=== PATIENT | female | born 1970 | race Caucasian/White ===

== ENCOUNTER → 2018-01-08 08:40 | Outpatient (CLI) | payer OTHER, SELFPAY ==
[2018-01-08 12:34] LABS: Absolute Neutrophil Count 5.3 X10^3/uL (2.0-7.7); Basophil# 0.04 X10^3/uL; Basophil% 0.5 % (0-1); Eosinophil# 0.32 X10^3/uL; Eosinophils% 4.1 % (0-5); Hematocrit 39.4 % (37-47); Hemoglobin 12.6 g/dl (12.0-15.0); Lymphocyte % 19.3 % (19-41); Mean Corpuscular Hgb 26.9 pg (27.0-32.0); Mean Platelet Vol. 10.2 fl (6.2-12.0); Monocyte# 0.58 X10^3/uL; Monocyte% 7.5 % (0-10); Neutrophil # 5.33 X10^3/uL (2.7-7.7); Neutrophil % 68.5 % (47-70); Platelet Count 333 K/mm3 (150-450); RBC Distribution Width CV 14.2 % (11.6-14.6); RBC Distribution Width SD 42.8 fl (35.1-43.9); Red Blood Count 4.69 M/mm3 (4.2-5.4); White Blood Count 7.8 K/mm3 (4.4-11.0)
[2018-01-08 12:49] LABS: POSITIVE COUNT NO; POSITIVE DIFFERENTIAL NO; POSITIVE MORPHOLOGY NO
[2018-01-08 12:57] LABS: T3 Total - Triiodothyronine 0.92 ng/mL (0.6-1.81); Vitamin B12 1122 pg/mL (211-911); Vitamin D,25 Hydroxy 28.5 ng/mL (29.95-100.01)
[2018-01-08 13:03] LABS: ALB/GLOB Ratio 1.1 RATIO (0.9-2.4); AST(SGOT) 20 U/L (15-37); Alanine Aminotransfer ALT/SGPT 31 U/L (13-56); Alkaline Phosphatase 75 U/L (45-117); Anion Gap 8 (5-15); BUN 24 mg/dL (7-18); Calcium,Total 8.8 mg/dL (8.5-10.1); Chloride 106 mmol/L (98-107); Cholesterol 160 mg/dL (200); Creatinine, Serum 0.83 mg/dL (0.55-1.02); EST Glomerular Filtration Rate 79 mL/min (>60); Est Glom Filt Rate - Afr Amer 96 mL/min (>60); Globulin 3.8 g/dL (2.2-4.2); Glucose 92 mg/dL (74-106); High Density Lipoprotein 34 mg/dL; Iron 42 ug/dL (50-170); Potassium 4.3 mmol/L (3.5-5.1); Protein, Total 7.8 g/dL (6.4-8.2); Sodium Level 139 mmol/L (136-145); T4 Free Direct 1.02 ng/dL (0.76-1.46); Thyroid Stim Hormone (TSH) 1.48 uIU/mL (0.358-3.74); Triglycerides 100 mg/dL; Very Low Density Lipoprotein 20 mg/dL (5-40)
== END ==
PROVIDERS: Family Provider Family Medicine; PCP Family Medicine; Visit Provider Family Medicine
DX: Z00.01 Encounter for general adult medical examination with abnormal findings (principal); E03.9 Hypothyroidism, unspecified; D64.9 Anemia, unspecified; R73.01 Impaired fasting glucose
CPT/HCPCS: 36415; 80053; 80061; 82306; 82607; 83540; 84439; 84443; 84480; 85025

== ENCOUNTER 2018-01-29 08:00 | Outpatient (RCR) | payer OTHER, SELFPAY | END 2018-01-29 23:59 | LOC: NS 08:00 | PROVIDERS: Family Provider Family Medicine; PCP Family Medicine; Referring Provider Family Medicine; Visit Provider Family Medicine | DX: E66.9 Obesity, unspecified (principal); Z68.35 Body mass index [BMI] 35.0-35.9, adult; E03.9 Hypothyroidism, unspecified; E28.2 Polycystic ovarian syndrome; R73.01 Impaired fasting glucose; Z71.3 Dietary counseling and surveillance | CPT/HCPCS: 97802; 97803 ==

== ENCOUNTER 2018-02-26 09:00 | Outpatient (RCR) | payer OTHER, SELFPAY | END 2018-02-28 23:59 | LOC: NS 09:00 | PROVIDERS: Family Provider Family Medicine; PCP Family Medicine; Referring Provider Family Medicine; Visit Provider Family Medicine | DX: E66.9 Obesity, unspecified (principal); Z68.35 Body mass index [BMI] 35.0-35.9, adult; E03.9 Hypothyroidism, unspecified; E28.2 Polycystic ovarian syndrome; R73.01 Impaired fasting glucose; Z71.3 Dietary counseling and surveillance | CPT/HCPCS: 97803 ==

== ENCOUNTER → 2018-03-05 10:20 | Outpatient (CLI) | payer OTHER, SELFPAY ==
--- NOTE | 2018-03-05 10:21 | BI_ITS ---
MAMMOGRAPHY - BILATERAL SCREENING REASON FOR EXAM: Female, 47 years old. Routine annual screening examination. PERTINENT HISTORY: Grandmother with breast cancer. TECHNIQUE: Digital bilateral breast shorty (3D mammographic acquisition) in the CC and MLO projections. 2-D mediolateral oblique (MLO) and craniocaudad (CC) views of both breasts were obtained. CAD: Full Field Digital Mammography with Computer Added Detection was performed. COMPARISON: Comparison is made with prior study dated February 02, 2017 and September 07, 2015. FINDINGS: Breast Composition: There are scattered areas of fibroglandular density. There are no dominant masses or suspicious calcifications. No other significant abnormalities are identified. There has been no significant change since the prior study. BI/SCREENING MAMM (CAD), BILAT IMPRESSION: Stable bilateral screening mammogram. Yearly follow-up mammogram recommended. (A) ASSESSMENT CATEGORY: BIRADS Category 1: Negative. A letter regarding these results will be sent to the patient by the facility within 30 days. Approximately 10% of breast cancers are not detected by mammography. A normal mammogram should not delay biopsy of a clinically suspicious abnormality. [id number] Electronically Signed: Kings Bassett MD at 14:29 EST Tel [phone], Service support ,
== END ==
PROVIDERS: Family Provider Family Medicine; PCP Family Medicine; Visit Provider Family Medicine
DX: Z12.31 Encounter for screening mammogram for malignant neoplasm of breast (principal)
CPT/HCPCS: 77063; 77067

== ENCOUNTER 2018-03-12 08:44 | Outpatient (RCR) | payer OTHER, SELFPAY ==
--- OUTSIDE RECORDS SUMMARY | 2018-04-28 04:29 | XMS RPT_ITS ---
:1970 Author Organization [facility] Care Team Providers Name Role Phone Malys, Sonal Attending Unavailable Malys, Sonal Referring Unavailable Malys, Sonal Primary Care Unavailable Malys, Sonal Attending Unavailable Malys, Sonal Primary Care Unavailable Malys, Sonal Attending Unavailable Malys, Sonal Referring Unavailable Malys, Sonal Primary Care Unavailable Malys, Sonal Attending Unavailable Malys, Sonal Referring Unavailable Malys, Sonal Primary Care Unavailable Malys, Sonal Attending Unavailable Sonal Botello Referring Unavailable Malys, Sonal Primary Care Unavailable Malys, Sonal Attending Unavailable Rosmery, Sonal Primary Care Unavailable PROBLEMS PROBLEMS DATE TYPE CONDITION / CODE ATTENDING STATUS SOURCE 04/16/2018 Unknown E66.9 - Obesity, Sonal Botello Active [place] unspecified / Community E66.9(ICD-10) Hospital Repository PROCEDURES PROCEDURES No Procedure Records FoundRESULTS RESULTS SCREENING MAMM (CAD), Observed: 03/05/2018 Status: F Source: [place]IL[place] 10:21 AM [facility] REPOSITORY [facility] Imaging Services [address] [place] [address] SCREENING MAMM (CAD), BILAT MR#: [id number] Acct: [id number] Name: NICKIE PEREA Rep #: [id number] : 1970 F 47 From: Kings Bassett MD PCP: Sonal Botello DO Status: REG CLI Study: SCREENING MAMM (CAD), BILAT Date of Exam: 03/05/18 Exam# [id number] Ordering Dr: Sonal Botello DO MAMMOGRAPHY - BILATERAL SCREENING REASON FOR EXAM: Female, 47 years old. Routine annual screening examination. PERTINENT HISTORY: Grandmother with breast cancer. TECHNIQUE: Digital bilateral breast shorty (3D mammographic acquisition) in the CC and MLO projections. 2-D mediolateral oblique (MLO) and craniocaudad (CC) views of both breasts were obtained. CAD: Full Field Digital Mammography with Computer Added Detection was performed. COMPARISON: Comparison is made with prior study dated February 02, 2017 and September 07, 2015. FINDINGS: Breast Composition: There are scattered areas of fibroglandular density. There are no dominant masses or suspicious calcifications. No other significant abnormalities are identified. There has been no significant change since the prior study. BI/SCREENING MAMM (CAD), BILAT IMPRESSION: Stable bilateral screening mammogram. Yearly follow-up mammogram recommended. (A) ASSESSMENT CATEGORY: BIRADS Category 1: Negative. A letter regarding these results will be sent to the patient by the facility within 30 days. Approximately 10% of breast cancers are not detected by mammography. A normal mammogram should not delay biopsy of a clinically suspicious abnormality. 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 CBC W/DIFF, AUTOMATED Collected: 01/08/2018 Status: F Source: [place] 8:43 AM [facility] REPOSITORY TYPE CODE TESTS RESULT OUT OF RANGE REFERENCE UNITS LAB L100.1000 4.4-11.0 K/mm3 Normal WBC 7.8 LAB L100.1200 4.2-5.4 M/mm3 Normal RBC 4.69 LAB L100.1300 12.0-15.0 g/dl Normal HGB 12.6 LAB L100.1400 37-47 % Normal HCT 39.4 LAB L100.1500 81-99 fL Normal MCV 84.0 LAB L100.1600 27.0-32.0 pg Low MCH 26.9 LAB L100.1700 32-36 g/gl Normal MCHC 32.0 LAB L100.1810 11.6-14.6 % Normal RDW CV 14.2 LAB L100.1820 35.1-43.9 fl Normal RDW SD 42.8 LAB L100.1900 150-450 K/mm3 Normal PLT 333 LAB L100.2000 6.2-12.0 fl Normal MPV 10.2 LAB L100.2100 47-70 % Normal NEUT% 68.5 LAB L100.2200 19-41 % Normal LY% 19.3 LAB L100.2300 0-10 % Normal MONO% 7.5 LAB L100.2400 0-5 % Normal EO% 4.1 LAB L100.2500 0-1 % Normal BASO% 0.5 LAB L100.2550 0.0-0.9 % Normal IM GRAN % 0.100 Result Comment: IG% - Immature Granulocytes (promyelocytes, myelocytes and metamyelocytes) > 1% indicates that a LEFT SHIFT is Present. LAB L100.2620 2.0-7.7 X10 3/uL Normal Absolute Neut 5.3 LAB L100.2720 0.83-4.51 X10 3/ul Normal Absolute Lymph 1.50 Performed By: #### L100.0100 #### [facility] [address] [place], [address] T3 TOTAL - TRIIODOTHYRONINE Collected: 01/08/2018 Status: F Source: [place] 8:43 AM [facility] REPOSITORY TYPE CODE TESTS RESULT OUT OF RANGE REFERENCE UNITS LAB L501.9186 0.6-1.81 ng/mL Normal T3 Total 0.92 Performed By: #### L501.9186, L503.0105, L506.1000 #### [facility] [address] [place], [address] VITAMIN B12 Collected: 01/08/2018 Status: F Source: [place] 8:43 AM [facility] REPOSITORY TYPE CODE TESTS RESULT OUT OF REFERENCE UNITS RANGE LAB L503.0105 211-911 pg/mL High Vitamin B12 1122 Performed By: #### L501.9186, L503.0105, L506.1000 #### [facility] [address] [place], [address] VITAMIN D,25 HYDROXY Collected: 01/08/2018 Status: F Source: [place] 8:43 AM [facility] REPOSITORY TYPE CODE TESTS RESULT OUT OF REFERENCE UNITS RANGE LAB L506.1000 29.95-100.01 ng/mL Low Vitamin D 28.5 25-OH Result Comment: Vitamin D 25(OH) Status Range Deficiency <20 ng/mL (50nmol/L) Insuffciency 20 - 30 ng/mL (50 - 75 nmol/L) Sufficiency 30 - 100 ng/mL (75 - 250 nmol/L) Toxicity >100 ng/mL (>250 nmol/L) Performed By: #### L501.9186, L503.0105, L506.1000 #### [facility] [address] [place], [address] COMPREHENSIVE METABOLIC Collected: 01/08/2018 Status: F Source: [place] VALENTINE 8:43 AM [facility] REPOSITORY TYPE CODE TESTS RESULT OUT OF RANGE REFERENCE UNITS LAB L501.0100 74-106 mg/dL Normal GLU 92 Result Comment: Please note revised GLUCOSE reference range effective 2017. LAB L501.1000 7-18 mg/dL High BUN 24 LAB L501.1100 0.55-1.02 mg/dL Normal CREAT,SERUM 0.83 Result Comment: The validity of the calculated GFR AND GFRAA in patients over 70 years has not been determined. Clinical correlation is essential. LAB L501.1110 >60 mL/min Normal EST GFR 79 Result Comment: Non- GFR Calc LAB L501.1115 >60 mL/min Normal EST GFR - AA 96 Result Comment: GFR Calc LAB L501.1300 10-20 RATIO High BUN/CRE 29.0 LAB L501.1500 6.4-8.2 g/dL T Normal PROT 7.8 LAB L501.1800 3.2-5.0 g/dL Normal ALB 4.0 LAB L501.1950 2.2-4.2 g/dL Normal GLOB 3.8 LAB L501.2000 0.9-2.4 RATIO Normal A/G 1.1 LAB L501.2200 8.5-10.1 mg/dL CA Normal 8.8 LAB L501.4100 15-37 U/L Normal AST 20 LAB L501.4305 45-117 U/L Normal ALK P 75 LAB L501.4405 13-56 U/L Normal ALT 31 LAB L501.4600 0.20-1.00 mg/dL T Normal BILI 0.40 LAB L501.5300 136-145 mmol/L NA Normal 139 LAB L501.5600 3.5-5.1 mmol/L K Normal 4.3 LAB L501.5900 98-107 mmol/L CL Normal 106 LAB L501.6100 21.0-32.0 mmol/L Normal CO2 25.0 LAB L501.6200 5-15 Normal GAP 8 Performed By: #### L500.4050, L500.4100, L501.9520, L503.6150, L506.0400 #### [facility] [address] [place], [place], [id number] LIPID PROFILE Collected: 01/08/2018 Status: F Source: [place] 8:43 AM [facility] REPOSITORY TYPE CODE TESTS RESULT OUT OF RANGE REFERENCE UNITS LAB L501.4900 200 mg/dL Normal CHOL 160 Result Comment: <200 mg/dL Desirable 200-240 mg/dL Borderline >240 mg/dL High Risk LAB L501.5000 mg/dL Normal TRIG 100 Result Comment: The drugs N-Acetylcysteine and Metamizole may falsely depress this assay. Serum Triglycerides Reference Interval Normal <150 mg/dL Borderline high 150 - 199 mg/dL High 200 - 499 mg/dL Very High > or = 500 mg/dL LAB L501.6400 mg/dL Low HDL 34 Result Comment: The drugs N-Acetylcysteine and Metamizole may falsely depress this assay. Reference Range HDL <40 mg/dL Low HDL Cholesterol HDL >or= 60 mg/dL High HDL Cholesterol LAB L501.6500 0-130 mg/dL Normal LDL 106 LAB L501.6600 5-40 mg/dL Normal VLDL 20 Performed By: #### L500.4050, L500.4100, L501.9520, L503.6150, L506.0400 #### [facility] [address] [place], [place], [id number] THYROID STIM HORMONE Collected: 01/08/2018 Status: F Source: [place] (TSH) 8:43 AM [facility] REPOSITORY TYPE CODE TESTS RESULT OUT OF RANGE REFERENCE UNITS LAB L501.9520 0.358-3.74 uIU/mL Normal TSH 1.48 Performed By: #### L500.4050, L500.4100, L501.9520, L503.6150, L506.0400 #### [facility] [address] [place], [address] IRON Collected: 01/08/2018 Status: F Source: [place] 8:43 AM [facility] REPOSITORY TYPE CODE TESTS RESULT OUT OF RANGE REFERENCE UNITS LAB L503.6150 50-170 ug/dL Low IRON 42 Performed By: #### L500.4050, L500.4100, L501.9520, L503.6150, L506.0400 #### [facility] [address] [place], [address] T4 FREE DIRECT Collected: 01/08/2018 Status: F Source: [place] 8:43 AM [facility] REPOSITORY TYPE CODE TESTS RESULT OUT OF RANGE REFERENCE UNITS LAB L506.0400 0.76-1.46 ng/dL Normal T4 FREE 1.02 DIRECT Performed By: #### L500.4050, L500.4100, L501.9520, L503.6150, L506.0400 #### [facility] [address] [place], [address] ALLERGIES ALLERGIES No Allergies Records FoundENCOUNTERS ENCOUNTERS ADMIT/DISCHARGE ACCOUNT ADMITTING ENCOUNTER LOCATION SOURCE NUMBER CLASS 04/16/2018 [id number] Ambulatory [place] 2 [facility] ing:NS Repository 03/12/2018/ [id number] Ambulatory [place] 8 4 [facility] ing:NS Repository 03/05/2018 [id number] Ambulatory [place] 5 [facility] ing:OPBI Repository 02/26/2018/ [id number] Ambulatory [place] 8 0 [facility] ing:NS Repository 01/29/2018/ [id number] Ambulatory [place] 8 8 [facility] ing:NS Repository 01/08/2018 [id number] Ambulatory [place] 3 [facility] ing:BFHLAB Repository PAYERS PAYERS ENCOUNTER GUARANTOR PAYER SUBSCRIBER SOURCE 04/16/2018 NICKIE [id number] Primary NICKIE JONES: [place] Insurance[id number] [address]Adp: [id number] Repository Date:4751-18-82TT [address] [place] [address]DX: 04/16/2018 Secondary NOT GIVENUNK [place] Insurance:SELF PAY [facility] Number: Effective Repository Date:2018-04-01 03/12/2018 NICKIE [id number] Primary Insurance:[facility] AMAURY HERBERTB: [place] [employer] [id number] [place] [address]Uti: Number: Repository [id number] (HP) Date:7047-29-[address] [address], [place] [address]PB: CHECK WEBSITE 03/12/2018 Secondary NOT GIVENUNK [place] Insurance:SELF PAY [facility] Number: Effective Repository Date:2018-03-01 03/05/2018 NICKIE [id number] Primary Insurance:[facility] AMAURY HERBERTB: [place] [employer] [id number] Hospital [place] [address]Lom: Number: Repository [id number] () Date:7835-11-91[address] [address], [place] [address]VH: CHECK WEBSITE 03/05/2018 Secondary NOT GIVENUNK [place] Insurance:SELF PAY [facility] Number: Effective Repository Date:2018-01-21 02/26/2018 NICKIE [id number] Primary Insurance:[facility] AMAURY HERBERTB: [place] SPRZOILA [employer] [id number] Hospital [place] [address]Slo: Number: Repository [id number] () Date:6188-22-45LC [address] [address]VFFNFMT, [place] [address]OF: CHECK WEBSITE 02/26/2018 Secondary NOT GIVENUNK [place] Insurance:SELF PAY [facility] Number: Effective Repository Date:2018-01-30 01/29/2018 NICKIE [id number] Primary Insurance:[facility] AMAURY HERBERTB: [place] [employer] [id number] Hospital [place] [address]Llq: Number: Repository [id number] (HP) Date:1213-29-42X[address] [address], [place] [address]SE: CHECK WEBSITE 01/29/2018 Secondary NOT GIVENUNK [place] Insurance:SELF PAY [facility] Number: Effective Repository Date:2018-01-14 01/08/2018 NICKIEMERCEDES [id number] Primary Insurance:[facility] Amaury HerbertB: [place] SPRU[place] [facility] [id number], [place] [address]Kpc: Number: Repository [id number] (HP) Date:8035-52-51HA [address] [address]ZKEPD, [place] [address]NZ: CHECK WEBSITE 01/08/2018 Secondary NOT GIVENUNK [place] Insurance:SELF PAY [facility] Number: Effective Repository Date:2018-01-08
== END 2018-03-31 23:59 ==
LOC: NS 08:44
PROVIDERS: Family Provider Family Medicine; PCP Family Medicine; Referring Provider Family Medicine; Visit Provider Family Medicine
DX: E66.9 Obesity, unspecified (principal); Z68.35 Body mass index [BMI] 35.0-35.9, adult; E03.9 Hypothyroidism, unspecified; E28.2 Polycystic ovarian syndrome; R73.01 Impaired fasting glucose; Z71.3 Dietary counseling and surveillance
CPT/HCPCS: 97803

== ENCOUNTER 2018-04-16 11:00 | Outpatient (RCR) | payer OTHER, SELFPAY | END 2018-05-01 23:59 | LOC: NS 11:00 | PROVIDERS: Family Provider Family Medicine; PCP Family Medicine; Referring Provider Family Medicine; Visit Provider Family Medicine | DX: E66.9 Obesity, unspecified (principal); Z68.35 Body mass index [BMI] 35.0-35.9, adult; E03.9 Hypothyroidism, unspecified; E28.2 Polycystic ovarian syndrome; R73.01 Impaired fasting glucose; Z71.3 Dietary counseling and surveillance | CPT/HCPCS: 97803 ==

== ENCOUNTER 2018-05-07 09:48 | Outpatient (RCR) | payer OTHER, SELFPAY | END 2018-05-07 23:59 | disposition home or self-care (01) | LOC: NS 09:48 | PROVIDERS: Family Provider Family Medicine; PCP Family Medicine; Referring Provider Family Medicine; Visit Provider Family Medicine | DX: E66.9 Obesity, unspecified (principal); Z68.35 Body mass index [BMI] 35.0-35.9, adult; E03.9 Hypothyroidism, unspecified; E28.2 Polycystic ovarian syndrome; R73.01 Impaired fasting glucose; Z71.3 Dietary counseling and surveillance | CPT/HCPCS: 97803 ==

== ENCOUNTER → 2018-11-26 | Outpatient (CLI) | payer OTHER, SELFPAY ==
[2018-11-26 15:48] LABS: Absolute Lymphocyte Count 1.96 X10^3/uL (0.83-4.51); Absolute Neutrophil Count 5.7 X10^3/uL (2.0-7.7); Basophil# 0.08 X10^3/uL; Basophil% 0.9 % (0-1); Eosinophil# 0.68 X10^3/uL; Eosinophils% 7.4 % (0-5); Hematocrit 41.2 % (37-47); Hemoglobin 13.3 g/dL (12.0-15.0); Lymphocyte # 1.96 X10^3/ul (4.0); Lymphocyte % 21.4 % (19-41); Mean Corp Hgb Conc 32.3 g/dL (32-36); Mean Corpuscular Hgb 28.1 pg (27.0-32.0); Mean Corpuscular Volume 86.9 fL (81-99); Monocyte# 0.69 X10^3/uL; Monocyte% 7.5 % (0-10); NRBC Flagged by Analyzer 0 % (0-5); Neutrophil # 5.72 X10^3/uL (2.7-7.7); Neutrophil % 62.6 % (47-70); Platelet Count 335 K/mm3 (150-450); RBC Distribution Width CV 13.2 % (11.6-14.6); RBC Distribution Width SD 41.8 fl (35.1-43.9); Red Blood Count 4.74 M/mm3 (4.2-5.4); White Blood Count 9.2 K/mm3 (4.4-11.0)
[2018-11-26 16:08] LABS: Progesterone Level 10.52 ng/mL (See Comment); Vitamin D,25 Hydroxy 39.3 ng/mL (29.95-100.01)
[2018-11-26 17:30] LABS: AST(SGOT) 16 U/L (15-37); Alanine Aminotransfer ALT/SGPT 31 U/L (13-56); Albumin, Serum 4.1 g/dL (3.2-5.0); Alkaline Phosphatase 75 U/L (45-117); Anion Gap 6 (5-15); BUN 31 mg/dL (7-18); BUN/Creat Ratio 36.9 RATIO (10-20); Calcium,Total 9.2 mg/dL (8.5-10.1); Chloride 108 mmol/L (98-107); Creatinine, Serum 0.84 mg/dL (0.55-1.02); EST Glomerular Filtration Rate 78 mL/min (>60); Est Glom Filt Rate - Afr Amer 94 mL/min (>60); Estradiol 75.4 pg/mL; Ferritin 31 ng/mL (8-252); Follicle Stimulating Hormone 3.7 mIU/mL; Free T3 2.2 pg/mL (2.18-3.98); Glucose 84 mg/dL (74-106); Iron 53 ug/dL (50-170); Potassium 4.2 mmol/L (3.5-5.1); Protein, Total 8.1 g/dL (6.4-8.2); Sodium Level 138 mmol/L (136-145); T4 Free Direct 0.86 ng/dL (0.76-1.46); Thyroid Stim Hormone (TSH) 2.38 uIU/mL (0.358-3.74)
== END | disposition home or self-care (01) ==
LOC: BFHLAB 11:57
PROVIDERS: Family Provider Family Medicine; PCP Family Medicine; Visit Provider Family Medicine
DX: E03.9 Hypothyroidism, unspecified (principal); E28.2 Polycystic ovarian syndrome; D64.9 Anemia, unspecified; N92.0 Excessive and frequent menstruation with regular cycle; R73.01 Impaired fasting glucose; E55.9 Vitamin D deficiency, unspecified
CPT/HCPCS: 36415; 80053; 82306; 82670; 82728; 83001; 83002; 83540; 84144; 84439; 84443; 84481; 85025

== ENCOUNTER → 2018-12-24 13:34 | Outpatient (CLI) | payer OTHER, SELFPAY | PROVIDERS: Family Provider Family Medicine; PCP Family Medicine; Referring Provider Family Medicine; Visit Provider Family Medicine | DX: G47.30 Sleep apnea, unspecified (principal); G47.10 Hypersomnia, unspecified | CPT/HCPCS: 95806 ==

== ENCOUNTER 2019-01-14 10:00 | Outpatient (RCR) | payer OTHER, SELFPAY | END 2019-01-29 23:59 | LOC: NS 10:00 | PROVIDERS: Family Provider Family Medicine; PCP Family Medicine; Visit Provider Family Medicine | DX: Z71.3 Dietary counseling and surveillance (principal); E66.9 Obesity, unspecified | CPT/HCPCS: 97802; 97803 ==

== ENCOUNTER 2019-02-11 09:18 | Outpatient (RCR) | payer OTHER, SELFPAY | END 2019-02-28 23:59 | LOC: NS 09:18 | PROVIDERS: Family Provider Family Medicine; PCP Family Medicine; Visit Provider Family Medicine | DX: Z71.3 Dietary counseling and surveillance (principal); E66.9 Obesity, unspecified | CPT/HCPCS: 97803 ==

== ENCOUNTER → 2019-02-24 10:33 | Outpatient (CLI) | payer OTHER, SELFPAY | PROVIDERS: Family Provider Family Medicine; PCP Family Medicine; Referring Provider Family Medicine; Visit Provider Family Medicine | DX: G47.33 Obstructive sleep apnea (adult) (pediatric) (principal) ==

== ENCOUNTER → 2019-02-24 12:15 | Outpatient (CLI) | payer OTHER, SELFPAY ==
[2019-02-24 08:13] VITALS: BMI 33.9
[2019-03-02 21:06] LABS: HPV APTIMA, High Risk Negative (Negative)
== END ==
PROVIDERS: Family Provider Family Medicine; PCP Family Medicine; Referring Provider Nurse Practitioner Women's Health; Visit Provider Nurse Practitioner Women's Health
DX: Z12.4 Encounter for screening for malignant neoplasm of cervix (principal)
CPT/HCPCS: 87624; 88175; G0145

== ENCOUNTER → 2019-03-11 12:50 | Outpatient (CLI) | payer OTHER, SELFPAY ==
[2019-02-24 08:13] VITALS: BMI 33.9
--- NOTE | 2019-03-11 13:09 | US_ITS ---
STUDY: ULTRASOUND OF THE FEMALE PELVIS - COMPLETE REASON FOR EXAM: Female, 48 years old. Menorrhagia TECHNIQUE: Transabdominal and Transvaginal TECHNICAL QUALITY: Adequate. COMPARISON: 05/03/2014 FINDINGS: The uterus is anteverted and is in a midline position. The uterus measures 10.3 x 6.1 x 5.3 cm. Normal uterine cervix. The endometrium measures 11 mm in thickness, and is hyperechoic. There is no demonstrated endometrial mass. There are 2 fibroids noted in the uterus, measuring 2.5 x 2.0 cm and 2.4 x 2.3 cm. The right ovary is visualized. The right ovary measures 3.6 x 2.8 x 2.7 cm. There are physiologic follicles noted in the right ovary. There is no visualized right adnexal mass or complex lesion. There is normal arterial and normal venous vascularity. The left ovary is visualized. The left ovary measures 3.3 x 3.2 x 1.8 cm. There is no left ovarian cyst or ovarian mass. There is no visualized left adnexal mass or complex lesion. There is normal arterial and normal venous vascularity. There is a small amount of pelvic free fluid. US/Pelvic (Non ) IMPRESSION: Fibroid uterus. Thickened endometrium which is likely due to cyclic change. Normal bilateral ovaries with normal Doppler flow. Small amount pelvic free fluid. Electronically Signed: Vidal Jose, at 20:32 EST Tel , Service support ,
--- NOTE | 2019-03-11 13:09 | US_ITS ---
STUDY: ULTRASOUND OF THE FEMALE PELVIS - COMPLETE REASON FOR EXAM: Female, 48 years old. Menorrhagia TECHNIQUE: Transabdominal and Transvaginal TECHNICAL QUALITY: Adequate. COMPARISON: 05/03/2014 FINDINGS: The uterus is anteverted and is in a midline position. The uterus measures 10.3 x 6.1 x 5.3 cm. Normal uterine cervix. The endometrium measures 11 mm in thickness, and is hyperechoic. There is no demonstrated endometrial mass. There are 2 fibroids noted in the uterus, measuring 2.5 x 2.0 cm and 2.4 x 2.3 cm. The right ovary is visualized. The right ovary measures 3.6 x 2.8 x 2.7 cm. There are physiologic follicles noted in the right ovary. There is no visualized right adnexal mass or complex lesion. There is normal arterial and normal venous vascularity. The left ovary is visualized. The left ovary measures 3.3 x 3.2 x 1.8 cm. There is no left ovarian cyst or ovarian mass. There is no visualized left adnexal mass or complex lesion. There is normal arterial and normal venous vascularity. There is a small amount of pelvic free fluid. US/Transvaginal Non- IMPRESSION: Fibroid uterus. Thickened endometrium which is likely due to cyclic change. Normal bilateral ovaries with normal Doppler flow. Small amount pelvic free fluid. Electronically Signed: Vidal Jose, at 20:32 EST Tel , Service support ,
--- NOTE | 2019-03-11 13:10 | BI_ITS ---
MAMMOGRAPHY - BILATERAL SCREENING REASON FOR EXAM: Female, 48 years old. Routine annual screening examination. PERTINENT HISTORY: Grandmother with breast cancer. TECHNIQUE: Digital bilateral breast matias (3D mammographic acquisition) in the CC and MLO projections. 2-D mediolateral oblique (MLO) and craniocaudad (CC) views of both breasts were obtained. CAD: Full Field Digital Mammography with Computer Added Detection was performed. COMPARISON: Comparison is made with prior examination dated March 05, 2018 and February 02, 2017. FINDINGS: Breast Composition: There are scattered areas of fibroglandular density. There are no dominant masses or suspicious calcifications. No other significant abnormalities are identified. There has been no significant change since the prior study. BI/SCREEN MAMM (CAD) W/MATIAS BILAT IMPRESSION: Stable bilateral screening mammogram. Yearly follow-up mammogram recommended. (A) ASSESSMENT CATEGORY: BIRADS Category 1: Negative. A letter regarding these results will be sent to the patient by the facility within 30 days. Approximately 10% of breast cancers are not detected by mammography. A normal mammogram should not delay biopsy of a clinically suspicious abnormality. [id number] Electronically Signed: Kings Bassett, at 14:56 EST , Service support ,
[2019-03-11 14:00] LABS: T4 Free Direct 0.88 ng/dL (0.76-1.46); Thyroid Stim Hormone (TSH) 0.58 uIU/mL (0.358-3.74)
== END ==
PROVIDERS: Family Provider Family Medicine; PCP Family Medicine; Referring Provider Family Medicine; Visit Provider Family Medicine
DX: Z12.31 Encounter for screening mammogram for malignant neoplasm of breast (principal); E03.9 Hypothyroidism, unspecified; N92.0 Excessive and frequent menstruation with regular cycle; N85.2 Hypertrophy of uterus; Z86.018 Personal history of other benign neoplasm
CPT/HCPCS: 36415; 76830; 76856; 77063; 77067; 84439; 84443; 84481; 93976

== ENCOUNTER → 2019-04-14 17:18 | Outpatient (CLI) | payer OTHER, SELFPAY ==
--- NOTE | 2019-04-14 | EMB_PTH ---
PATIENT: NICKIE PEREA LOC: [facility] U#:[id number] AGE/SX: 54/F ROOM: RE04/14/[address]: Dr. Toña Thakkar MD : 1970 BED: DIS: SPEC #: [id number] RECD: 04/14/19 16:32 STATUS: NAOMIE KORY #: [id number] PATRICIA: 04/14/19 00:[address]: Toña Thakkar DEPT: SURGICAL PATHOLOGY RECD BY: Yehuda Trammell ENTERED: 04/15/19 08:36 SP TYPE: ENDOM BX/C ML DR: Dr. Sonal Botello DO Tissues: Endometrium, NOS Procedures: Surgery Specimen Level IV HEADER OPERATION: Endometrial biopsy PRE-OP DIAGNOSIS: Uterine fibroid TISSUE SUBMITTED: Endometrial biopsy MICROSCOPIC DIAGNOSIS Endometrial biopsy: Secretory endometrium. SJ:irvin 04/16/19 MICROSCOPIC DESCRIPTION Slides are reviewed. GROSS DESCRIPTION Received is one container labeled with the patient's name and not further designated. The specimen consists of multiple irregular fragments of ellsworth-pink soft tissue that in aggregate measure 2.3 x 1.5 x 0.1 cm. The specimen is totally submitted in one cassette. / SJ:irvin 04/15/19 TC:4 CPT: 22695
[2019-04-14 12:00] VITALS: BMI 33.9
== END ==
PROVIDERS: Family Provider Family Medicine; PCP Family Medicine; Referring Provider Obstetrics & Gynecology; Visit Provider Obstetrics & Gynecology
DX: D25.9 Leiomyoma of uterus, unspecified (principal)
CPT/HCPCS: 88305

== ENCOUNTER 2019-04-22 09:00 | Outpatient (RCR) | payer OTHER, SELFPAY ==
[2019-02-24 08:13] VITALS: BMI 33.9
== END 2019-04-22 23:59 | disposition home or self-care (01) ==
LOC: NS 09:00
PROVIDERS: Family Provider Family Medicine; PCP Family Medicine; Visit Provider Family Medicine
DX: Z71.3 Dietary counseling and surveillance (principal); E66.9 Obesity, unspecified
CPT/HCPCS: 97803

== ENCOUNTER → 2019-06-10 12:32 | Outpatient (CLI) | payer OTHER, SELFPAY ==
[2019-04-14 12:00] VITALS: BMI 33.9
[2019-06-10 13:55] LABS: Free T3 3.1 pg/mL (2.18-3.98); T4 Free Direct 0.68 ng/dL (0.76-1.46); Thyroid Stim Hormone (TSH) 0.24 uIU/mL (0.358-3.74)
== END ==
PROVIDERS: PCP Family Medicine; Referring Provider Family Medicine; Visit Provider Family Medicine
DX: E03.9 Hypothyroidism, unspecified (principal)
CPT/HCPCS: 36415; 84439; 84443; 84481

== ENCOUNTER → 2019-09-08 09:31 | Outpatient (CLI) | payer OTHER, SELFPAY ==
[2019-04-14 12:00] VITALS: BMI 33.9
[2019-09-08 11:13] LABS: T4 Free Direct 0.78 ng/dL (0.76-1.46); Thyroid Stim Hormone (TSH) 0.86 uIU/mL (0.358-3.74)
== END ==
PROVIDERS: PCP Family Medicine; Referring Provider Family Medicine; Visit Provider Family Medicine
DX: E03.9 Hypothyroidism, unspecified (principal)
CPT/HCPCS: 36415; 84439; 84443

== ENCOUNTER → 2020-01-08 08:15 | Outpatient (CLI) | payer OTHER, SELFPAY ==
[2019-04-14 12:00] VITALS: BMI 33.9
[2020-01-08 09:41] LABS: Free T3 3.3 pg/mL (2.18-3.98); T4 Free Direct 0.72 ng/dL (0.76-1.46); Thyroid Stim Hormone (TSH) 1.86 uIU/mL (0.358-3.74)
== END ==
PROVIDERS: PCP Family Medicine; Referring Provider Family Medicine; Visit Provider Family Medicine
DX: E03.9 Hypothyroidism, unspecified (principal)
CPT/HCPCS: 36415; 84439; 84443; 84481

== ENCOUNTER → 2020-03-15 08:40 | Outpatient (CLI) | payer OTHER, SELFPAY ==
[2019-04-14 12:00] VITALS: BMI 33.9
[2020-03-15 09:39] LABS: Free T3 2.4 pg/mL (2.18-3.98); T4 Free Direct 0.74 ng/dL (0.76-1.46); Thyroid Stim Hormone (TSH) 1.81 uIU/mL (0.358-3.74)
== END ==
PROVIDERS: PCP Family Medicine; Referring Provider Family Medicine; Visit Provider Family Medicine
DX: E03.9 Hypothyroidism, unspecified (principal)
CPT/HCPCS: 36415; 84439; 84443; 84481

== ENCOUNTER 2020-03-15 08:50 | Outpatient (RCR) | payer OTHER, SELFPAY ==
[2019-04-14 12:00] VITALS: BMI 33.9
== END 2020-03-31 23:59 ==
LOC: NS 08:50
PROVIDERS: PCP Family Medicine; Visit Provider Family Medicine
DX: Z71.3 Dietary counseling and surveillance (principal); E66.9 Obesity, unspecified
CPT/HCPCS: 97802

== ENCOUNTER → 2020-03-18 08:40 | Outpatient (CLI) | payer OTHER, SELFPAY ==
[2019-04-14 12:00] VITALS: BMI 33.9
--- NOTE | 2020-03-18 08:42 | BI_ITS ---
MAMMOGRAPHY - BILATERAL SCREENING REASON FOR EXAM: Female, 49 years old. Routine annual screening examination. PERTINENT HISTORY: Grandmother with breast cancer. TECHNIQUE: Digital bilateral breast matias (3D mammographic acquisition) in the CC and MLO projections. 2-D mediolateral oblique (MLO) and craniocaudad (CC) views of both breasts were obtained. CAD: Full Field Digital Mammography with Computer Added Detection was performed. COMPARISON: Comparison is made with prior study dated 03/11/2019 and 03/05/2018. FINDINGS: Breast Composition: There are scattered areas of fibroglandular density. There are no dominant masses or suspicious calcifications. No other significant abnormalities are identified. There has been no significant change since the prior study. BI/SCREEN MAMM (CAD) W/MATIAS BILAT IMPRESSION: Stable bilateral screening mammogram. Yearly follow-up mammogram recommended. (A) ASSESSMENT CATEGORY: BIRADS Category 1: Negative. A letter regarding these results will be sent to the patient by the facility within 30 days. Approximately 10% of breast cancers are not detected by mammography. A normal mammogram should not delay biopsy of a clinically suspicious abnormality. [id number] Electronically Signed: Kings Bassett, at 10:01 EST , Service support ,
== END ==
PROVIDERS: PCP Family Medicine; Referring Provider Family Medicine; Visit Provider Family Medicine
DX: Z12.31 Encounter for screening mammogram for malignant neoplasm of breast (principal); Z80.3 Family history of malignant neoplasm of breast
CPT/HCPCS: 77063; 77067

== ENCOUNTER 2020-04-19 09:00 | Outpatient (RCR) | payer OTHER, SELFPAY ==
[2019-04-14 12:00] VITALS: BMI 33.9
== END 2020-05-01 23:59 ==
LOC: NS 09:00
PROVIDERS: PCP Family Medicine; Visit Provider Family Medicine
DX: Z71.3 Dietary counseling and surveillance (principal); E66.9 Obesity, unspecified
CPT/HCPCS: 97803

== ENCOUNTER 2020-05-10 09:16 | Outpatient (RCR) | payer OTHER, SELFPAY ==
[2019-04-14 12:00] VITALS: BMI 33.9
== END 2020-05-29 23:59 ==
LOC: NS 09:16
PROVIDERS: PCP Family Medicine; Visit Provider Family Medicine
DX: Z71.3 Dietary counseling and surveillance (principal); E66.9 Obesity, unspecified
CPT/HCPCS: 97803

== ENCOUNTER 2020-06-21 09:30 | Outpatient (RCR) | payer OTHER, SELFPAY ==
[2019-04-14 12:00] VITALS: BMI 33.9
== END 2020-06-21 23:59 | disposition home or self-care (01) ==
LOC: NS 09:30
PROVIDERS: PCP Family Medicine; Visit Provider Family Medicine
DX: Z71.3 Dietary counseling and surveillance (principal); E66.9 Obesity, unspecified
CPT/HCPCS: 97803

== ENCOUNTER → 2020-08-08 11:11 | Outpatient (CLI) | payer OTHER, SELFPAY ==
[2019-04-14 12:00] VITALS: BMI 33.9
[2020-08-08 13:01] LABS: Absolute Lymphocyte Count 2.33 X10^3/uL (0.83-4.51); Absolute Neutrophil Count 4.7 X10^3/uL (2.0-7.7); Basophil# 0.06 X10^3/uL; Basophil% 0.8 % (0-1); Eosinophil# 0.37 X10^3/uL; Eosinophils% 4.6 % (0-5); Hematocrit 43.7 % (37-47); Hemoglobin 13.4 g/dL (12.0-15.0); Lymphocyte # 2.33 X10^3/ul (0.83-4.51); Lymphocyte % 29.3 % (19-41); Mean Corp Hgb Conc 30.7 g/dL (32-36); Mean Corpuscular Hgb 26.5 pg (27.0-32.0); Mean Corpuscular Volume 86.5 fL (81-99); Monocyte# 0.53 X10^3/uL; Monocyte% 6.7 % (0-10); NRBC Flagged by Analyzer 0 % (0-5); Neutrophil # 4.65 X10^3/uL (2.7-7.7); Neutrophil % 58.3 % (47-70); Platelet Count 387 K/mm3 (150-450); RBC Distribution Width CV 13.4 % (11.6-14.6); RBC Distribution Width SD 42.7 fl (35.1-43.9); Red Blood Count 5.05 M/mm3 (4.2-5.4)
[2020-08-08 14:32] LABS: AST(SGOT) 16 U/L (15-37); Alanine Aminotransfer ALT/SGPT 36 U/L (13-56); Albumin, Serum 4.2 g/dL (3.2-5.0); Alkaline Phosphatase 71 U/L (45-117); Anion Gap 5 (5-15); BUN 17 mg/dL (7-18); BUN/Creat Ratio 19.9 RATIO (10-20); Calcium,Total 9.4 mg/dL (8.5-10.1); Chloride 103 mmol/L (98-107); Creatinine, Serum 0.85 mg/dL (0.55-1.02); EST Glomerular Filtration Rate 76 mL/min (>60); Est Glom Filt Rate - Afr Amer 92 mL/min (>60); Estradiol 22.4 pg/mL; Free T3 2.9 pg/mL (2.18-3.98); Globulin 4.1 g/dL (2.2-4.2); Glucose 93 mg/dL (74-106); Potassium 4.4 mmol/L (3.5-5.1); Protein, Total 8.3 g/dL (6.4-8.2); Sodium Level 137 mmol/L (136-145); T4 Free Direct 0.64 ng/dL (0.76-1.46)
== END ==
PROVIDERS: PCP Family Medicine; Referring Provider Family Medicine; Visit Provider Family Medicine
DX: E03.9 Hypothyroidism, unspecified (principal); R73.01 Impaired fasting glucose; N93.8 Other specified abnormal uterine and vaginal bleeding
CPT/HCPCS: 36415; 80053; 82670; 84439; 84443; 84481; 85025

== ENCOUNTER → 2020-10-10 14:51 | Outpatient (CLI) | payer OTHER, SELFPAY ==
[2019-04-14 12:00] VITALS: BMI 33.9
[2020-10-10 17:19] LABS: Absolute Lymphocyte Count 2.34 X10^3/uL (0.83-4.51); Absolute Neutrophil Count 6.9 X10^3/uL (2.0-7.7); Basophil# 0.05 X10^3/uL; Basophil% 0.5 % (0-1); Eosinophil# 0.28 X10^3/uL; Eosinophils% 2.7 % (0-5); Hematocrit 38.9 % (37-47); Hemoglobin 12.5 g/dL (12.0-15.0); Lymphocyte # 2.34 X10^3/ul (0.83-4.51); Lymphocyte % 22.7 % (19-41); Mean Corp Hgb Conc 32.1 g/dL (32-36); Mean Corpuscular Hgb 27.6 pg (27.0-32.0); Mean Corpuscular Volume 85.9 fL (81-99); Mean Platelet Vol. 10.7 fl (6.2-12.0); Monocyte# 0.69 X10^3/uL; Monocyte% 6.7 % (0-10); NRBC Flagged by Analyzer 0 % (0-5); Neutrophil # 6.92 X10^3/uL (2.7-7.7); Neutrophil % 67.1 % (47-70); Platelet Count 318 K/mm3 (150-450); RBC Distribution Width CV 13.4 % (11.6-14.6); RBC Distribution Width SD 41.9 fl (35.1-43.9); Red Blood Count 4.53 M/mm3 (4.2-5.4); White Blood Count 10.3 K/mm3 (4.4-11.0)
[2020-10-10 18:01] LABS: ALB/GLOB Ratio 1.1 RATIO (0.9-2.4); AST(SGOT) 17 U/L (15-37); Alanine Aminotransfer ALT/SGPT 32 U/L (13-56); Albumin, Serum 3.8 g/dL (3.2-5.0); Alkaline Phosphatase 70 U/L (45-117); Anion Gap 7 (5-15); BUN 22 mg/dL (7-18); BUN/Creat Ratio 29.1 RATIO (10-20); Calcium,Total 8.3 mg/dL (8.5-10.1); Chloride 101 mmol/L (98-107); Creatinine, Serum 0.76 mg/dL (0.55-1.02); EST Glomerular Filtration Rate 87 mL/min (>60); Est Glom Filt Rate - Afr Amer 105 mL/min (>60); Free T3 2.5 pg/mL (2.18-3.98); Globulin 3.4 g/dL (2.2-4.2); Glucose 114 mg/dL (74-106); Potassium 3.6 mmol/L (3.5-5.1); Protein, Total 7.2 g/dL (6.4-8.2); Sodium Level 136 mmol/L (136-145); T4 Free Direct 0.62 ng/dL (0.76-1.46); Thyroid Stim Hormone (TSH) 2.09 uIU/mL (0.358-3.74)
== END ==
PROVIDERS: PCP Family Medicine; Referring Provider Family Medicine; Visit Provider Family Medicine
DX: E03.9 Hypothyroidism, unspecified (principal); Z51.81 Encounter for therapeutic drug level monitoring
CPT/HCPCS: 36415; 80053; 84439; 84443; 84481; 85025

== ENCOUNTER → 2020-12-15 09:46 | Outpatient (CLI) | payer OTHER, SELFPAY ==
[2019-04-14 12:00] VITALS: BMI 33.9
[2020-12-15 11:52] LABS: AST(SGOT) 17 U/L (15-37); Alanine Aminotransfer ALT/SGPT 35 U/L (13-56); Albumin, Serum 3.7 g/dL (3.2-5.0); Alkaline Phosphatase 57 U/L (45-117); Anion Gap 5 (5-15); BUN 20 mg/dL (7-18); BUN/Creat Ratio 28.6 RATIO (10-20); Calcium,Total 8.9 mg/dL (8.5-10.1); Chloride 103 mmol/L (98-107); EST Glomerular Filtration Rate 95 mL/min (>60); Est Glom Filt Rate - Afr Amer 115 mL/min (>60); Free T3 2.7 pg/mL (2.18-3.98); Globulin 3.8 g/dL (2.2-4.2); Glucose 85 mg/dL (74-106); Protein, Total 7.5 g/dL (6.4-8.2); Sodium Level 137 mmol/L (136-145); T4 Free Direct 0.62 ng/dL (0.76-1.46); Thyroid Stim Hormone (TSH) 1.86 uIU/mL (0.358-3.74)
== END ==
PROVIDERS: PCP Family Medicine; Referring Provider Family Medicine; Visit Provider Family Medicine
DX: E83.51 Hypocalcemia (principal); E03.9 Hypothyroidism, unspecified
CPT/HCPCS: 36415; 80053; 84439; 84443; 84481

== ENCOUNTER → 2021-01-26 12:10 | Outpatient (CLI) | payer OTHER, SELFPAY ==
[2021-01-26 13:04] LABS: Free T3 3.3 pg/mL (2.18-3.98); T4 Free Direct 0.72 ng/dL (0.76-1.46); Thyroid Stim Hormone (TSH) 0.57 uIU/mL (0.358-3.74)
== END ==
PROVIDERS: PCP Family Medicine; Referring Provider Family Medicine; Visit Provider Family Medicine
DX: E03.9 Hypothyroidism, unspecified (principal)
CPT/HCPCS: 36415; 84439; 84443; 84481

== ENCOUNTER → 2021-01-27 11:03 | Outpatient (CLI) | payer OTHER, SELFPAY ==
--- NOTE | 2021-01-27 11:00 | BI_ITS ---
MAMMOGRAPHY - BILATERAL SCREENING REASON FOR EXAM: Female, 50 years old. Routine annual screening examination. PERTINENT HISTORY: Grandmother with breast cancer. TECHNIQUE: Digital bilateral breast matias (3D mammographic acquisition) in the CC and MLO projections. 2-D mediolateral oblique (MLO) and craniocaudad (CC) views of both breasts were obtained. CAD: Full Field Digital Mammography with Computer Added Detection was performed. COMPARISON: Comparison is made with prior study dated 03/18/2020 and 03/11/2019. FINDINGS: Breast Composition: There are scattered areas of fibroglandular density. There are no dominant masses or suspicious calcifications. No other significant abnormalities are identified. There has been no significant change since the prior study. BI/SCRN MAMM (CAD)W/MATIAS BILAT IMPRESSION: Stable bilateral screening mammogram. Yearly follow-up mammogram recommended. (A) ASSESSMENT CATEGORY: BIRADS Category 1: Negative. A letter regarding these results will be sent to the patient by the facility within 30 days. Approximately 10% of breast cancers are not detected by mammography. A normal mammogram should not delay biopsy of a clinically suspicious abnormality. [id number] Electronically Signed: Kings Bassett MD at 12:58 EDT , Service support ,
== END ==
PROVIDERS: PCP Family Medicine; Referring Provider Nurse Practitioner Women's Health; Visit Provider Nurse Practitioner Women's Health
DX: Z12.31 Encounter for screening mammogram for malignant neoplasm of breast (principal)
CPT/HCPCS: 77063; 77067

== ENCOUNTER → 2021-01-27 | Outpatient (CLI) | payer OTHER, SELFPAY | END | disposition home or self-care (01) | LOC: LABSPEC 13:23 | PROVIDERS: PCP Family Medicine; Referring Provider Physician Assistant Surgical; Visit Provider Physician Assistant Surgical | DX: Z11.52 Encounter for screening for COVID-19 (principal) | CPT/HCPCS: 87635; U0005; U0003 ==

== ENCOUNTER 2021-03-02 07:05 | Day surgery (SDC) | payer OTHER, SELFPAY ==
[2021-03-02 07:28] VITALS: BP 125/74; PULSE 94; RESP 18; TEMP 36.8; O2SAT 100; BMI 35.0
[2021-03-02 07:33] LABS: Internal QC Validated? YES +Cl - CLEAR BKGD; Pregnancy, Urine Negative Negative
[2021-03-02] MEDS: Lactated Ringers 1,000 ML 15 ML IV (07:40)
--- NOTE | 2021-03-02 08:06 | HP.PCM_ITS ---
History and Physical Date of Admission: 03/02/21 [facility] HPI Chief Complaint: Screening colonoscopy Fatou is a very pleasant 50-year-old with past history of hypothyroidism. She arrives here for screening colonoscopy. She has not had a colonoscopy in the past. She does not have any abdominal pain. She is not having any chest pain or shortness of breath. She does not have any problems with constipation or diarrhea. She is not having any bleeding. Overall she is in fairly good health. 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 Obesity PCOS (polycystic ovarian syndrome) PCOS (polycystic ovarian syndrome) Thyroid disease Tonsillectomy planned Surgical History H/O sinus surgery Hernia History of cholecystectomy Family History Father Heart disease Grandmother Breast cancer Colon cancer Aunt Colon cancer Mother COPD (chronic obstructive pulmonary disease) Other Anxiety Cancer Depression High cholesterol Myocardial infarction Suicide Thyroid disorder Social History ( number of children: 3 current occupational status: employed current occupation: [employer] [place] [employer] Smoking Status: Never smoker alcohol intake: never substance use type: does not use what type of physical activity do you participate in: walking frequency: 3-4 times per week seatbelt use: always do you feel safe at home: Yes 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 [employer] Exam Const General: cooperative, healthy appearing, comfortable, no acute distress, well developed and not cushingoid Nutritional Appearance: well nourished Orientation: alert, awake and oriented x3 HENMT Head: normal to inspection Ears: hearing grossly normal bilaterally Nose: external nose normal Mouth: oral mucosae normal Eyes General: appearance normal, both eyes and all related structures Alignment and Position: alignment normal Periorbital: periorbital findings normal Eyelids: eyelids normal Conjunctivae: conjunctivae normal Neck Neck: normal visual inspection Neck mass: No Thyroid: thyroid normal Carotids: no bruits Lymphatic: no lymphadenopathy noted Chest Chest palpation & inspection: normal inspection of the chest Resp Auscultation: Bilateral: Clear to Auscultation Cardio Rate: regular rate Rhythm: regular rhythm Pulses: posterior tibial pulses present GI Inspection: normal to inspection Auscultation: normal bowel sounds Palpation: soft and no hepatosplenomegaly Skin General: no rashes or lesions noted Neuro General: patient alert, patient awake and patient oriented x3 Cranial Nerves: CN's II-XI intact bilaterally Cognition: normal cognition Speech: speech normal Gait: normal gait Motor: muscle tone normal throughout Extrem General: no edema Psych Appearance: grossly normal Mental Status: mental status grossly normal Mood: congruent mood Affect: normal affect Speech and Movement: speech and movement normal Attitude: cooperative Thought Process: normal Thought Content: normal Judgment: judgment good Assessment and Plan Assessment and Plan 50-year-old comes in for screening colonoscopy. She was explained alternatives, risk, benefits including outstanding bleeding, infection, sepsis, perforation, need for emergent urgent . She will have an ASA of 1.
[2021-03-02 08:40] VITALS: BP 104/64; BP 125/74; PULSE 93; RESP 16; TEMP 36.2; O2SAT 95
--- NOTE | 2021-03-02 08:40 | OP.CCLET_ITS ---
12/06/2021 Sonal Botello [address] [place] [address] Re : Colonoscopy procedure for Carolee Stubbs Dear Dr. Botello This procedure was performed on March. My impressions and recommendations are as follows: Impressions : - The entire examined colon is normal. - Mild colonic spasm consistent with irritable bowel syndrome. - No specimens collected. Recommendations : - Discharge patient to home. - Resume previous diet. - Continue present medications. - Repeat colonoscopy in 5 years for screening purposes. - Return to GI office PRN. My findings are described in the full procedure note, which is enclosed. If I can be of further assistance, please feel free to contact me at . Sincerely, Edwardo Bender, 03/02/2021 8:40:20 AM This report has been signed electronically.
--- NOTE | 2021-03-02 08:40 | OP.COLON_ITS ---
Patient Name: Carolee Stubbs Procedure Date: 03/02/2021 8:03 AM Date of : 1970 Age: 50 Procedure: Colonoscopy Indications: Screening in patient at increased risk: Family history of 1st-degree relative with colorectal cancer before age 60 years Providers: Edwardo Bender DO Medicines: See the Anesthesia note for documentation of the administered medications Patient Profile: This is a 50 year old female. Refer to note in patient chart for documentation of history and physical. Last Colonoscopy: 5 years ago. Complications: No immediate complications. Procedure: Pre-Anesthesia Assessment: - Prior to the procedure, a History and Physical was performed, and patient medications and allergies were reviewed. The patient is competent. The risks and benefits of the procedure and the sedation options and risks were discussed with the patient. All questions were answered and informed consent was obtained. Patient identification and proposed procedure were verified by the physician in the pre-procedure area. Mental Status Examination: alert and oriented. Airway Examination: normal oropharyngeal airway and neck mobility. Respiratory Examination: clear to auscultation. CV Examination: normal. Prophylactic Antibiotics: The patient does not require prophylactic antibiotics. Prior Anticoagulants: The patient has taken no previous anticoagulant or antiplatelet agents. After reviewing the risks and benefits, the patient was deemed in satisfactory condition to undergo the procedure. The anesthesia plan was to use moderate sedation / analgesia (conscious sedation). Immediately prior to administration of medications, the patient was re-assessed for adequacy to receive sedatives. The heart rate, respiratory rate, oxygen saturations, blood pressure, adequacy of pulmonary ventilation, and response to care were monitored throughout the procedure. The physical status of the patient was re-assessed after the procedure. After I obtained informed consent, the scope was passed under direct vision. Throughout the procedure, the patient's blood pressure, pulse, and oxygen saturations were monitored continuously. The Colonoscope was introduced through the anus and advanced to the cecum, identified by the appendiceal orifice, ileocecal valve and palpation. The colonoscopy was performed without difficulty. The patient tolerated the procedure well. The quality of the bowel preparation was good. Moderate Sedation: Moderate (conscious) sedation was administered by the endoscopy nurse and supervised by the endoscopist. The following parameters were monitored: oxygen saturation, heart rate, blood pressure, and response to care. Total physician intraservice time was 15 minutes. Scope In: 8:16:55 AM Scope Withdrawal Time 0 hours 11 minutes 26 seconds Scope Out: 8:34:12 AM Total Procedure Duration Time 0 hours 17 minutes 17 seconds Findings: The perianal and digital rectal examinations were normal. The colon (entire examined portion) appeared normal. No additional abnormalities were found on retroflexion. There was mild spasm in the sigmoid colon. Impression: - The entire examined colon is normal. - Mild colonic spasm consistent with irritable bowel syndrome. - No specimens collected. Recommendation: - Discharge patient to home. - Resume previous diet. - Continue present medications. - Repeat colonoscopy in 5 years for screening purposes. - Return to GI office PRN. Procedure Code(s): --- Professional --- 92796, Colonoscopy, flexible; diagnostic, including collection of specimen(s) by brushing or washing, when performed (separate procedure) G0500, Moderate sedation services provided by the same physician or other qualified health clinical manager home care performing a gastrointestinal endoscopic service that sedation supports, requiring the presence of an independent trained observer to assist in the monitoring of the patient's level of consciousness and physiological status; initial 15 minutes of intra-service time; patient age 5 years or older (additional time may be reported with 59493, as appropriate) CPT copyright 2017 [employer]. All rights reserved. The codes documented in this report are preliminary and upon hose builder review may be revised to meet current compliance requirements. Edwardo Bender DO 03/02/2021 8:40:20 AM This report has been signed electronically. Number of Addenda: 1 Note Initiated On: 03/02/2021 8:03 AM Addendum Number: 1 Addendum Date: 12/06/2021 6:59:17 AM MAC was used instead of moderate sedation for the patient. Edwardo Bender DO 12/06/2021 6:59:22 AM This report has been signed electronically.
[2021-03-02 08:45] VITALS: BP 100/58; BP 125/74; PULSE 83; RESP 14; O2SAT 96
[2021-03-02 08:50] VITALS: BP 105/62; BP 125/74; PULSE 80; RESP 16; O2SAT 95
[2021-03-02 08:54] VITALS: BP 106/66; BP 125/74; PULSE 79; RESP 16; TEMP 36.3; O2SAT 96
[2021-03-02 09:26] VITALS: BP 125/74
== END 2021-03-02 09:35 ==
LOC: EN 07:06 → AC 07:08
PROVIDERS: Anesthesiology; PCP Family Medicine; Referring Provider Family Medicine; Visit Provider Internal Medicine Gastroenterology
PROC: 0DJD8ZZ Inspection of Lower Intestinal Tract, Via Natural or Artificial Opening Endoscopic (ICD-10-PCS; CPT 45378; principal; 2021-03-02 07:55)
DX: Z12.11 Encounter for screening for malignant neoplasm of colon (principal); E06.3 Autoimmune thyroiditis; E28.2 Polycystic ovarian syndrome; G47.30 Sleep apnea, unspecified; F32.A Depression, unspecified; F41.9 Anxiety disorder, unspecified; E66.9 Obesity, unspecified; Z68.35 Body mass index [BMI] 35.0-35.9, adult; Z79.890 Hormone replacement therapy; Z79.899 Other long term (current) drug therapy; Z80.0 Family history of malignant neoplasm of digestive organs; K21.9 Gastro-esophageal reflux disease without esophagitis
CPT/HCPCS: 45378; 81025; J7120; J2405

== ENCOUNTER 2021-04-04 12:52 | Outpatient (CLI) | payer OTHER, SELFPAY | END 2021-04-04 23:59 | disposition short-term general hospital (02) | LOC: LABSPEC 12:53 | PROVIDERS: PCP Family Medicine; Referring Provider Physician Assistant Surgical; Visit Provider Physician Assistant Surgical | DX: Z11.52 Encounter for screening for COVID-19 (principal) | CPT/HCPCS: 87635; U0003; U0005 ==

== ENCOUNTER 2021-04-14 10:39 | Outpatient (CLI) | payer SELFPAY | END 2021-04-14 23:59 | disposition short-term general hospital (02) | PROVIDERS: PCP Family Medicine; Referring Provider Physician Assistant Surgical; Visit Provider Physician Assistant Surgical | DX: Z11.52 Encounter for screening for COVID-19 (principal) | CPT/HCPCS: 87635; U0003; U0005 ==

== ENCOUNTER 2021-05-22 13:33 | Outpatient (CLI) | payer OTHER, SELFPAY ==
[2021-05-22 15:40] LABS: Internal QC Validated? YES +Cl - CLEAR BKGD; Pregnancy, Serum, hCG Quali. NEGATIVE Negative
[2021-05-22 18:13] LABS: Follicle Stimulating Hormone 22.2 mIU/mL; Free T3 2.7 pg/mL (2.18-3.98); Luteinizing Hormone 25.2 mIU/mL; Thyroid Stim Hormone (TSH) 0.32 uIU/mL (0.358-3.74)
== END 2021-05-22 23:59 | disposition home or self-care (01) ==
LOC: BIMLAB 13:34
PROVIDERS: PCP Family Medicine; Visit Provider Internal Medicine Endocrinology, Diabetes & Metabolism
DX: N91.2 Amenorrhea, unspecified (principal); E03.8 Other specified hypothyroidism; E06.3 Autoimmune thyroiditis
CPT/HCPCS: 36415; 83001; 83002; 84439; 84443; 84481; 84703

== ENCOUNTER 2021-08-24 09:54 | Outpatient (RCR) | payer OTHER, SELFPAY | END 2021-08-29 23:59 | LOC: NS 09:54 | PROVIDERS: PCP Family Medicine; Visit Provider Family Medicine | DX: E66.9 Obesity, unspecified (principal) | CPT/HCPCS: 97802 ==

== ENCOUNTER 2021-09-21 10:42 | Outpatient (RCR) | payer OTHER, SELFPAY | END 2021-09-28 23:59 | LOC: NS 10:42 | PROVIDERS: PCP Family Medicine; Visit Provider Family Medicine | DX: Z71.3 Dietary counseling and surveillance (principal); E66.9 Obesity, unspecified; Z68.34 Body mass index [BMI] 34.0-34.9, adult | CPT/HCPCS: 97803 ==

== ENCOUNTER 2021-10-05 08:49 | Outpatient (RCR) | payer OTHER, SELFPAY | END 2021-10-29 23:59 | LOC: NS 08:49 | PROVIDERS: PCP Family Medicine; Referring Provider Family Medicine; Visit Provider Family Medicine | DX: Z71.3 Dietary counseling and surveillance (principal); E66.9 Obesity, unspecified; Z68.33 Body mass index [BMI] 33.0-33.9, adult | CPT/HCPCS: 97803 ==

== ENCOUNTER → 2021-11-10 | Outpatient (CLI) | payer OTHER, SELFPAY ==
[2021-11-10 13:07] LABS: Bacteria 0 SEEN /hpf (None Seen); Mucous, Urine 0 SEEN /hpf (<or=2+); Squamous Epithelial Cells - UA 0 SEEN /hpf (5-10)
[2021-11-10 13:25] LABS: Color, Urine Straw (Yellow); Glucose, Dipstick Normal (Normal); Ketone-Dipstick Negative (Negative); Leukocyte Esterase-Dipstick 500 /ul (Negative); Nitrite-Dipstick Negative (Negative); Occult Blood-Urine 25 /ul (Negative); Protein-Dipstick Negative (Negative); Specific Gravity, Urine 1.005 (1.002-1.030); Urine Bilirubin Dipstick Negative (Negative); Urine Clarity Sl. Cloudy (Clear); Urine Urobilinogen Normal (Normal)
[2021-11-10 13:41] LABS: White Blood Cells 5-10 SEEN /hpf (0-5)
[2021-11-10 13:42] LABS: Red Blood Cells-Urine 5-10 SEEN /hpf (0-5)
== END | disposition home or self-care (01) ==
LOC: LABSPEC 12:08
PROVIDERS: PCP Family Medicine; Referring Provider Nurse Practitioner Family; Visit Provider Nurse Practitioner Family
DX: N39.0 Urinary tract infection, site not specified (principal)
CPT/HCPCS: 81001; 87086; 87088

== ENCOUNTER 2021-11-18 19:53 | Emergency (ER) | payer OTHER, SELFPAY ==
[2021-11-18 19:53] VITALS: BP 154/103; PULSE 140; RESP 19; TEMP 37.3; O2SAT 99; BMI 33.9
[2021-11-18 20:07] VITALS: BP 170/97; PULSE 121; RESP 15; TEMP 37.3; O2SAT 98
--- NOTE | 2021-11-18 20:10 | EKG12_ITS ---
Test Reason : PALPS Blood Pressure : / mmHG Vent. Rate : 127 BPM Atrial Rate : 127 BPM P-R Int : 134 ms QRS Dur : 084 ms QT Int : 296 ms P-R-T Axes : 042 055 004 degrees QTc Int : 430 ms Sinus tachycardia Abnormal ECG Confirmed by BIRDIE MONTEZ, NELY ([id number]), editor city CHRISTI GUY ([id number]) on 11/21/2021 12:46:40 PM Referred By: NELIDA Confirmed By:NELY PACKER MD
[2021-11-18 20:11] VITALS: BP 170/97; PULSE 120; RESP 19; O2SAT 97
--- NOTE | 2021-11-18 20:15 | EDS_ITS ---
HPI History of Present Illness Chief Complaint: Palpitations Informant: patient Onset/Context/Timing Onset: Today Current Severity: Mild Maximum Severity: Mild Worsened By: Nothing Relieved By: Nothing Associated Symptoms: Positive for Palpitations; Negative for Nausea, Vomiting, Diaphoresis, Dyspnea, Cough, Fever, Lightheadedness or Acid Reflux Narrative Narrative: 51-year-old female who has a history of anxiety and PCOS. Said her had symptoms tested positive for COVID she did and tested positive -5. Says she has been anxious from that and cause her palpitations. Denies any chest pain. She also has a history of thyroid disease but states that she has been taking her medications. Denies any hemoptysis. No leg pain or swelling. Denies any chest pain or shortness of breath. Prior Similar Symptoms: Yes Recent Illness/Hospitalization: No CVD Risk Factors: Negative for Hypertension or Diabetes PE Risk Factors: Negative for Recent Travel/Surgery, Recent Immobilization, Prior DVT or PE, Cancer or OCP + Smoking + >/=35 TAD Risk Factors: Negative for Marfan's Syndrome [facility] Medical History Anxiety Cholecystectomy planned CPAP (continuous positive airway pressure) dependence Depression Fibroids Gallstones Gastric reflux GERD (gastroesophageal reflux disease) Headache History of Holter monitoring Hypothyroid 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 Non-smoker Obesity PCOS (polycystic ovarian syndrome) PCOS (polycystic ovarian syndrome) Sleep apnea Thyroid disease Tonsillectomy planned Home Medications bupropion HCl 300 mg 24 hr tablet, extended release 300 mg PO QAM 02/24/19 [History Last Taken Unknown] lorazepam 1 mg tablet (Ativan) 1 mg PO DAILY PRN Anxiety 02/24/19 [History Last Taken Unknown] pantoprazole 40 mg granules delayed-release for susp in packet (Protonix) 40 mg PO QHS 02/24/19 [History Last Taken Unknown] sertraline 100 mg tablet (Zoloft) 150 mg PO DAILY 02/24/19 [History Last Taken 03/02/21 05:45] Bacillus coagulans 800 million cell tablet (Digestive Advantage Probiotics- Prebiotic) 1 cell PO DAILY 02/02/21 [History Last Taken Unknown] cholecalciferol (vitamin D3) 50 mcg (2,000 unit) capsule 50 mcg PO DAILY 02/02/21 [History Last Taken Unknown] ferrous sulfate 325 mg (65 mg iron) tablet 325 mg PO DAILY 02/02/21 [History Last Taken Unknown] levothyroxine 137 mcg tablet 137 mcg PO DAILY #90 tabs 02/02/21 [Rx Last Taken 03/02/21 05:45] liothyronine 5 mcg tablet 15 mcg PO DAILY 02/02/21 [History Last Taken Unknown] multivitamin 1 tab PO DAILY 02/27/21 [History Last Taken Unknown] semaglutide 1 mg/dose (4 mg/3 mL) subcutaneous pen injector (Ozempic) 1 mg (0.75 mL) subcut SA #3 mL 11/09/21 [Rx Last Taken Unknown] nitrofurantoin macrocrystal 100 mg capsule 100 mg PO BID 10 days #20 caps 11/10/21 [Rx Last Taken Unknown] Allergy/AdvReac Type Severity Reaction Status Date / Time No Known Allergies Allergy Verified 11/18/21 19:56 Family History Father Heart disease Grandmother Breast cancer Colon cancer Aunt Colon cancer Mother COPD (chronic obstructive pulmonary disease) Other Anxiety Cancer Depression High cholesterol Myocardial infarction Suicide Thyroid disorder Surgical History H/O sinus surgery Hernia History of cholecystectomy History of hernia surgery History of tonsillectomy Social History number of children: 3 current occupational status: employed current occupation: [employer] Smoking Status: Never smoker alcohol intake: never substance use type: does not use what type of physical activity do you participate in: walking frequency: 3-4 times per week seatbelt use: always do you feel safe at home: Yes 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 COVID symptoms with a cough. Review of Systems ROS Unobtainable: Denies due to encephalopathy Constitutional Constitutional ED: Denies chills or fever(s) Eyes Eyes: Reports none Cardiovascular Cardiovascular: Reports as per HPI, palpitations and racing heartbeat; Denies chest pain Respiratory/Chest Respiratory/Chest: Denies cough or dyspnea Gastrointestinal Gastrointestinal: Denies abdominal pain, constipation, diarrhea or melena Genitourinary Genitourinary ED: Denies dysuria or hematuria Musculoskeletal Musculoskeletal: Denies arthralgias Integumentary Denies abscess Neurologic Neurologic: Denies headache(s) Psychiatric Psychiatric: Denies anxiety Endocrine Endocrinology: Denies cold intolerance Hematologic/Lymphatic Hematologic/Lymphatic: Denies easy bleeding Allergic/Immunologic Allergic/Immunologic ED: Denies mouth swelling EXAM Physical Exam Narrative Exam Narrative: 51-year-old vital signs are stable she is tachycardic around 1 30-1 40. No distress. Anxious. Pulse ox 90% on room air no signs hypoxia. H EENT exam unremarkable. Neck nontender no lymphadenopathy. Lungs clear to auscultation. Heart tachycardic no murmur. Abdomen soft nontender. Moving all 4 extremities. Calves nontender without edema or cords. Neurologically she is awake and alert. Const Vital Signs: 11/18/21 19:53 11/18/21 20:07 11/18/21 20:11 Temperature 99.1 F Temperature Source Temporal Pulse Rate 140 H 120 H Respiratory Rate 19 H 19 H Respiratory Pattern Normal Blood Pressure 154/103 H 170/97 H Blood Pressure Mean 120 121 Pulse Ox 99 97 Oxygen Delivery Method Room Air Room Air 11/18/21 20:12 11/18/21 20:07 11/18/21 22:06 Temperature 99.1 F Temperature Source Temporal Pulse Rate 121 H 116 H Respiratory Rate 15 17 Respiratory Pattern Blood Pressure 170/97 H 159/113 H Blood Pressure Mean 121 128 Pulse Ox 98 98 Oxygen Delivery Method Room Air Room Air Room Air Positive well nourished, well developed and obese; Negative for cachectic, contractures or unkempt General Appearance ED: well developed and NAD; Negative for unkempt, cachectic, contractures or pallor Nutritional Appearance: obese; Negative for cachectic HEENT Reports moist mucous membranes normocephalic and atraumatic; Negative for trauma or tenderness Eyes PERRL and EOMs intact bilaterally General Eye ED: Negative for pale conjunctiva or scleral icterus Neck no lymphadenopathy, supple and no JVD General: Negative for tenderness Chest Wall inspection of chest normal and palpation of chest normal Chest: Negative for tenderness or other Resp normal respiratory effort and clear to auscultation bilaterally Effort and Inspection: Negative for respiratory distress Auscultation: Negative for rales, rhonchi or wheezes Cardio regular rhythm, S1 normal heart sound, S2 normal heart sound and no murmurs; Negative for regular rate Rate: tachycardic GI normal to inspection, nondistended, normoactive bowel sounds, soft to palpation, non-tender, non-distended and no masses Back/Spine no CVA tenderness and no thoracic nor lumbar tenderness General Back: Negative for CVA tenderness Cervical Spine: Negative for cervical spine tenderness Extremity normal to inspection General Extremety ED: Negative for edema or pulses abnormal General Extremity: Negative for edema or pulses abnormal Neuro oriented x3 and CN's II-XII intact bilaterally Sensorium / Orientation: awake, alert, oriented to person, oriented to place and oriented to time; Negative for confused, lethargic or stuporous Motor Exam: strength 5/5 throughout Psych mental status grossly normal Appearance: Negative for unkempt Attitude: No agitated Mood & Affect: Negative for depressed, anxious or tearful Skin no rashes or lesions noted and no wounds General Skin Exam: Negative for jaundice or pallor Rashes: No rashes noted Trauma: Negative for abrasion or laceration MDM MDM MDM Narrative Medical decision making narrative: 51-year-old with tachycardia. Exam benign. Undergo cardiac work-up with TSH because she had history of thyroid disease. Repeat exam patient is doing well. Heart rates around 106. Otherwise exam unchanged. We went over her test results. She will be discharged home. Fluids and rest. Tylenol Motrin. Return if worse. Lab Data Attestation: I reviewed the patient's lab results. Lab results narrative: CBC normal. White count 9. H&H 13 and 39. Platelets 284. Electrolytes normal gap is 7 BUN and creatinine are 20 and 0.79. Glucose 116. Troponin 4. TSH is low at 0.33 she has a history of hypothyroidism. Labs: Laboratory Results - last 24 hr 11/18/21 11/18/21 20:15 20:15 WBC 9.8 RBC 4.62 Hgb 13.3 Hct 39.8 MCV 86.1 MCH 28.8 MCHC 33.4 RDW Std Deviation 39.4 RDW Coeff of Taj 12.6 Plt Count 284 MPV 9.7 Immature Gran % (Auto) 0.300 Neut % (Auto) 79.2 H Lymph % (Auto) 12.0 L Wirt % (Auto) 6.6 Eos % (Auto) 1.3 Baso % (Auto) 0.6 Absolute Neuts (auto) 7.7 Absolute Lymphs (auto) 1.17 Nucleated RBC % 0 Sodium 138 Potassium 4.0 Chloride 106 Carbon Dioxide 25.0 Anion Gap 7 BUN 20 H Creatinine 0.79 Estim Creat Clear Calc 80.64 Est GFR (MDRD) Af Amer 100 Est GFR (MDRD) Non-Af 83 BUN/Creatinine Ratio 25.4 H Glucose 116 H Calcium 9.5 Troponin I High Sens 4 TSH 0.33 L Radiography Chest X-Ray - ED: 1 View, Read by ED Physician, Heart, Lungs, Mediastinum, Bony Structures, No Acute Disease and Chronic Changes Diagnostic Testing: Clinical Impression(s) from Imaging Studies Chest X-Ray 11/18/21 20:18 IMPRESSION: There are no acute findings. Electronically Signed: Mt Smith MD at 20:31 EDT Reading Location ID and State: [facility] / [place] , Service support , Chest x-ray, portable, single view shows no acute abnormality. Normal cardiac silhouette mediastinum. No infiltrate. Interpreted both by myself and the radiologist. Rhythm Strip Rhythm Strip: Sinus Tach Rate: 127 Ectopy: None EKG Initial EKG: Attestation: I personally reviewed and interpreted this EKG as follows: Interpretation: Sinus Rhythm and No Acute Injury Pattern Comments: Sinus tachycardia rate of 127 no acute signs of MT or ischemia. Inverted T waves in lead III. No ST elevation. Discharge Plan Triage Chief Complaint: Palpitations ED Provider: Dylan Mcgee Dx/Rx/DC Orders Clinical Impression: COVID-19, Tachycardia Instructions: Human Coronaviruses Prescriptions: No Action sertraline [Zoloft] 100 mg tablet 150 mg PO DAILY bupropion HCl 300 mg tablet extended release 24 hr 300 mg PO QAM Protonix [address] for susp in packet 40 mg PO QHS lorazepam [Ativan] 1 mg tablet 1 mg PO DAILY PRN (Reason: Anxiety) liothyronine 5 mcg tablet 15 mcg PO DAILY Rx Instructions: 3 pills one time a week ferrous sulfate 325 mg (65 mg iron) tablet 325 mg PO DAILY cholecalciferol (vitamin D3) 50 mcg (2,000 unit) capsule 50 mcg PO DAILY Digestive Advantage Probio-Pre 800 million cell tablet 1 cell PO DAILY levothyroxine 137 mcg tablet 137 mcg PO DAILY Qty: 90 3RF nitrofurantoin macrocrystal 100 mg capsule 100 mg PO BID 10 Days Qty: 20 0RF Rx Instructions: must administer with a meal/food multivitamin [Multi-Day] Tablet 1 tab PO DAILY Ozempic 1 mg/dose (4 mg/3 mL) pen injector 1 mg subcut SA Qty: 3 3RF Primary Care Provider: Sonal Botello Referrals: Sonal Botello DO [Primary Care Provider] - 3-5 Days if not improving Activity Restrictions/Additional Instructions: Plenty of fluids and rest. Motrin and Tylenol for fever. Return if feeling a lot worse or follow-up with your doctor if not improving. Disposition Disposition: Home, Self Care
--- NOTE | 2021-11-18 20:18 | RAD_ITS ---
STUDY: X-RAY CHEST REASON FOR EXAM: Female, 51 years old. CHEST PAIN chest pain TECHNIQUE: XR Chest 1 View COMPARISON: None FINDINGS: There is no demonstrated pleural abnormality. Normal size heart. Normal mediastinum and abner. Normal visualized pulmonary arteries. Normal visualized aortic arch and descending thoracic aorta. Normal visualized thoracic spine. Normal visualized ribs, clavicles, and shoulders. There is no demonstrated abnormality of the visualized soft tissue structures of the upper abdomen. RAD/Chest 1 View (Portable) IMPRESSION: There are no acute findings. Electronically Signed: Mt Smith MD at 20:31 EDT ,
[2021-11-18] MEDS: LORazepam 2 MG/ML Syringe 1 MG IV (20:24)
[2021-11-18 20:56] LABS: Absolute Lymphocyte Count 1.17 X10^3/uL (0.83-4.51); Absolute Neutrophil Count 7.7 X10^3/uL (2.0-7.7); Basophil# 0.06 X10^3/uL; Basophil% 0.6 % (0-1); Eosinophil# 0.13 X10^3/uL; Eosinophils% 1.3 % (0-5); Hematocrit 39.8 % (37-47); Hemoglobin 13.3 g/dL (12.0-15.0); Lymphocyte # 1.17 X10^3/ul (0.83-4.51); Mean Corp Hgb Conc 33.4 g/dL (32-36); Mean Corpuscular Hgb 28.8 pg (27.0-32.0); Mean Corpuscular Volume 86.1 fL (81-99); Mean Platelet Vol. 9.7 fl (6.2-12.0); Monocyte# 0.64 X10^3/uL; Monocyte% 6.6 % (0-10); NRBC Flagged by Analyzer 0 % (0-5); Neutrophil # 7.74 X10^3/uL (2.7-7.7); Neutrophil % 79.2 % (47-70); Platelet Count 284 K/mm3 (150-450); RBC Distribution Width CV 12.6 % (11.6-14.6); RBC Distribution Width SD 39.4 fl (35.1-43.9); Red Blood Count 4.62 M/mm3 (4.2-5.4); White Blood Count 9.8 K/mm3 (4.4-11.0)
[2021-11-18 21:20] LABS: Anion Gap 7 (5-15); BUN 20 mg/dL (7-18); BUN/Creat Ratio 25.4 RATIO (10-20); Calcium,Total 9.5 mg/dL (8.5-10.1); Chloride 106 mmol/L (98-107); Creatinine, Serum 0.79 mg/dL (0.55-1.02); EST Glomerular Filtration Rate 83 mL/min (>60); Est Glom Filt Rate - Afr Amer 100 mL/min (>60); Estimated Creatinine Clearance 80.64 ml/min; Glucose 116 mg/dL (74-106); Sodium Level 138 mmol/L (136-145); Thyroid Stim Hormone (TSH) 0.33 uIU/mL (0.358-3.74); Troponin-I HS (w/2H Reflex) 4 pg/mL (3.0-54.0)
[2021-11-18] MEDS: Acetaminophen 500 MG Tablet 1000 MG PO (21:55)
[2021-11-18] MEDS: 0.9% Normal Saline 1,000 ML 500 ML IV (22:03)
[2021-11-18 22:06] VITALS: BP 159/113; PULSE 116; RESP 17; O2SAT 98
[2021-11-18 22:22] LABS: Reflex Troponin-HS? (from REC) Y
[2021-11-18 22:41] VITALS: BP 133/76; PULSE 102; RESP 14; O2SAT 96
== END 2021-11-18 22:47 | disposition home or self-care (01) ==
PROVIDERS: Emergency Provider Emergency Medicine; PCP Family Medicine; Visit Provider Emergency Medicine
DX: U07.1 COVID-19 (principal); F41.9 Anxiety disorder, unspecified; R00.0 Tachycardia, unspecified; E06.3 Autoimmune thyroiditis; F32.A Depression, unspecified; G47.30 Sleep apnea, unspecified; E66.9 Obesity, unspecified; Z79.890 Hormone replacement therapy; Z79.899 Other long term (current) drug therapy
CPT/HCPCS: 71045; 80048; 84443; 84484; 85025; 93005; 96361; 96374; 99283; J7030; A4216

== ENCOUNTER → 2021-12-01 | Outpatient (CLI) | payer OTHER, SELFPAY ==
[2021-12-01 12:07] LABS: Vitamin B12 947 pg/mL (211-911)
[2021-12-01 13:40] LABS: Cholesterol 155 mg/dL (200); High Density Lipoprotein 39 mg/dL; Triglycerides 138 mg/dL; Very Low Density Lipoprotein 28 mg/dL (5-40)
== END | disposition home or self-care (01) ==
LOC: LAB 10:21
PROVIDERS: PCP Family Medicine; Referring Provider Family Medicine; Visit Provider Family Medicine
DX: Z00.00 Encounter for general adult medical examination without abnormal findings (principal); R20.2 Paresthesia of skin
CPT/HCPCS: 36415; 80061; 82607; 82746

== ENCOUNTER → 2022-01-02 | Outpatient (CLI) | payer OTHER, SELFPAY ==
--- NOTE | 2022-01-02 12:50 | US_ITS ---
STUDY: ULTRASOUND OF THE FEMALE PELVIS - COMPLETE REASON FOR EXAM: Female, 51 years old. Pelvic pain and fullness LMP: 12/12/2021 TECHNIQUE: Transabdominal and Transvaginal TECHNICAL QUALITY: Adequate. COMPARISON: 2018 FINDINGS: The uterus is anteverted and is in a midline position. The uterus measures 9.4 x 6.2 x 4.7 cm. Normal uterine cervix. The endometrium measures 9 mm in thickness, and is hyperechoic. There is no demonstrated endometrial mass. 2 separate fibroids, larger measures 1.6 cm. I.U.D. - The patient does not have an I.U.D. The right ovary is visualized. The right ovary measures 3.1 x 2.5 x 1.6 cm. There is no right ovarian cyst or ovarian mass. There is no visualized right adnexal mass or complex lesion. There is normal arterial and normal venous vascularity. The left ovary is visualized. The left ovary measures 3.3 x 3.3 x 1.9 cm. There is no left ovarian cyst or ovarian mass. There is no visualized left adnexal mass or complex lesion. There is normal arterial and normal venous vascularity. There is no fluid in the cul-de-sac. The bladder is sonographically normal US/Transvaginal Non- IMPRESSION: Small uterine fibroids, sonographically normal endometrium Sonographically normal ovaries and bladder, no free fluid Electronically Signed: Vinay Murray MD at 15:01 EDT ,
--- NOTE | 2022-01-02 12:50 | US_ITS ---
STUDY: ULTRASOUND OF THE FEMALE PELVIS - COMPLETE REASON FOR EXAM: Female, 51 years old. Pelvic pain and fullness LMP: 12/12/2021 TECHNIQUE: Transabdominal and Transvaginal TECHNICAL QUALITY: Adequate. COMPARISON: 2018 FINDINGS: The uterus is anteverted and is in a midline position. The uterus measures 9.4 x 6.2 x 4.7 cm. Normal uterine cervix. The endometrium measures 9 mm in thickness, and is hyperechoic. There is no demonstrated endometrial mass. 2 separate fibroids, larger measures 1.6 cm. I.U.D. - The patient does not have an I.U.D. The right ovary is visualized. The right ovary measures 3.1 x 2.5 x 1.6 cm. There is no right ovarian cyst or ovarian mass. There is no visualized right adnexal mass or complex lesion. There is normal arterial and normal venous vascularity. The left ovary is visualized. The left ovary measures 3.3 x 3.3 x 1.9 cm. There is no left ovarian cyst or ovarian mass. There is no visualized left adnexal mass or complex lesion. There is normal arterial and normal venous vascularity. There is no fluid in the cul-de-sac. The bladder is sonographically normal US/Pelvic (Non ) IMPRESSION: Small uterine fibroids, sonographically normal endometrium Sonographically normal ovaries and bladder, no free fluid Electronically Signed: Vinay Murray MD at 15:01 EDT ,
== END | disposition home or self-care (01) ==
PROVIDERS: PCP Family Medicine; Visit Provider Obstetrics & Gynecology
DX: D25.9 Leiomyoma of uterus, unspecified (principal)
CPT/HCPCS: 76830; 76856

== ENCOUNTER → 2022-02-07 | Outpatient (CLI) | payer OTHER, SELFPAY ==
--- NOTE | 2022-02-07 12:00 | EMB_PTH ---
PATIENT: NICKIE PEREA LOC: [facility] U#:[id number] AGE/SX: 51/F ROOM: RE02/07/[address]: Dr. Martina Eason DO : 1970 BED: DIS: 02/07/2022 SPEC #: [id number] RECD: 02/07/22 14:50 STATUS: NAOMIE REJavier #: [id number] PATRICIA: 02/07/22 12:[address]: Martina Eason DEPT: SURGICAL PATHOLOGY RECD BY: Sheri Whitmore ENTERED: 02/08/22 09:42 SP TYPE: ENDOM BX/C ML DR: Dr. Sonal Botello DO Tissues: Endometrium, NOS Procedures: Surgery Specimen Level IV HEADER OPERATION: Endometrial biopsy PRE-OP DIAGNOSIS: Menorrhagia TISSUE SUBMITTED: Endometrial lining MICROSCOPIC DIAGNOSIS Endometrial biopsy: Scant strips of benign endometrial epithelium. See comment. SHARATH:irvin 02/09/2022 COMMENT Only a scant amount of tissue is noted. Correlation with clinical findings and appropriate follow up are necessary. MICROSCOPIC DESCRIPTION Slides are reviewed. GROSS DESCRIPTION Received is one container labeled with the patient's name and not further designated. The specimen consists of scant fragment of mucoid tissue measuring 0.5 x 0.1 x 0.1 cm. The specimen is totally submitted in one cassette. / SHARATH:irvin 02/08/2022 TC: Cannot code CPT: 83071
== END | disposition home or self-care (01) ==
LOC: LABSPEC 15:10
PROVIDERS: PCP Family Medicine; Visit Provider Obstetrics & Gynecology
DX: N92.6 Irregular menstruation, unspecified (principal)
CPT/HCPCS: 88305

== ENCOUNTER → 2022-02-09 | Outpatient (CLI) | payer OTHER, SELFPAY ==
--- NOTE | 2022-02-09 10:57 | BI_ITS ---
MAMMOGRAPHY - BILATERAL SCREENING REASON FOR EXAM: Female, 51 years old. Routine annual screening examination. PERTINENT HISTORY: Grandmother with breast cancer. TECHNIQUE: Digital bilateral breast matias (3D mammographic acquisition) in the CC and MLO projections. 2-D mediolateral oblique (MLO) and craniocaudad (CC) views of both breasts were obtained. CAD: Full Field Digital Mammography with Computer Added Detection was performed. COMPARISON: Comparison is made with prior study 01/27/2021 and 03/18/2020. FINDINGS: Breast Composition: There are scattered areas of fibroglandular density. There are no dominant masses or suspicious calcifications. No other significant abnormalities are identified. There has been no significant change since the prior study. BI/SCRN MAMM (CAD)W/MATIAS BILAT IMPRESSION: Stable bilateral screening mammogram. Yearly follow-up mammogram recommended. (A) ASSESSMENT CATEGORY: BIRADS Category 1: Negative. A letter regarding these results will be sent to the patient by the facility within 30 days. Approximately 10% of breast cancers are not detected by mammography. A normal mammogram should not delay biopsy of a clinically suspicious abnormality. [id number] Electronically Signed: Kings Bassett MD at 11:57 EST ,
== END | disposition home or self-care (01) ==
LOC: OPBI 10:56
PROVIDERS: PCP Family Medicine; Visit Provider Obstetrics & Gynecology
DX: Z12.31 Encounter for screening mammogram for malignant neoplasm of breast (principal)
CPT/HCPCS: 77063; 77067

== ENCOUNTER → 2022-07-13 | Outpatient (CLI) | payer OTHER, SELFPAY ==
[2022-07-13 12:01] LABS: T4 Free Direct 0.76 ng/dL (0.76-1.46); Thyroid Stim Hormone (TSH) 0.45 uIU/mL (0.358-3.74)
== END | disposition home or self-care (01) ==
LOC: LAB 10:50
PROVIDERS: PCP Family Medicine; Referring Provider Internal Medicine Endocrinology, Diabetes & Metabolism; Visit Provider Internal Medicine Endocrinology, Diabetes & Metabolism
DX: E03.8 Other specified hypothyroidism (principal); E06.3 Autoimmune thyroiditis; E28.2 Polycystic ovarian syndrome; E66.9 Obesity, unspecified
CPT/HCPCS: 36415; 84439; 84443; 84481

== ENCOUNTER → 2022-12-05 | Outpatient (CLI) | payer OTHER, SELFPAY ==
[2022-12-05 12:20] LABS: Absolute Lymphocyte Count 1.93 X10^3/uL (0.83-4.51); Absolute Neutrophil Count 4.7 X10^3/uL (2.0-7.7); Basophil# 0.05 X10^3/uL; Basophil% 0.7 % (0-1); Eosinophil# 0.21 X10^3/uL; Eosinophils% 2.8 % (0-5); Hemoglobin 12.9 g/dL (12.0-15.0); Lymphocyte # 1.93 X10^3/ul (0.83-4.51); Lymphocyte % 26.1 % (19-41); Mean Corp Hgb Conc 32.3 g/dL (32-36); Mean Corpuscular Hgb 27.9 pg (27.0-32.0); Mean Corpuscular Volume 86.6 fL (81-99); Mean Platelet Vol. 10.1 fl (6.2-12.0); Monocyte% 6.8 % (0-10); NRBC Flagged by Analyzer 0 % (0-5); Neutrophil # 4.68 X10^3/uL (2.7-7.7); Neutrophil % 63.3 % (47-70); Platelet Count 288 K/mm3 (150-450); RBC Distribution Width CV 12.9 % (11.6-14.6); RBC Distribution Width SD 40.4 fl (35.1-43.9); Red Blood Count 4.62 M/mm3 (4.2-5.4); White Blood Count 7.4 K/mm3 (4.4-11.0)
[2022-12-05 12:59] LABS: ALB/GLOB Ratio 1.1 RATIO (0.9-2.4); AST(SGOT) 20 U/L (15-37); Alanine Aminotransfer ALT/SGPT 34 U/L (13-56); Alkaline Phosphatase 77 U/L (45-117); Anion Gap 5 (5-15); BUN 22 mg/dL (7-18); BUN/Creat Ratio 26.3 RATIO (10-20); Calcium,Total 8.9 mg/dL (8.5-10.1); Chloride 105 mmol/L (98-107); Cholesterol 170 mg/dL (200); Creatinine, Serum 0.84 mg/dL (0.55-1.02); EST Glomerular Filtration Rate 77 mL/min (>60); Est Glom Filt Rate - Afr Amer 93 mL/min (>60); Globulin 3.7 g/dL (2.2-4.2); Glucose 84 mg/dL (74-106); High Density Lipoprotein 37 mg/dL; Potassium 4.1 mmol/L (3.5-5.1); Protein, Total 7.7 g/dL (6.4-8.2); Sodium Level 137 mmol/L (136-145); Triglycerides 200 mg/dL; Very Low Density Lipoprotein 40 mg/dL (5-40)
== END | disposition home or self-care (01) ==
LOC: BFHLAB 10:05
PROVIDERS: PCP Family Medicine; Referring Provider Family Medicine; Visit Provider Family Medicine
DX: Z00.00 Encounter for general adult medical examination without abnormal findings (principal); Z51.81 Encounter for therapeutic drug level monitoring
CPT/HCPCS: 36415; 80053; 80061; 85025

== ENCOUNTER → 2023-02-13 | Outpatient (CLI) | payer OTHER, SELFPAY ==
--- NOTE | 2023-02-13 11:53 | BI_ITS ---
MAMMOGRAPHY - BILATERAL SCREENING REASON FOR EXAM: Female, 52 years old. Routine annual screening examination. PERTINENT HISTORY: Grandmother with breast cancer. TECHNIQUE: Digital bilateral breast matias (3D mammographic acquisition) in the CC and MLO projections. 2-D mediolateral oblique (MLO) and craniocaudad (CC) views of both breasts were obtained. CAD: Full Field Digital Mammography with Computer Added Detection was performed. COMPARISON: Comparison is made with prior study dated February 09, 2022 and January 27, 2021. FINDINGS: Breast Composition: There are scattered areas of fibroglandular density. There are no dominant masses or suspicious calcifications. No other significant abnormalities are identified. There has been no significant change since the prior study. BI/SCRN MAMM (CAD)W/MATIAS BILAT IMPRESSION: Stable bilateral screening mammogram. Yearly follow-up mammogram recommended. (A) ASSESSMENT CATEGORY: BIRADS Category 1: Negative. A letter regarding these results will be sent to the patient by the facility within 30 days. Approximately 10% of breast cancers are not detected by mammography. A normal mammogram should not delay biopsy of a clinically suspicious abnormality. [id number] Electronically Signed: Kings Bassett MD at 12:38 EST ,
== END | disposition home or self-care (01) ==
LOC: OPBI 11:52
PROVIDERS: PCP Family Medicine; Referring Provider Obstetrics & Gynecology; Visit Provider Obstetrics & Gynecology
DX: Z12.31 Encounter for screening mammogram for malignant neoplasm of breast (principal)
CPT/HCPCS: 77063; 77067

== ENCOUNTER → 2023-03-06 | Outpatient (CLI) | payer SELFPAY ==
--- NOTE | 2023-03-06 07:19 | CT_ITS ---
STUDY: CT CHEST WITHOUT CONTRAST REASON FOR EXAM: Female, 52 years old. Family history of ischemic heart disease and other diseases of th RADIATION DOSAGE (If Supplied By Facility): CTDIvol = ( 12.19 ) mGy, DLP = ( 195.04 ) mGycm TECHNIQUE: Transaxial imaging was performed without the administration of intravenous contrast material. Cardiac over read examination. Individualized dose optimization techniques were used for this CT. COMPARISON: No relevant priors. FINDINGS: CHEST The lungs are normal. There is no demonstrated pleural abnormality. Mild degree of the coronary artery calcification. Normal mediastinum. Normal hilar regions. Normal unenhanced pulmonary arteries. Normal aorta arch and descending thoracic aorta. Normal osseous structures. Small hiatal hernia. CT/Limited Chest CT Cardiac Only IMPRESSION: Mild degree of coronary artery calcification. Electronically Signed: Kings Bassett MD at 14:58 EST ,
[2023-03-06 09:04] LABS: Free T3 2.2 pg/mL (2.18-3.98); T4 Free Direct 0.68 ng/dL (0.76-1.46); Thyroid Stim Hormone (TSH) 3.09 uIU/mL (0.358-3.74)
--- NOTE | 2023-03-06 09:44 | CA.SCORE ---
Calcium Scoring Date of Study:: 03/06/23 Indications Indications: FH Coronary Calcium Scoring: High-resolution Computed Tomographic imaging of the chest was performed on [03/06/23 ], with particular attention paid to the coronary arteries. Images from the examination were analyzed for the presence and extent of coronary artery calcification , using coronary calcium quantification software. The patient tolerated the procedure well and there were no complications. The results of the coronary calcification analysis are provided below. Findings Coronary Artery Left Main (LM): 0 Left Anterior Descending (LAD): 0 Left Circumflex (LCX): 0 Right Coronary Artery (RCA): 0 Total Agatston Score: 0 Percentile Rankin% Calcium Scoring Interpretation: Different methods to categorize the overall amount of coronary plaque. Overall amount CAC SIS Visual of coronary plaque P1 Mild -100 <2 1-2 vessels with mild amount of plaque P2 Moderate 101-300 3-4 1-2 vessels with moderate amount, 3 vessels with mild amount of plaque P3 Severe 301-999 5-7 3 vessels with moderate amount, 1 vessel with severe amount of plaque P4 Extensive >1000 >8 2-3 vessels with severe amount of plaque Conclusion: No atherosclerotic plaque noted.
== END | disposition home or self-care (01) ==
PROVIDERS: Internal Medicine Endocrinology, Diabetes & Metabolism; PCP Family Medicine; Referring Provider Family Medicine; Visit Provider Family Medicine
DX: E03.8 Other specified hypothyroidism (principal); Z82.49 Family history of ischemic heart disease and other diseases of the circulatory system; E06.3 Autoimmune thyroiditis; E28.2 Polycystic ovarian syndrome; E66.9 Obesity, unspecified
CPT/HCPCS: 36415; 75571; 76380; 84439; 84443; 84481

== ENCOUNTER → 2023-07-16 | Outpatient (CLI) | payer OTHER, SELFPAY ==
[2023-07-18 16:10] LABS: HPV APTIMA, High Risk Negative (Negative)
== END | disposition home or self-care (01) ==
PROVIDERS: PCP Family Medicine; Visit Provider Obstetrics & Gynecology
DX: Z12.4 Encounter for screening for malignant neoplasm of cervix (principal)
CPT/HCPCS: 87624; 88175; G0145

== ENCOUNTER → 2024-01-24 | Outpatient (CLI) | payer OTHER, SELFPAY ==
[2024-01-24 11:08] LABS: Free T3 2.7 pg/mL (2.18-3.98); T4 Free Direct 0.71 ng/dL (0.76-1.46)
== END | disposition home or self-care (01) ==
PROVIDERS: PCP Family Medicine; Referring Provider Internal Medicine Endocrinology, Diabetes & Metabolism; Visit Provider Internal Medicine Endocrinology, Diabetes & Metabolism
DX: E03.8 Other specified hypothyroidism (principal); E06.3 Autoimmune thyroiditis; E28.2 Polycystic ovarian syndrome; E66.09 Other obesity due to excess calories; Z68.33 Body mass index [BMI] 33.0-33.9, adult
CPT/HCPCS: 84439; 84443; 84481

== ENCOUNTER → 2024-01-29 | Outpatient (CLI) | payer OTHER, SELFPAY ==
[2024-01-29 10:29] LABS: Absolute Neutrophil Count 3.4 X10^3/uL (2.0-7.7); Basophil# 0.05 X10^3/uL; Basophil% 0.7 % (0-1); Eosinophil# 0.23 X10^3/uL; Eosinophils% 3.4 % (0-5); Hematocrit 39.5 % (37-47); Hemoglobin 12.6 g/dL (12.0-15.0); Lymphocyte % 35.6 % (19-41); Mean Corp Hgb Conc 31.9 g/dL (32-36); Mean Corpuscular Hgb 27.4 pg (27.0-32.0); Mean Corpuscular Volume 85.9 fL (81-99); Mean Platelet Vol. 9.6 fl (6.2-12.0); Monocyte# 0.55 X10^3/uL; Monocyte% 8.2 % (0-10); NRBC Flagged by Analyzer 0 % (0-5); Neutrophil # 3.42 X10^3/uL (2.7-7.7); Neutrophil % 50.8 % (47-70); Platelet Count 244 K/mm3 (150-450); RBC Distribution Width CV 12.7 % (11.6-14.6); RBC Distribution Width SD 39.5 fl (35.1-43.9); White Blood Count 6.7 K/mm3 (4.4-11.0)
[2024-01-29 11:00] LABS: ALB/GLOB Ratio 1.1 RATIO (0.9-2.4); AST(SGOT) 20 U/L (15-37); Alanine Aminotransfer ALT/SGPT 44 U/L (13-56); Alkaline Phosphatase 77 U/L (45-117); Anion Gap 3 (5-15); BUN 26 mg/dL (7-18); BUN/Creat Ratio 31.8 RATIO (10-20); Chloride 106 mmol/L (98-107); Cholesterol 184 mg/dL (200); Creatinine, Serum 0.82 mg/dL (0.55-1.02); EST Glomerular Filtration Rate 78 mL/min (>60); Est Glom Filt Rate - Afr Amer 95 mL/min (>60); Globulin 3.6 g/dL (2.2-4.2); Glucose 88 mg/dL (74-106); High Density Lipoprotein 42 mg/dL; Potassium 4.4 mmol/L (3.5-5.1); Protein, Total 7.6 g/dL (6.4-8.2); Sodium Level 138 mmol/L (136-145); Triglycerides 266 mg/dL; Very Low Density Lipoprotein 53 mg/dL (5-40)
== END | disposition home or self-care (01) ==
LOC: LAB 09:59
PROVIDERS: PCP Family Medicine; Referring Provider Family Medicine; Visit Provider Family Medicine
DX: Z51.81 Encounter for therapeutic drug level monitoring (principal); E78.5 Hyperlipidemia, unspecified; R03.0 Elevated blood-pressure reading, without diagnosis of hypertension
CPT/HCPCS: 36415; 80053; 80061; 85025

== ENCOUNTER → 2024-02-19 | Outpatient (CLI) | payer OTHER, SELFPAY | END | disposition home or self-care (01) | PROVIDERS: PCP Family Medicine; Referring Provider Obstetrics & Gynecology; Visit Provider Obstetrics & Gynecology | DX: Z12.31 Encounter for screening mammogram for malignant neoplasm of breast (principal) | CPT/HCPCS: 77063; 77067 ==

== ENCOUNTER → 2024-03-30 | Outpatient (CLI) | payer OTHER, SELFPAY | END | disposition home or self-care (01) | LOC: PSN 08:22 | PROVIDERS: PCP Family Medicine; Referring Provider Family Medicine; Visit Provider Family Medicine | DX: R00.2 Palpitations (principal) | CPT/HCPCS: 93225; 93226 ==

== ENCOUNTER → 2024-08-29 | Outpatient (CLI) | payer OTHER, SELFPAY ==
[2024-08-29 12:30] LABS: Thyroid Stim Hormone (TSH) 0.798 uIU/mL (0.300-4.200)
== END | disposition home or self-care (01) ==
LOC: LAB 11:21
PROVIDERS: PCP Family Medicine; Referring Provider Nurse Practitioner Family; Visit Provider Nurse Practitioner Family
DX: E03.8 Other specified hypothyroidism (principal); E06.3 Autoimmune thyroiditis
CPT/HCPCS: 36415; 84439; 84443

== ENCOUNTER → 2024-09-16 | Outpatient (CLI) | payer OTHER, SELFPAY ==
[2024-09-16 13:16] LABS: ALB/GLOB Ratio 1.7 RATIO (0.9-2.4); AST(SGOT) 22 U/L (<=31); Alanine Aminotransfer ALT/SGPT 29 U/L (<=34); Albumin, Serum 4.5 g/dL (3.5-5.0); Alkaline Phosphatase 82 U/L (35-104); Anion Gap 11 (5-15); BUN 22 mg/dL (4-19); BUN/Creat Ratio 34.4 RATIO (10-20); Calcium,Total 9.3 mg/dL (7.6-11.0); Carbon Dioxide 23.1 mmol/L (21.0-32.0); Chloride 102 mmol/L (98-108); Creatinine, Serum 0.64 mg/dL (0.70-1.20); EST Glomerular Filtration Rate 106 (>60); Globulin 2.7 g/dL (2.2-4.2); Glucose 86 mg/dL (70-99); Iron 50 ug/dL (50-170); Potassium 4.4 mmol/L (3.3-5.1); Protein, Total 7.1 g/dL (5.9-8.4); Sodium Level 136 mmol/L (133-145); Total Bilirubin 0.27 mg/dL (0.00-1.30)
[2024-09-16 13:20] LABS: Absolute Lymphocyte Count 2.18 X10^3/uL (0.83-4.51); Absolute Neutrophil Count 3.1 X10^3/uL (2.0-7.7); Basophil# 0.04 X10^3/uL; Basophil% 0.7 % (0-1); Eosinophil# 0.15 X10^3/uL; Eosinophils% 2.5 % (0-5); Hematocrit 38.3 % (37-47); Hemoglobin 12.6 g/dL (12.0-15.0); Lymphocyte # 2.18 X10^3/ul (0.83-4.51); Lymphocyte % 36.8 % (19-41); Mean Corp Hgb Conc 32.9 g/dL (32-36); Mean Corpuscular Hgb 28.2 pg (27.0-32.0); Mean Corpuscular Volume 85.7 fL (81-99); Mean Platelet Vol. 10.3 fl (6.2-12.0); Monocyte# 0.46 X10^3/uL; Monocyte% 7.8 % (0-10); NRBC Flagged by Analyzer 0 % (0-5); Neutrophil # 3.08 X10^3/uL (2.7-7.7); Platelet Count 282 K/mm3 (150-450); RBC Distribution Width CV 12.5 % (11.6-14.6); RBC Distribution Width SD 38.8 fl (35.1-43.9); Red Blood Count 4.47 M/mm3 (4.2-5.4); White Blood Count 5.9 K/mm3 (4.4-11.0)
[2024-09-16 13:33] LABS: Ferritin 80 ng/mL (22-378); Vitamin D,25 Hydroxy 31.8 ng/mL (30-100)
== END | disposition home or self-care (01) ==
LOC: BFHLAB 13:01
PROVIDERS: PCP Family Medicine; Visit Provider Nurse Practitioner Family
DX: R53.83 Other fatigue (principal)
CPT/HCPCS: 36415; 80053; 82306; 82728; 83540; 85025

== ENCOUNTER → 2024-10-05 | Outpatient (CLI) | payer OTHER, SELFPAY ==
[2024-10-05 12:48] LABS: Color, Urine Amber (Yellow); Glucose, Dipstick Normal (Normal); Ketone-Dipstick Negative (Negative); Leukocyte Esterase-Dipstick 500 /ul (Negative); Nitrite-Dipstick Positive (Negative); Occult Blood-Urine 25 /ul (Negative); Protein-Dipstick 15 mg/dl (Negative); Specific Gravity, Urine 1.025 (1.002-1.030)
[2024-10-05 12:58] LABS: Urine Bilirubin Dipstick 3 mg/dL (Negative)
[2024-10-05 13:34] LABS: Mucous, Urine 1+ /hpf (<or=2+); Red Blood Cells-Urine 0-5 SEEN /hpf (0-5); Squamous Epithelial Cells - UA 0-5 SEEN /hpf (5-10)
== END | disposition home or self-care (01) ==
LOC: LABSPEC 11:19
PROVIDERS: PCP Family Medicine; Referring Provider Nurse Practitioner Family; Visit Provider Nurse Practitioner Family
DX: R30.0 Dysuria (principal)
CPT/HCPCS: 81001; 87086; 87088

== ENCOUNTER → 2025-01-01 | Outpatient (CLI) | payer OTHER, SELFPAY ==
--- NOTE | 2025-01-01 11:04 | ECHOD_ITS ---
Reason For Study Reason For Study: Arrhythmia Procedure This was a 2D Doppler, Color Flow transthoracic echocardiogram. Myocardial strain analysis was performed in this exam to aid in the assessment of cardiac function. Exam performed in department. Left Ventricle Normal LV size. The global longitudinal strain = -18.4 % (normal). The estimated ejection fraction is 70 %. No evidence for diastolic dysfunction. No regional wall motion abnormalities noted. Right Ventricle Normal RV size. Normal systolic function. Atria The left and right atria are normal. No doppler evidence for ASD. Mitral Valve There is no mitral valve stenosis. No mitral valve insufficiency. Tricuspid Valve There is no tricuspid stenosis. Trivial tricuspid valve insufficiency. Unable to estimate RV systolic pressure due to insufficient tricuspid regurgitant envelope. Aortic Valve Trisinus/trileaflet aortic valve. There is no aortic stenosis. Mild (1+) aortic valve insufficiency. Pulmonic Valve There is no pulmonic valvular stenosis. No pulmonic valve insufficiency. Great Vessels Normal sized aortic root. Pericardium/Pleural No pericardial effusion. MMode/2D Measurements & Calculations LVIDd: 4.4 cm IVSd: 1.2 cm Ao root diam: 3.9 cm LVIDs: 2.7 cm LVPWd: 0.97 cm RVDd: 3.3 cm FS: 37.5 % LAV(MOD-bp): 47.2 ml LVAd ap4: 29.2 cm2 SV(MOD-sp4): 56.0 ml LAV(MOD-bp) Indexed: 24.2 ml/m2 LVLd ap4: 7.9 cm SI(MOD-sp4): 28.7 ml/m2 LAV(MOD-sp2): 43.5 ml EDV(MOD-sp4): 86.1 ml LAV(MOD-sp4): 45.4 ml EDV(sp4-el): 91.5 ml LVAs ap4: 15.3 cm2 LVLs ap4: 6.6 cm ESV(MOD-sp4): 30.1 ml ESV(sp4-el): 29.7 ml EF(MOD-sp4): 65.0 % EF(sp4-el): 67.5 % SV(sp4-el): 61.8 ml LA A4 area: 17.9 cm2 RA A4 area: 12.8 cm2 TAPSE: 1.8 cm Time Measurements MV dec time: 0.18 sec Doppler Measurements & Calculations MV E max mark: 60.7 cm/sec Lat Peak E' Mark: 12.8 cm/sec Med Peak E' Mark: 8.0 cm/sec MV A max mark: 74.6 cm/sec E/E' lat: 4.8 E/E' med: 7.6 MV E/A: 0.81 MV V2 max: 82.0 cm/sec MV P1/2t max mark: 76.8 cm/sec Ao V2 max: 134.1 cm/sec MV max P.7 mmHg MV P1/2t: 68.3 msec Ao max P.2 mmHg MV V2 mean: 51.0 cm/sec MV dec slope: 329.1 cm/sec2 Ao V2 mean: 92.9 cm/sec MV mean P.2 mmHg Ao mean P.0 mmHg MV V2 VTI: 19.8 cm MVA(P1/2t): 3.2 cm2 Ao V2 VTI: 29.4 cm AV (velocity ratio): 0.79 AI max mark: 449.6 cm/sec LV V1 max: 114.9 cm/sec PA V2 max: 103.9 cm/sec AI max P.9 mmHg LV V1 max P.3 mmHg PA V2 mean: 74.4 cm/sec AI dec slope: 357.8 cm/sec2 LV V1 mean P.3 mmHg AI P1/2t: 368.0 msec LV V1 mean: 85.0 cm/sec LV V1 VTI: 23.2 cm TR max mark: 207.5 cm/sec TR max P.3 mmHg ECHO/Echo Complete Interpretation Summary The estimated ejection fraction is 70 %. No evidence for diastolic dysfunction. Mild (1+) aortic valve insufficiency. Ordering Physician: Nnamdi Del Real Referring Physician: Nnamdi Del Real Performed By: Boo Osorio RCS
== END | disposition home or self-care (01) ==
PROVIDERS: PCP Family Medicine; Referring Provider Internal Medicine Cardiovascular Disease; Visit Provider Internal Medicine Cardiovascular Disease
DX: R00.2 Palpitations (principal)
CPT/HCPCS: 93306

== ENCOUNTER → 2025-01-05 | Outpatient (CLI) | payer OTHER, SELFPAY ==
[2025-01-05 11:37] LABS: Hematocrit 35.0 % (37-47); Hemoglobin 12.1 g/dL (12.0-15.0); Immature Granulocytes Count 0.020 X10^3/uL (0.0-0.0); Mean Corp Hgb Conc 34.6 g/dL (32-36); Mean Corpuscular Volume 83.5 fL (81-99); Mean Platelet Vol. 9.9 fl (6.2-12.0); NRBC Flagged by Analyzer 0 % (0-5); Platelet Count 270 K/mm3 (150-450); RBC Distribution Width CV 13.0 % (11.6-14.6); RBC Distribution Width SD 38.9 fl (35.1-43.9); Red Blood Count 4.19 M/mm3 (4.2-5.4); White Blood Count 6.9 K/mm3 (4.4-11.0)
[2025-01-05 12:18] LABS: AST(SGOT) 23 U/L (<=31); Alanine Aminotransfer ALT/SGPT 30 U/L (<=34); Albumin, Serum 4.4 g/dL (3.5-5.0); Alkaline Phosphatase 77 U/L (35-104); Anion Gap 10 (5-15); BUN 19 mg/dL (4-19); BUN/Creat Ratio 30.2 RATIO (10-20); Calcium,Total 9.3 mg/dL (7.6-11.0); Carbon Dioxide 25.0 mmol/L (21.0-32.0); Chloride 104 mmol/L (98-108); Cholesterol 145 mg/dL (<=200); Globulin 2.6 g/dL (2.2-4.2); Glucose 86 mg/dL (70-99); Low Density Lipoprotein Calc. 73 mg/dL; Potassium 4.3 mmol/L (3.3-5.1); Triglycerides 168 mg/dL; Very Low Density Lipoprotein 34 mg/dL (5-40); cholesterol:hdl ratio screen 3.77
[2025-01-05 13:59] LABS: Iron 81 ug/dL (50-170)
[2025-01-05 14:02] LABS: Ferritin 117 ng/mL (22-378); Free T3 3.6 pg/mL (2.18-3.98); Vitamin D,25 Hydroxy 39.5 ng/mL (30-100)
== END | disposition home or self-care (01) ==
LOC: LAB 10:48
PROVIDERS: PCP Family Medicine; Referring Provider Nurse Practitioner Family; Visit Provider Nurse Practitioner Family
DX: R03.0 Elevated blood-pressure reading, without diagnosis of hypertension (principal); E78.5 Hyperlipidemia, unspecified; Z51.81 Encounter for therapeutic drug level monitoring; E03.9 Hypothyroidism, unspecified; E55.9 Vitamin D deficiency, unspecified; E61.1 Iron deficiency
CPT/HCPCS: 36415; 80053; 80061; 82306; 82728; 83540; 84439; 84443; 84481; 85025

== ENCOUNTER → 2025-01-22 | Outpatient (CLI) | payer OTHER, SELFPAY | END | disposition home or self-care (01) | LOC: SL 10:01 | PROVIDERS: PCP Family Medicine; Referring Provider Nurse Practitioner Family; Visit Provider Nurse Practitioner Family | DX: Z46.89 Encounter for fitting and adjustment of other specified devices (principal) ==

== ENCOUNTER → 2025-02-19 | Outpatient (CLI) | payer OTHER, SELFPAY ==
--- NOTE | 2025-02-19 10:00 | BI_ITS ---
EXAM: SCRN MAMM (CAD)W/MATIAS BILAT DATE: 02/19/2025 CLINICAL HISTORY: F, Age 54 y/o , SCREEN FOR BREAST CANCER TECHNIQUE: Procedure Code: [id number] Modality: MG Procedure: SCRN MAMM (CAD)W/MATIAS BILAT COMPARISON: Prior exam(s) were compared FINDINGS: TISSUE DENSITY: The breasts are heterogeneously dense, which may obscure small masses. Bilateral Breast Mammographic Findings: No significant masses, calcifications or other abnormalities are identified. BI/SCRN MAMM (CAD)W/MATIAS BILAT IMPRESSION: No mammographic evidence of malignancy in either breast. OVERALL FINAL ASSESSMENT BI-RADS 1: NEGATIVE. RECOMMENDATION: Routine annual follow-up in 1 Year Additional Recommendation none A letter with findings and recommendations will be mailed to the patient. Reading Location: [id number]
--- OUTSIDE RECORDS SUMMARY | 2025-02-19 10:42 | XMS RPT_ITS | CCD ---
Author Organization [facility] Care Team Providers Care Panel Laminator Name Role Phone Dr. Sonal Botello Primary Care Provider [phone] Dr. Sonal Botello Referring Provider Luis E CORROSION CONTROL FITTER, CORROSION CONTROL FITTER-C Orin Borden Attending Provider [phone] Dr. Sonal Botello Primary Care Provider Dr. Sonal Botello Referring Provider [phone] Luis E CORROSION CONTROL FITTER, CORROSION CONTROL FITTER-C Orin Borden Attending Provider Dr. Martina Eason Attending Provider Dr. Levi Moss Attending Provider [phone] Dr. Sonal Botello Primary Care Provider Dr. Sonal Botello Referring Provider Dr. Levi Moss Attending Provider [phone] Dr. Sonal Botello Other Provider Dr. Levi Moss Other Provider Dr. Piotr Shukla Attending Provider Dr. Sonal Botello Primary Care Provider [phone] Dr. Sonal Botello Referring Provider Dr. Martina Eason Attending Provider [phone] Dr. Sonal Botello DO Primary Care Provider [phone] Mars SKAGGS-CT[place]ie Attending Provider [phone] Mars SKAGGS-[place] Referring Provider [phone] Vimal CORROSION CONTROL FITTER-CMaria Dolores Attending Provider Rosmery DO, Dr. Pruitt Referring Provider [phone] Billie CORROSION CONTROL FITTER-C, Florencio Lisa Attending Provider Billie CORROSION CONTROL FITTER-C, Florencio Lisa Referring Provider Nasima MONTEZ, Dr. Coto Attending Provider Rosmery READ, Dr. Pruitt Primary Care Physician Billie CORROSION CONTROL FITTER-C, Florencio Lisa Attending Physician [phone] Nasima MONTEZ, Dr. Coto Attending Physician [phone] Nasima MONTEZ, Dr. Coto Referring Provider Aditi MONTEZ, Dr. Terrell Attending Physician Vimal CORROSION CONTROL FITTER-C, Maria Dolores Attending Physician Vimal CORROSION CONTROL FITTER-C, Maria Dolores Referring Provider [phone] King TC, Dr. Sims Attending Physician Malys, Sonal Primary Care Unavailable Iris CORROSION CONTROL FITTER, Iris Referring Unavailable [place] CORROSION CONTROL FITTER, Iris Attending Unavailable Malys, Sonal Primary Care Unavailable Nnamdi Del Real Referring Unavailable Nnamdi Del Real Attending Unavailable Malys, Sonal Primary Care Unavailable Tamie Crews Referring Unavailable Tamie Crews Attending Unavailable Malys, Sonal Primary Care Unavailable Malys, Sonal Referring Unavailable Piotr Shukla Attending Unavailable Malys, Sonal Primary Care Unavailable Malys, Sonal Referring Unavailable Iris CORROSION CONTROL FITTER, Iris Attending Unavailable Malys, Sonal Primary Care Unavailable Xander Pennington Attending Unavailabl e Malys, Sonal Primary Care Unavailable Malys, Sonal Referring Unavailable Levi Moss Attending Unavailable Malys, Sonal Primary Care Unavailable Malys, Sonal Referring Unavailable [place]of CORROSION CONTROL FITTER, Florencio Lisa Attending Unavailable Malys, Sonal Primary Care Unavailable Malys, Sonal Referring Unavailable Nnamdi Del Real Attending Unavailable Malys, Sonal Primary Care Unavailable Nnamdi Del Real Referring Unavailable Nnamdi Del Real Attending Unavailable Malys, Sonal Primary Care Unavailable Vimal, Maria Dolores Referring Unavailable Vimal, Maria Dolores Attending Unavailable Malys, Sonal Primary Care Unavailable Vimal, Maria Dolores Referring Unavailable Vimal, Maria Dolores Attending Unavailable Malys, Sonal Primary Care Unavailable Malys, Sonal Referring Unavailable Malys, Sonal Attending Unavailable Martina Eason Referring Unavailjarred Botello Sonal Primary Care Unavailable Martina Eason Attending Unavailjarred Botello, Sonal Primary Care Unavailable Maria Dolores Celis Attending Unavailable Rosmery Sonal Primary Care Unavailable Florencio Wise NP Referring Unavailable Florencio Wise NP Attending Unavailable Medications Current Medications Medication Drug Class(es) Dates Sig (Normalized) Sig (Original) niharika dupree [id number] unt oral tablet (15 sources) Start: 02-02-2021 24 hr buPROPion hydrochloride 300 mg extended release oral tablet (20 sources) Aminoketone Start: 01-25-2023 take 1 tablet by mouth once daily in the morning Start: 12-28-2021 End: 01-25-2023 take 2 tablets by mouth once daily in the morning Bupropion Hcl 300 mg tablet extended release 24 hr Discontinued 150 mg PO EVERY MORNING December 28, 2021 8:50am January 25, 2023 8:39am Start: 12-28-2021 End: 01-25-2023 take 150 mg by mouth once daily in the morning Bupropion Hcl Discontinued 150 MG PO EVERY MORNING December 28, 2021 8:50am January 25, 2023 8:39am Start: 02-24-2019 End: 12-28-2021 take 1 tablet by mouth once daily in the morning Bupropion Hcl 300 mg tablet extended release 24 hr Discontinued 300 mg PO EVERY MORNING February 24, 2019 1:00am December 28, 2021 8:51am cholecalciferol 0.05 mg oral capsule (20 sources) Vitamin D Start: 01-25-2023 take 1 capsule by [facility] once daily Start: 02-02-2021 End: 12-28-2021 take 1 capsule by mouth once daily Cholecalciferol (Vitamin D3) 50 mcg (2,000 unit) capsule Discontinued 50 ug PO DAILY February 02, 2021 12:00am December 28, 2021 8:50am citalopram 40 mg oral tablet (6 sources) Serotonin Reuptake Inhibitor Start: 12-03-2024 take 1 tablet by mouth once daily Start: 10-04-2024 End: 12-03-2024 take 2 tablets by mouth once daily in the evening Citalopram 10 mg tablet Discontinued 20 mg PO EVERY EVENING October 04, 2024 12:00am December 03, 2024 2:27pm CPAP - Continuous Positive Airway Pressure([facility] INFORMATIONAL USE ONLY) (1 source) Start: 01-22-2025 CPAP - Continu ous Positive Airway Pressure([facility] INFORMATIONAL USE ONLY) Active 0 .ROUTE .MEDSUPPLY January 22, 2025 12:00am AUTOCPAP 5-15 DME- DASCO MASK- TRIALING SMALL RESMED N30 NASAL MASK AND A MEDIUM F20 FULL FACE MASK. CURRENTLY USES F10 FFM. [place] 2-Nec-Hff-Fish Oil (15 sources) Start: 01-24-2024 Start: 01-24-2024 [place] 3-Dha-Ep a-Fish Oil (Fish Oil) 300-1,000 mg capsule Active 1 NMA PO daily January 24, 2024 12:00am Start: 01-25-2023 End: 07-16-2023 [place] 2-Akm-Wlc-Fish Oil (Fi sh Oil) 300-1,000 mg capsule Discontinued 1 NMA PO DAILY January 25, 2023 12:00am July 16, 2023 8:59am Start: 01-25-2023 End: 07-16-2023 take 300-1000 mg by mouth once daily [place] 4-Prz-Yni-Fish Oil (Fish Oil) 300-1,000 mg capsule Discontinued 1 CAP PO DAILY January 25, 2023 12:00am July 16, 2023 8:59am Start: 01-25-2023 take 300-1000 mg by mouth once daily [place] 6-Amy-Gpq-Fish Oil (Fish Oil) 300-1,000 mg capsule Active 1 CAP PO DAILY January 24, 2023 11:00pm ferrous sulfate 325 mg oral tablet (19 sources) Start: 10-04-2024 take 1 tablet by kalyan th once daily Start: 02-02-2021 End: 12-28-2021 take 1 tablet by mouth once daily Ferrous Sulfate 325 mg (65 mg iron) tablet Discontinued 325 mg PO DAILY February 02, 2021 12:00am December 28, 2021 8:50am levothyroxine sodium 0.112 m g oral tablet (20 sources) l-Thyroxine Start: 01-22-2025 take 1 tablet by kalyan th once daily Start: 01-25-2023 End: 01-22-2025 take 1 tablet by mouth once daily Levothyroxine 112 mcg tablet Discontinued 112 ug PO DAILY 90 0 January 16, 2024 12:24pm January 27, 2024 10:33am Start: 02-02-2021 End: 01-25-2023 take 1 tablet by mouth once daily Levothyroxine 137 mcg tablet Discontinued 137 ug PO DAILY 90 2 July 24, 2022 3:48pm January 25, 2023 8:54am Start: 02-24-2019 End: 02-02-2021 take 1 capsule by mouth once daily Levothyroxine 112 mcg capsule Discontinued 112 ug PO DAILY February 24, 2019 1:00am February 02, 2021 10:38am liothyronine sodium 0.005 mg oral tablet (20 sources) l-Triiodothyronine Start: 01-24-2024 End: 01-22-2025 take 1 tablet by mouth twice daily Liothyronine 5 mcg tablet Discontinued 5 ug PO TWICE A DAY 180 3 January 27, 2024 10:32am January 22, 2025 8:56am Start: 12-21-2021 End: 01-24-2024 take 1 tablet by mouth three times daily Liothyronine 5 mcg tablet Discontinued 5 ug PO THREE TIMES A DAY 270 3 January 25, 2023 8:54am January 24, 2024 8:29am Start: 11-20-2021 End: 12-21-2021 take 1 tablet by mouth twice daily Liothyronine 5 mcg tablet Discontinued 15 ug PO TWICE A DAY November 20, 2021 7:22am December 21, 2021 12:20pm Start: 11-20-2021 End: 12-21-2021 take 15 ug by mouth twice daily Liothyronine Discontin ued 15 MCG PO TWICE A DAY November 20, 2021 7:22am December 21, 2021 12:20pm Start: 02-02-2021 End: 11-20-2021 take 3 tablets by mouth every week Liothyronine 5 mcg tablet Discontinued 15 ug PO DAILY February 02, 2021 12:00am November 20, 2021 7:22am 3 pills one time a week Start: 02-02-2021 End: 11-20-2021 take 3 doses by mouth every week Liothyronine Discontinued 15 MCG PO DAILY February 02, 2021 12:00am November 20, 2021 7:22am 3 pills one time a week Start: 02-24-2019 End: 02-02-2021 take 1 tablet by mouth once daily Liothyronine 25 mcg tablet Discontinued 25 ug PO DAILY February 24, 2019 1:00am February 02, 2021 10:38am LORazepam 1 mg oral tablet (19 sources) Benzodiazepine Start: 12-03-2024 take 1 tablet by kalyan th every six hours as needed Start: 02-24-2019 End: 04-12-2022 take 1 tablet by mouth once daily as needed for anxiety Lorazepam (Ativan) 1 mg tablet Discontinued 1 mg PO DAILY as needed for Anxiety February 24, 2019 1:00am April 12, 2022 3:39pm Multivitamin (Multi-Day) Tab let (15 sources) Start: 02-27-2021 Start: 02-27-2021 Multivitamin ( Multi-Day) Tablet Active 1 {tbl} PO DAILY February 27, 2021 10:10am Start: 02-27-2021 take 1 tablet by kalyan th once daily Multivitamin (Multi-Day) Tablet Active 1 TABLET PO DAILY February 27, 2021 9:10am Start: 02-27-2021 take 1 tablet by kalyan th once daily Multivitamin (Multi-Day) Tablet Active 1 TABLET PO DAILY February 27, 2021 10:10am pantoprazole 40 mg oral granules (15 sources) Proton Pump Inhibitor Start: 02-24-2019 take 40 mg by mout h at bedtime Start: 02-24-2019 take 40 mg by mouth at bedtime Pantoprazole (Protonix) [address] for susp in packet Active 40 MG PO AT BEDTIME February 24, 2019 1:00am Tirzepatide (Weight Loss) (6 sources) Start: 01-24-2024 Start: 01-24-2024 Tirzepatide (W eight Loss) (Zepbound) 10 mg/0.5 mL pen injector Active 10 mg SC EVERY WEEK January 24, 2024 12:00am Completed/Discontinued Medications Medication Drug Class(es) Dates Sig (Normalized) Sig (Original) Cranberry (12 sources) Non-Standardized Food Allergenic Extract, Non-Standardized Plant Allergenic Extract Start: 12-28-2021 End: 07-16-2023 take 1 capsule by mouth twice daily at mealtime Cranberry 500 mg capsule Discontinued 500 mg PO TWICE A DAY December 28, 2021 12:00am July 16, 2023 8:59am administer with meals Start: 12-28-2021 End: 07-16-2023 take 500 mg by mouth twice daily at mealtime Cranberry Discontinued 500 MG PO TWICE A DAY December 28, 2021 12:00am July 16, 2023 8:59am administer with meals Start: 12-28-2021 take 500 mg by mouth twice daily at mealtime Cranberry Active 500 MG PO TWICE A DAY December 28, 2021 12:00am administer with meals Start: 12-28-2021 take 500 mg by mouth twice daily at mealtime Cranberry Active 500 MG PO TWICE A DAY December 27, 2021 11:00pm administer with meals Magnesium (9 sources) Start: 01-25-2023 End: 01-24-2024 take 1 tablet by mouth once daily Magnesium 250 mg tablet Discontinued 250 mg PO DAILY January 25, 2023 12:00am January 24, 2024 8:28am Start: 01-25-2023 take 250 mg by mouth once argelia y Magnesium Active 250 MG PO DAILY January 25, 2023 12:00am Start: 01-25-2023 take 250 mg by mouth once argelia y Magnesium Active 250 MG PO DAILY January 24, 2023 11:00pm multivitamin capsule (9 sources) Start: 02-24-2019 End: 02-27-2021 take 1 capsule by mouth once daily multivitamin capsule Discontinued 1 CAP PO DAILY February 24, 2019 12:00am February 27, 2021 9:10am Start: 02-24-2019 End: 02-27-2021 take 1 capsule by mouth once daily multivitamin capsule Discontinued 1 CAP PO DAILY February 24, 2019 1:00am February 27, 2021 10:10am Multivitamin capsule (6 sources) Start: 02-24-2019 End: 02-27-2021 Multivitamin capsule Discontinued 1 NMA PO DAILY February 24, 2019 1:00am February 27, 2021 10:10am nitrofurantoin, macrocrystals 100 mg oral capsule (13 sources) Nitrofuran Antibacterial Start: 11-10-2021 End: 11-20-2021 take 1 capsule by mouth twice daily at mealtime Nitrofurantoin Macrocrystal 100 mg capsule Discontinued 100 mg PO TWICE A DAY 20 10 0 November 10, 2021 12:00am November 19, 2021 12:00am November 20, 2021 12:04am must administer with a meal/food nitrofurantoin, macrocrystals 25 mg / nitrofurantoin, monohydrate 75 mg oral capsule (4 sources) Nitrofuran Antibacterial Start: 10-04-2024 End: 10-11-2024 take 1 capsule by mouth every twelve hours at mealtime Nitrofurantoin Monohyd/M-Cryst (Macrobid) 100 mg capsule Discontinued 100 mg PO Q12H 14 7 0 October 04, 2024 12:00am October 10, 2024 12:00am October 11, 2024 12:07am must administer with a meal/food Semaglutide (20 sources) Start: 02-02-2022 End: 11-07-2022 Semaglutide (Ozempic) 1 mg/dose (4 mg/3 mL) pen injector Discontinued 1 mg SC EVERY WEEK 3 February 02, 2022 12:00am November 07, 2022 1:16pm Start: 02-02-2022 End: 11-07-2022 Semaglutide (Ozempic) 1 mg/d ose (4 mg/3 mL) pen injector Discontinued 1 mg SC EVERY WEEK February 02, 2022 12:00am November 07, 2022 1:16pm Start: 02-02-2022 End: 11-07-2022 Semaglutide (Ozempic) 1 mg/d ose (4 mg/3 mL) pen injector Discontinued 1 MG SC EVERY WEEK February 01, 2022 11:00pm November 07, 2022 12:16pm Start: 02-02-2022 End: 11-07-2022 Semaglutide (Ozempic) 1 mg/d ose (4 mg/3 mL) pen injector Discontinued 1 MG SC EVERY WEEK February 02, 2022 12:00am November 07, 2022 1:16pm Start: 02-02-2022 Semaglutide (O zempic) 1 mg/dose (4 mg/3 mL) pen injector Active 1 MG SC EVERY WEEK February 01, 2022 11:00pm Start: 11-09-2021 End: 01-30-2022 Semaglutide (Ozempic) 1 mg/d ose (4 mg/3 mL) pen injector Discontinued 1 mg SC SA 3 November 09, 2021 8:37am January 30, 2022 8:27am Start: 11-09-2021 End: 01-30-2022 Semaglutide (Ozempic) 1 mg/d ose (4 mg/3 mL) pen injector Discontinued 1 mg SC SA November 09, 2021 8:37am January 30, 2022 8:27am Start: 11-09-2021 End: 01-30-2022 Semaglutide (Ozempic) 1 mg/d ose (4 mg/3 mL) pen injector Discontinued 1 MG SC SA 3 November 09, 2021 8:37am January 30, 2022 8:27am Start: 11-09-2021 End: 01-30-2022 Semaglutide (Ozempic) 1 mg/d ose (4 mg/3 mL) pen injector Discontinued 1 MG SC SA November 09, 2021 7:37am January 30, 2022 7:27am Start: 11-09-2021 Semaglutide (O zempic) 1 mg/dose (4 mg/3 mL) pen injector Active 1 MG SC SA November 09, 2021 8:37am Start: 07-20-2021 End: 11-09-2021 Semaglutide (Ozempic) 1 mg/d ose (4 mg/3 mL) pen injector Discontinued 1 mg SC SA 3 July 20, 2021 10:36am November 09, 2021 8:37am Start: 07-20-2021 End: 11-09-2021 Semaglutide (Ozempic) 1 mg/d ose (4 mg/3 mL) pen injector Discontinued 1 mg SC SA July 20, 2021 10:36am November 09, 2021 8:37am Start: 07-20-2021 End: 11-09-2021 Semaglutide (Ozempic) 1 mg/d ose (4 mg/3 mL) pen injector Discontinued 1 MG SC SA July 20, 2021 9:36am November 09, 2021 7:37am Start: 07-20-2021 End: 11-09-2021 Semaglutide (Ozempic) 1 mg/d ose (4 mg/3 mL) pen injector Discontinued 1 MG SC SA July 20, 2021 10:36am November 09, 2021 8:37am Start: 07-20-2021 Semaglutide (O zempic) 1 mg/dose (4 mg/3 mL) pen injector Active 1 MG SC SA July 20, 2021 10:36am Start: 02-27-2021 End: 07-20-2021 Semaglutide (Ozempic) 1 mg/d ose (4 mg/3 mL) pen injector Discontinued 1 mg SC SA February 27, 2021 10:10am July 20, 2021 10:36am Start: 02-27-2021 End: 07-20-2021 Semaglutide (Ozempic) 1 mg/d ose (4 mg/3 mL) pen injector Discontinued 1 MG SC SA February 27, 2021 9:10am July 20, 2021 9:36am Start: 02-27-2021 End: 07-20-2021 Semaglutide (Ozempic) 1 mg/d ose (4 mg/3 mL) pen injector Discontinued 1 MG SC SA February 27, 2021 10:10am July 20, 2021 10:36am Start: 02-02-2021 End: 02-27-2021 Semaglutide (Ozempic) 1 mg/d ose (4 mg/3 mL) pen injector Discontinued 1 mg SC EVERY WEEK 12 02February 02, 2021 12:00am February 27, 2021 10:10am Start: 02-02-2021 End: 02-27-2021 Semaglutide (Ozempic) 1 mg/d ose (4 mg/3 mL) pen injector Discontinued 1 mg SC EVERY WEEK February 02, 2021 12:00am February 27, 2021 10:10am Start: 02-02-2021 End: 02-27-2021 Semaglutide (Ozempic) 1 mg/d ose (4 mg/3 mL) pen injector Discontinued 1 MG SC EVERY WEEK February 01, 2021 11:00pm February 27, 2021 9:10am Start: 02-02-2021 End: 02-27-2021 Semaglutide (Ozempic) 1 mg/d ose (4 mg/3 mL) pen injector Discontinued 1 MG SC EVERY WEEK February 02, 2021 12:00am February 27, 2021 10:10am 1 mg dose 1.5 ml semaglutide 1.34 mg/ml pen injector (9 sources) Start: 02-02-2021 End: 02-02-2021 Semaglutide (Ozempic) 1 mg/d ose (2 mg/1.5 mL) pen injector Discontinued 1 MG SC EVERY WEEK February 02, 2021 12:00am February 02, 2021 10:43am Semaglutide (2 sources) Start: 11-07-2022 End: 11-07-2022 Semaglutide (Ozempic) 2 mg/d ose (8 mg/3 mL) pen injector Discontinued 2 mg SC EVERY WEEK 12 02November 07, 2022 12:58pm November 07, 2022 1:16pm Prediabetes Prediabetes Start: 01-30-2022 End: 11-07-2022 Semaglutide (Ozempic) 2 mg/d ose (8 mg/3 mL) pen injector Discontinued 2 mg SC EVERY WEEK 9 January 30, 2022 12:00am November 07, 2022 12:58pm Semaglutide (Ozempic) 1 mg/d ose (2 mg/1.5 mL) pen injector (6 sources) Start: 02-02-2021 End: 02-02-2021 Semaglutide (Ozempic) 1 mg/d ose (2 mg/1.5 mL) pen injector Discontinued 1 mg SC EVERY WEEK February 02, 2021 12:00am February 02, 2021 10:43am Semaglutide (Ozempic) 2 mg/d ose (8 mg/3 mL) pen injector (20 sources) Start: 11-07-2022 End: 11-07-2022 Semaglutide (Ozempic) 2 mg/d ose (8 mg/3 mL) pen injector Discontinued 2 mg SC EVERY WEEK 9 November 07, 2022 12:58pm November 07, 2022 1:16pm Prediabetes Prediabetes Start: 11-07-2022 End: 11-07-2022 Semaglutide (Ozempic) 2 mg/d ose (8 mg/3 mL) pen injector Discontinued 2 mg SC EVERY WEEK November 07, 2022 12:58pm November 07, 2022 1:16pm Start: 11-07-2022 End: 11-07-2022 Semaglutide (Ozempic) 2 mg/d ose (8 mg/3 mL) pen injector Discontinued 2 MG SC EVERY WEEK November 07, 2022 11:58am November 07, 2022 12:16pm Start: 11-07-2022 End: 11-07-2022 Semaglutide (Ozempic) 2 mg/d ose (8 mg/3 mL) pen injector Discontinued 2 MG SC EVERY WEEK November 07, 2022 12:58pm November 07, 2022 1:16pm Start: 01-30-2022 End: 11-07-2022 Semaglutide (Ozempic) 2 mg/d ose (8 mg/3 mL) pen injector Discontinued 2 mg SC EVERY WEEK 12 02January 30, 2022 12:00am November 07, 2022 12:58pm Start: 01-30-2022 End: 11-07-2022 Semaglutide (Ozempic) 2 mg/d ose (8 mg/3 mL) pen injector Discontinued 2 mg SC EVERY WEEK January 30, 2022 12:00am November 07, 2022 12:58pm Start: 01-30-2022 End: 11-07-2022 Semaglutide (Ozempic) 2 mg/d ose (8 mg/3 mL) pen injector Discontinued 2 MG SC EVERY WEEK January 29, 2022 11:00pm November 07, 2022 11:58am Start: 01-30-2022 End: 11-07-2022 Semaglutide (Ozempic) 2 mg/d ose (8 mg/3 mL) pen injector Discontinued 2 MG SC EVERY WEEK January 30, 2022 12:00am November 07, 2022 12:58pm Start: 01-30-2022 Semaglutide (O zempic) 2 mg/dose (8 mg/3 mL) pen injector Active 2 MG SC EVERY WEEK 9 January 29, 2022 11:00pm sertraline 100 mg oral tablet (20 sources) Serotonin Reuptake Inhibitor Start: 01-25-2023 End: 10-04-2024 take 2 tablets by mouth once daily Sertraline (Zoloft) 100 mg tablet Discontinued 200 mg PO DAILY January 25, 2023 8:37am October 04, 2024 11:24am Start: 02-24-2019 End: 01-25-2023 Sertraline (Zoloft) 100 mg t ablet Discontinued 150 mg PO DAILY February 24, 2019 1:00am January 25, 2023 8:39am Tirzepatide (1 source) Start: 01-25-2023 End: 06-25-2023 Tirzepatide (Mounjaro) 12.5 mg/0.5 mL pen injector Discontinued 12.5 mg SC EVERY WEEK 6 2 January 25, 2023 12:00am June 25, 2023 7:19am Tirzepatide (2 sources) Start: 08-29-2023 End: 01-24-2024 Tirzepatide (Mounjaro) 7.5 m g/0.5 mL pen injector Discontinued 7.5 mg SC EVERY WEEK 2 5 August 29, 2023 12:00am January 24, 2024 8:28am Prediabetes Prediabetes Start: 11-07-2022 End: 12-11-2022 Tirzepatide (Mounjaro) 7.5 m g/0.5 mL pen injector Discontinued 7.5 mg SC EVERY WEEK 2 3 November 07, 2022 12:00am December 11, 2022 7:40am Prediabetes Prediabetes Tirzepatide (3 sources) Start: 06-25-2023 End: 08-29-2023 Tirzepatide (Mounjaro) 10 mg /0.5 mL pen injector Discontinued 10 mg SC EVERY WEEK 6 June 25, 2023 12:00am August 29, 2023 4:36pm Start: 01-09-2023 End: 01-25-2023 Tirzepatide (Mounjaro) 10 mg /0.5 mL pen injector Discontinued 10 mg SC EVERY WEEK 6 January 09, 2023 1:30pm January 25, 2023 8:52am Prediabetes Prediabetes Start: 12-11-2022 End: 01-09-2023 Tirzepatide (Mounjaro) 10 mg /0.5 mL pen injector Discontinued 10 mg SC EVERY WEEK 2 December 11, 2022 12:00am January 09, 2023 1:30pm Tirzepatide (Mounjaro) 10 mg/0.5 mL pen injector (20 sources) Start: 06-25-2023 End: 08-29-2023 Tirzepatide (Mounjaro) 10 mg /0.5 mL pen injector Discontinued 10 mg SC EVERY WEEK 6 June 25, 2023 12:00am August 29, 2023 4:36pm Start: 06-25-2023 End: 08-29-2023 Tirzepatide (Mounjaro) 10 mg /0.5 mL pen injector Discontinued 10 mg SC EVERY WEEK 6 June 25, 2023 12:00am August 29, 2023 4:36pm Start: 06-25-2023 Tirzepatide (M ounjaro) 10 mg/0.5 mL pen injector Active 10 MG SC EVERY WEEK 6 June 25, 2023 12:00am Start: 01-09-2023 End: 01-25-2023 Tirzepatide (Mounjaro) 10 mg /0.5 mL pen injector Discontinued 10 mg SC EVERY WEEK 6 January 09, 2023 1:30pm January 25, 2023 8:52am Prediabetes Prediabetes Start: 01-09-2023 End: 01-25-2023 Tirzepatide (Mounjaro) 10 mg /0.5 mL pen injector Discontinued 10 mg SC EVERY WEEK 6 January 09, 2023 1:30pm January 25, 2023 8:52am Start: 01-09-2023 End: 01-25-2023 Tirzepatide (Mounjaro) 10 mg /0.5 mL pen injector Discontinued 10 MG SC EVERY WEEK 6 January 09, 2023 1:30pm January 25, 2023 8:52am Start: 01-09-2023 End: 01-25-2023 Tirzepatide (Mounjaro) 10 mg /0.5 mL pen injector Discontinued 10 MG SC EVERY WEEK 6 January 09, 2023 12:30pm January 25, 2023 7:52am Start: 12-11-2022 End: 01-09-2023 Tirzepatide (Mounjaro) 10 mg /0.5 mL pen injector Discontinued 10 mg SC EVERY WEEK 2 4 December 11, 2022 12:00am January 09, 2023 1:30pm Start: 12-11-2022 End: 01-09-2023 Tirzepatide (Mounjaro) 10 mg /0.5 mL pen injector Discontinued 10 mg SC EVERY WEEK 2 December 11, 2022 12:00am January 09, 2023 1:30pm Start: 12-11-2022 End: 01-09-2023 Tirzepatide (Mounjaro) 10 mg /0.5 mL pen injector Discontinued 10 MG SC EVERY WEEK 2 December 11, 2022 12:00am January 09, 2023 1:30pm Start: 12-11-2022 End: 01-09-2023 Tirzepatide (Mounjaro) 10 mg /0.5 mL pen injector Discontinued 10 MG SC EVERY WEEK 2 December 10, 2022 11:00pm January 09, 2023 12:30pm Start: 12-11-2022 Tirzepatide (M ounjaro) 10 mg/0.5 mL pen injector Active 10 MG SC EVERY WEEK 2 December 11, 2022 12:00am Tirzepatide (Mounjaro) 12.5 mg/0.5 mL pen injector (8 sources) Start: 01-25-2023 End: 06-25-2023 Tirzepatide (Mounjaro) 12.5 mg/0.5 mL pen injector Discontinued 12.5 mg SC EVERY WEEK 6 2 January 25, 2023 12:00am June 25, 2023 7:19am Start: 01-25-2023 End: 06-25-2023 Tirzepatide (Mounjaro) 12.5 mg/0.5 mL pen injector Discontinued 12.5 mg SC EVERY WEEK 6 January 25, 2023 12:00am June 25, 2023 7:19am Start: 01-25-2023 End: 06-25-2023 Tirzepatide (Mounjaro) 12.5 mg/0.5 mL pen injector Discontinued 12.5 MG SC EVERY WEEK 6 January 25, 2023 12:00am June 25, 2023 7:19am Start: 01-25-2023 Tirzepatide (M ounjaro) 12.5 mg/0.5 mL pen injector Active 12.5 MG SC EVERY WEEK 6 January 24, 2023 11:00pm Tirzepatide (Mounjaro) 7.5 mg/0.5 mL pen injector (14 sources) Start: 08-29-2023 End: 01-24-2024 Tirzepatide (Mounjaro) 7.5 mg/0.5 mL pen injector Discontinued 7.5 mg SC EVERY WEEK 2 August 29, 2023 12:00am January 24, 2024 8:28am Prediabetes Prediabetes Start: 08-29-2023 End: 01-24-2024 Tirzepatide (Mounjaro) 7.5 m g/0.5 mL pen injector Discontinued 7.5 mg SC EVERY WEEK 2 August 29, 2023 12:00am January 24, 2024 8:28am Start: 11-07-2022 End: 12-11-2022 Tirzepatide (Mounjaro) 7.5 m g/0.5 mL pen injector Discontinued 7.5 mg SC EVERY WEEK 2 3 November 07, 2022 12:00am December 11, 2022 7:40am Prediabetes Prediabetes Start: 11-07-2022 End: 12-11-2022 Tirzepatide (Mounjaro) 7.5 m g/0.5 mL pen injector Discontinued 7.5 mg SC EVERY WEEK 2 November 07, 2022 12:00am December 11, 2022 7:40am Start: 11-07-2022 End: 12-11-2022 Tirzepatide (Mounjaro) 7.5 m g/0.5 mL pen injector Discontinued 7.5 MG SC EVERY WEEK 2 November 06, 2022 11:00pm December 11, 2022 6:40am Start: 11-07-2022 End: 12-11-2022 Tirzepatide (Mounjaro) 7.5 m g/0.5 mL pen injector Discontinued 7.5 MG SC EVERY WEEK 2 November 07, 2022 12:00am December 11, 2022 7:40am Problems Active Problems Problem Classification Problem Date Documented Da te Episodic/Chronic Benign neoplasm of uterus (15 sources) Uterine leiomyoma; Translations: [Leiomyoma of uterus, unspecified] 01-11-2022 Episodic Comment on above: discussed options pl an lysteda, fu in 4 months and consider ablation or TVH if no improvment. Cardiac dysrhythmias (19 sources) Tachycardia; Translations: [Tachycardia, unspecified] Onset: 12-03-2024 11-26-2021 Episodic Diabetes mellitus without complication (14 sources) Prediabetes; Translations: [Prediabetes] Episodic Genitourinary symptoms and ill-defined conditions (16 sources) Female stress incontinence; Translations: [Stress incontinence (female) (male)] Chronic Menstrual disorders (14 sources) Menorrhagia; Translations: [Excessive and frequent menstruation with regular cycle] Chronic Comment on above: US-thickened endomet rium lining 9mm & Uterine fibroid. EMB Other bone disease and musculoskeletal deformities (20 sources) Segmental and somatic dysfunction; Translations: [Segmental and somatic dysfunction of lumbar region] 04-12-2022 Episodic Other circulatory disease (1 source) Elevated blood-pressure reading, without diagnosis of hypertension; Translations: [Elevated blood-pressure reading, without diagnosis of hypertension] Onset: 01-22-2025 Episodic Other endocrine disorders (16 sources) Polycystic ovary syndrome; Translations: [Polycystic ovarian syndrome] 02-02-2021 Chronic Other endocrine disorders (5 sources) Polycystic ovarian syndrome; Translations: [Polycystic ovaries] Onset: 01-22-2025 Chronic Other nutritional; endocrine; and metabolic disorders (15 sources) Obesity; Translations: [Obesity, unspecified] 01-30-2022 Chronic Other nutritional; endocrine; and metabolic disorders (4 sources) Obesity, unspecified; Translations: [Obesity, unspecified] Chronic Other screening for suspected conditions (not mental disorders or infectious disease) (2 sources) Encounter for screening mammogram for malignant neoplasm of breast; Translations: [Encounter for screening mammogram for malignant neoplasm of breast] Onset: 03-02-2024 Episodic Rehabilitation care; fitting of prostheses; and adjustment of devices (1 source) Encounter for fitting and adjustment of other specified devices; Translations: [Encounter for fitting and adjustment of other specified devices] Onset: 02-01-2025 Chronic Spondylosis; intervertebral disc disorders; other back problems (20 sources) Backache; Translations: [Dorsalgia, unspecified] 04-12-2022 Episodic Thyroid disorders (20 sources) 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; Translations: [Other specified hypothyroidism] Onset: 01-22-2025 Chronic Urinary tract infections (20 sources) Urinary tract infectious disease; Translations: [Urinary tract infection, site not specified] Episodic Viral infection (13 sources) Disease caused by 2019-nCoV; Translations: [COVID-19] 11-18-2021 Episodic Past or Other Problems Problem Classification Problem Date Documented Da te Episodic/Chronic Genitourinary symptoms and ill-defined conditions (1 source) Dysuria; Translations: [Dysuria] Onset: 10-09-2024 Episodic Malaise and fatigue (1 source) Other fatigue; Translations: [Other fatigue] Onset: 09-22-2024 Episodic Results Test Name Value Interpretation Reference Range Facility Endocrinology Visit Reporton 01-22-2025 Endocrinology Visit Report [facility] [address] [place] [address] OFFICE VISIT Date of Service: 01/22/25 MR#: [id number] Acct: [id number] Name: NICKIE STUBBS HERNANDEZ Rep #: [id number] : 1970 Provider: Jane Staton Age/Sex: 54/F [place] [facility] [place]: Signed Intake Vital Signs 01/24/24 08:22 12/03/24 14:26 01/22/25 08:34 Height 5 ft 6 in 5 ft 6 in 5 ft 6 in Weight: 188 lb BMI 30.3 BP 131/83 H Blood Pressure Location Rt brachial Position Sitting Pulse 88 Pulse Source Monitor Pulse Oximetry (%) 97 Oxygen Delivery Method room air Intake Visit Reasons: 1 Y FU Chief Complaint: thyroid Is patient in pain?: No Allergies No Known Allergies Allergy (Verified 01/22/25 08:36) Medications ???Medication ???Instructions ???Recorded ???Confirmed ???Type pantoprazole 40 mg granules 40 mg PO QHS 02/24/19 01/22/25 His tory delayed-release for susp in packet (Protonix) Bacillus coagulans 800 million 1 cell PO DAILY 02/02/21 01/22/25 History cell tablet (Digestive Advantage Probiotics-Prebiotic) multivitamin 1 tab PO DAILY 02/27/21 01/22/25 H istory bupropion HCl 300 mg 24 hr tablet, 300 mg PO QAM 01/25/23 01/22/25 History extended release cholecalciferol (vitamin D3) 50 50 mcg PO DAILY 01/25/23 01/22/25 History mcg (2,000 unit) capsule omega 8-fgs-rtj-fish oil 300 1 cap PO QDAY 01/24/24 01/22/25 Hi story mg-1,000 mg capsule (Fish Oil) tirzepatide (weight loss) 10 10 mg subcut QWEEK 01/24/24 History mg/0.5 mL subcutaneous pen injector (Zepbound) ferrous sulfate 325 mg (65 mg 325 mg PO QDAY 10/04/24 01/22/25 H istory iron) tablet (iron) citalopram 40 mg tablet 40 mg PO QDAY 12/03/24 01/22/25 Hi story lorazepam 1 mg tablet 1 mg PO Q6 PRN 12/03/24 01/22/25 H istory levothyroxine 112 mcg tablet 112 mcg PO DAILY #90 tabs 01/22/25 01/22/25 Rx PFSH Medical History Prediabetes History of Holter monitoring Gastric reflux Non-smoker CPAP (continuous positive airway pressure) dependence Sleep apnea Obesity PCOS (polycystic ovarian syndrome) 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 Cholecystectomy planned Tonsillectomy planned Thyroid disease GERD (gastroesophageal reflux disease) Headache Gallstones Hypothyroid Fibroids Depression Anxiety PCOS (polycystic ovarian syndrome) Surgical History History of hernia surgery History of tonsillectomy H/O sinus surgery Hernia History of cholecystectomy Family History Father Heart disease Grandmother Breast cancer Colon cancer Aunt Colon cancer Mother COPD (chronic obstructive pulmonary disease) Other Anxiety Cancer Depression High cholesterol Myocardial infarction Suicide Thyroid disorder Social History number of children: 3 current occupational status: employed current occupation: [employer] Smoking Status: Never smoker alcohol intake: never substance use type: does not use caffeine: Yes what type of physical activity do you participate in: walking frequency: 3-4 times per week seatbelt use: always do you feel safe at home: Yes 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 She has hypothyroidism. She is taking levothyroxine and liothyronine. TSH is normal. She is feeling well. She is on Zepbound for weight loss, however, insurance will stop paying at the end of the year. She would like to come off of liothyronine. ROS Const Constitutional: Positive for weight change; No fatigue or change in appetite Eyes Eyes: No change in vision ENT ENT: No dizziness/vertigo or difficulty swallowing Cardio Cardiology: No chest pain at rest, chest pain with exertion, shortness of breath or palpitations Musc Musculoskeletal: No abnormal gait, joint pain, numbness or tingling Neuro Neurology: No abnormal gait, memory loss, numbness or tingling Psych Psychiatric: No change in appetite, No memory loss and No Thoughts of harming yourself/Others Resp Respiratory: No cough, chest congestion or shortness of breath Gastro GI: No abdominal pain, constipation, diarrhea or difficulty swallowing Genitourinary-Female: No burning urination Skin Skin: No itchy eyes or wounds Endo Endocrine: Positive for weight change; No fatigue Aller/Imm Allergy/Immunologic: No itchy eyes Exam Const General: cooperative, healthy appearing, comfortable, no acute d (more content not included)... Normal [facility] Absolute lymphocyte countOrd ered By: Maria Dolores Celis on 01-05-2025 Lymphocytes Auto (Unsp spec) [#/Vol] 2.58 10*3/uL 0.83-4.51 [facility] Absolute neutrophil countOrd ered By: Maria Dolores Celis on 01-05-2025 Neutrophils (Bld) [#/Vol] 3.4 10*3/uL 2.0-7.7 [facility] Anion gap in Serum or Plasma Ordered By: Maria Doloresjt eClis on 01-05-2025 Anion gap [Moles/Vol] 10 mmol/L 5- [facility] Automated lymphocyte count a s percentage of total leukocytesOrdered By: Maria Dolores Celis on 01-05-2025 Lymphocytes/100 WBC Auto (Unsp spec) 37.4 % - [facility] BUN/creatinine ratioOrdered By: Maria Dolores Vimal on 01-05-2025 Urea nitrogen/Creatinine [Mass ratio] 30.2 mg/mg High 10- [facility] Basophil percentageOrdered B y: Maria Dolores Celis on 01-05-2025 Basophils/100 WBC (Bld) 0.7 % 0-1 [facility] Bilirubin, totalOrdered By: [facility] on 01-05-2025 Bilirubin [Mass/Vol] 0.29 mg/dL 0.00-1.30 [facility] CBC W/Diff, Automatedon Absolute Lymph 2.58 X10 3/uL Normal 0.83-4.51 [facility] Comment on above: Performed By: #### L 501.30941, L500.4050, L501.9520, L503.6150, L500.4100, L506.1001, L506.0400, L100.0100, L503.6550 #### [facility] [address] [place], [address] Absolute Neut 3.4 X10 3/uL Normal 2.0-7.7 [facility] Comment on above: Performed By: #### L 501.95136, L500.4050, L501.9520, L503.6150, L500.4100, L506.1001, L506.0400, L100.0100, L503.6550 #### [facility] [address] [place], [address] Basophils/100 WBC (Bld) 0.7 % Normal 0-1 [facility] Comment on above: Performed By: #### L 501.11526, L500.4050, L501.9520, L503.6150, L500.4100, L506.1001, L506.0400, L100.0100, L503.6550 #### [facility] [address] [place], [address] Eosinophils/100 WBC (Bld) 4.2 % Normal 0-5 [facility] Comment on above: Performed By: #### L 501.27055, L500.4050, L501.9520, L503.6150, L500.4100, L506.1001, L506.0400, L100.0100, L503.6550 #### [facility] [address] [place], [address] Erythrocyte distribution width (RBC) [Ratio] 13.0 % Normal 11.6-14.6 [facility] Comment on above: Performed By: #### L 501.19782, L500.4050, L501.9520, L503.6150, L500.4100, L506.1001, L506.0400, L100.0100, L503.6550 #### [facility] [address] [place], [address] Hematocrit (Bld) [Volume fraction] 35.0 % Low 37-47 [facility] Comment on above: Performed By: #### L 501.73313, L500.4050, L501.9520, L503.6150, L500.4100, L506.1001, L506.0400, L100.0100, L503.6550 #### [facility] [address] [place], [address] Hemoglobin (Bld) [Mass/Vol] 12.1 g/dL Normal 12.0-15.0 [facility] Comment on above: Performed By: #### L 501.23358, L500.4050, L501.9520, L503.6150, L500.4100, L506.1001, L506.0400, L100.0100, L503.6550 #### [facility] [address] [place], [address] IG% 0.300 Normal 0.0-0.9 [facility] Comment on above: Result Comment: IG% - Immature Granulocytes (promyelocytes, myelocytes and metamyelocytes) > 1% indicates that a LEFT SHIFT is Present. Performed By: #### L 501.80318, L500.4050, L501.9520, L503.6150, L500.4100, L506.1001, L506.0400, L100.0100, L503.6550 #### [facility] [address] [place], [address] Lymphocytes/100 WBC (Bld) 37.4 % Normal 19-41 [facility] Comment on above: Performed By: #### L 501.80642, L500.4050, L501.9520, L503.6150, L500.4100, L506.1001, L506.0400, L100.0100, L503.6550 #### [facility] [address] [place], [address] MCH (RBC) [Entitic mass] 28.9 pg Normal 27.0-32.0 [facility] Comment on above: Performed By: #### L 501.45174, L500.4050, L501.9520, L503.6150, L500.4100, L506.1001, L506.0400, L100.0100, L503.6550 #### [facility] [address] [place], [address] MCHC (RBC) [Mass/Vol] 34.6 g/dL Normal 32-36 [facility] Comment on above: Performed By: #### L 501.10377, L500.4050, L501.9520, L503.6150, L500.4100, L506.1001, L506.0400, L100.0100, L503.6550 #### [facility] [address] [place], [address] MCV (RBC) [Entitic vol] 83.5 fL Normal 81-99 [facility] Comment on above: Performed By: #### L 501.66860, L500.4050, L501.9520, L503.6150, L500.4100, L506.1001, L506.0400, L100.0100, L503.6550 #### [facility] [address] [place], [address] Monocytes/100 WBC (Bld) 8.3 % Normal 0-10 [facility] Comment on above: Performed By: #### L 501.01694, L500.4050, L501.9520, L503.6150, L500.4100, L506.1001, L506.0400, L100.0100, L503.6550 #### [facility] [address] [place], [address] Neutrophils/100 WBC (Bld) 49.1 % Normal 47-70 [facility] Comment on above: Performed By: #### L 501.79281, L500.4050, L501.9520, L503.6150, L500.4100, L506.1001, L506.0400, L100.0100, L503.6550 #### [facility] [address] [place], [address] Nucleated RBC (Bld) [#/Vol] 0 10*3/uL Normal 0-5 [facility] Comment on above: Performed By: #### L 501.29806, L500.4050, L501.9520, L503.6150, L500.4100, L506.1001, L506.0400, L100.0100, L503.6550 #### [facility] [address] [place], [address] Platelet mean volume (Bld) [Entitic vol] 9.9 fL Normal 6.2-12.0 [facility] Comment on above: Performed By: #### L 501.05756, L500.4050, L501.9520, L503.6150, L500.4100, L506.1001, L506.0400, L100.0100, L503.6550 #### [facility] [address] [place], [address] Platelets (Bld) [#/Vol] 270 10*3/uL Normal 150-450 [facility] Comment on above: Performed By: #### L 501.50593, L500.4050, L501.9520, L503.6150, L500.4100, L506.1001, L506.0400, L100.0100, L503.6550 #### [facility] [address] [place], [place], [id number] RBC (Bld) [#/Vol] 4.19 10*6/uL Low 4.2-5.4 [facility] Comment on above: Performed By: #### L 501.01737, L500.4050, L501.9520, L503.6150, L500.4100, L506.1001, L506.0400, L100.0100, L503.6550 #### [facility] [address] [place], [address] RDW SD 38.9 fl Normal 35.1-43.9 [facility] Comment on above: Performed By: #### L 501.22975, L500.4050, L501.9520, L503.6150, L500.4100, L506.1001, L506.0400, L100.0100, L503.6550 #### [facility] [address] [place], [place], [id number] WBC (Bld) [#/Vol] 6.9 10*3/uL Normal 4.4-11.0 [facility] Comment on above: Performed By: #### L 501.20686, L500.4050, L501.9520, L503.6150, L500.4100, L506.1001, L506.0400, L100.0100, L503.6550 #### [facility] [address] [place], [address] Calculated very low density lipoprotein (VLDL) cholesterol measurementOrdered By: Maria Dolores Celis on 01-05-2025 Calculated very low density lipoprotein (VLDL) cholesterol measurement 34 mg/dL 5-40 [facility] Carbon dioxide, total [Moles /volume] in Central venous bloodOrdered By: Maria Dolores Celis on 01-05-2025 CO2 [Moles/Vol] 25.0 mmol/L 21.0-32.0 [facility] Chloride assayOrdered By: Ra nilsa Celis on 01-05-2025 Chloride [Moles/Vol] 104 mmol/L 98-108 [facility] Comprehensive Metabolic Prof ilon 01-05-2025 Albumin [Mass/Vol] 4.4 g/dL Normal 3.5-5.0 [facility] Comment on above: Performed By: #### L 501.98880, L500.4050, L501.9520, L503.6150, L500.4100, L506.1001, L506.0400, L100.0100, L503.6550 #### [facility] [address] [place], [place], [id number] Albumin/Globulin [Mass ratio] 1.7 {ratio} Normal 0.9-2.4 [facility] Comment on above: Performed By: #### L 501.56442, L500.4050, L501.9520, L503.6150, L500.4100, L506.1001, L506.0400, L100.0100, L503.6550 #### [facility] [address] [place], [address] ALK PHOS 77 U/L Normal 35-104 [facility] Comment on above: Performed By: #### L 501.22459, L500.4050, L501.9520, L503.6150, L500.4100, L506.1001, L506.0400, L100.0100, L503.6550 #### [facility] [address] [place], [address] ALT [Catalytic activity/Vol] 30 U/L Normal <=34 [facility] Comment on above: Performed By: #### L 501.23342, L500.4050, L501.9520, L503.6150, L500.4100, L506.1001, L506.0400, L100.0100, L503.6550 #### [facility] [address] [place], [address] AST [Catalytic activity/Vol] 23 U/L Normal <=31 [facility] Comment on above: Performed By: #### L 501.69632, L500.4050, L501.9520, L503.6150, L500.4100, L506.1001, L506.0400, L100.0100, L503.6550 #### [facility] [address] [place], [address] Bilirubin [Mass/Vol] 0.29 mg/dL Normal 0.00-1.30 [facility] Comment on above: Performed By: #### L 501.95428, L500.4050, L501.9520, L503.6150, L500.4100, L506.1001, L506.0400, L100.0100, L503.6550 #### [facility] [address] [place], [address] BUN/CRE 30.2 RATIO High 10-20 [facility] Comment on above: Performed By: #### L 501.43134, L500.4050, L501.9520, L503.6150, L500.4100, L506.1001, L506.0400, L100.0100, L503.6550 #### [facility] [address] [place], [address] Calcium [Mass/Vol] 9.3 mg/dL Normal 7.6-11.0 [facility] Comment on above: Performed By: #### L 501.65512, L500.4050, L501.9520, L503.6150, L500.4100, L506.1001, L506.0400, L100.0100, L503.6550 #### [facility] [address] [place], [address] Chloride [Moles/Vol] 104 mmol/L Normal 98-108 [facility] Comment on above: Performed By: #### L 501.93948, L500.4050, L501.9520, L503.6150, L500.4100, L506.1001, L506.0400, L100.0100, L503.6550 #### [facility] [address] [place], [address] CO2 [Moles/Vol] 25.0 mmol/L Normal 21.0-32.0 [facility] Comment on above: Performed By: #### L 501.80873, L500.4050, L501.9520, L503.6150, L500.4100, L506.1001, L506.0400, L100.0100, L503.6550 #### [facility] [address] [place], [address] Creatinine [Mass/Vol] 0.63 mg/dL Low 0.70-1.20 [facility] Comment on above: Performed By: #### L 501.91461, L500.4050, L501.9520, L503.6150, L500.4100, L506.1001, L506.0400, L100.0100, L503.6550 #### [facility] [address] [place], [address] GAP 10 Normal 5-15 [facility] Comment on above: Performed By: #### L 501.57790, L500.4050, L501.9520, L503.6150, L500.4100, L506.1001, L506.0400, L100.0100, L503.6550 #### [facility] [address] [place], [place], [phone] (934) GFR/1.73 sq M.predicted among non-blacks MDRD (S/P/Bld) [Vol rate/Area] 107 mL/min/{1.73_m2} Normal >60 [facility] Comment on above: Result Comment: mL/m in/1.73m2 CKD-EPI Creatinine Equation (2020) Performed By: #### L 501.24235, L500.4050, L501.9520, L503.6150, L500.4100, L506.1001, L506.0400, L100.0100, L503.6550 #### [facility] [address] [place], [place], [id number] (783) Globulin (S) [Mass/Vol] 2.6 g/dL Normal 2.2-4.2 [facility] Comment on above: Performed By: #### L 501.18321, L500.4050, L501.9520, L503.6150, L500.4100, L506.1001, L506.0400, L100.0100, L503.6550 #### [facility] [address] [place], [place], [phone] (574) Glucose [Mass/Vol] 86 mg/dL Normal 70-99 [facility] Comment on above: Performed By: #### L 501.78982, L500.4050, L501.9520, L503.6150, L500.4100, L506.1001, L506.0400, L100.0100, L503.6550 #### [facility] [address] [place], [address] Potassium [Moles/Vol] 4.3 mmol/L Normal 3.3-5.1 [facility] Comment on above: Performed By: #### L 501.29592, L500.4050, L501.9520, L503.6150, L500.4100, L506.1001, L506.0400, L100.0100, L503.6550 #### [facility] [address] [place], [address] Sodium [Moles/Vol] 139 mmol/L Normal 133-145 [facility] Comment on above: Performed By: #### L 501.87544, L500.4050, L501.9520, L503.6150, L500.4100, L506.1001, L506.0400, L100.0100, L503.6550 #### [facility] [address] [place], [address] T PROT 7.0 g/dL Normal 5.9-8.4 [facility] Comment on above: Performed By: #### L 501.90329, L500.4050, L501.9520, L503.6150, L500.4100, L506.1001, L506.0400, L100.0100, L503.6550 #### [facility] [address] [place], [address] Urea nitrogen [Mass/Vol] 19 mg/dL Normal 4-19 [facility] Comment on above: Performed By: #### L 501.11844, L500.4050, L501.9520, L503.6150, L500.4100, L506.1001, L506.0400, L100.0100, L503.6550 #### [facility] [address] [place], [place], [id number] Eosinophil percentageOrdered By: Maria Dolores Celis on 01-05-2025 Eosinophils/100 WBC (Bld) 4.2 % 0-5 [facility] Erythrocyte distribution wid th ratioOrdered By: Maria Doloresjt Celis on 01-05-2025 Erythrocyte distribution width (RBC) [Ratio] 13.0 % 11.6-14.6 [facility] Erythrocyte distribution wid th standard deviationOrdered By: Maria Doloresjt Celis on 01-05-2025 Erythrocyte distribution width (RBC) [Ratio] 38.9 fl 35.1-43.9 [facility] Ferritinon 01-05-2025 Ferritin [Mass/Vol] 117 ng/mL Normal 22-378 [facility] Comment on above: Performed By: #### L 501.25041, L500.4050, L501.9520, L503.6150, L500.4100, L506.1001, L506.0400, L100.0100, L503.6550 ####[facility] [id number] [facility] [place], [address] Free T3on 01-05-2025 Free T3 [Mass/Vol] 3.6 pg/mL Normal 2.18-3.98 [facility] Comment on above: Performed By: #### L 501.25462, L500.4050, L501.9520, L503.6150, L500.4100, L506.1001, L506.0400, L100.0100, L503.6550 #### [facility] [facility] [address] [place], [address] Free [id number] By: Maria Dolores landaverde on 01-05-2025 Free T3 [Mass/Vol] 3.6 pg/mL 2.18-3.98 [facility] Glomerular filtration rate ( GFR) estimation/1.73 sq m using serum, plasma, or whole bOrdered By: Maria Dolores Celis on 01-05-2025 GFR/1.73 sq M.predicted among non-blacks MDRD (S/P/Bld) [Vol rate/Area] 107 mL/min/{1.73_m2} >60 [facility] Comment on above: mL/min/1.73m2 CKD-EP I Creatinine Equation (2020) Hematocrit Auto (Bld) [Volum e fraction]Ordered By: Maria Dolores Celis on 01-05-2025 Hematocrit (Bld) [Volume fraction] 35.0 % Low 37-47 [facility] Hemoglobin measurementOrdere d By: Maria Dolores Celis on 01-05-2025 Hemoglobin (Bld) [Mass/Vol] 12.1 g/dL 12.0-15.0 [facility] Immature granulocytes/100 WB C Auto (Bld)Ordered By: Maria Dolores Celis on 01-05-2025 Immature granulocytes/100 WBC (Bld) 0.300 % 0.0-0.9 [facility] Comment on above: IG% - Immature Granu locytes (promyelocytes, myelocytes and metamyelocytes) > 1% indicates that a LEFT SHIFT is Present. Ironon 01-05-2025 Iron [Mass/Vol] 81 ug/dL Normal 50-170 [facility] Comment on above: Performed By: #### L 501.56181, L500.4050, L501.9520, L503.6150, L500.4100, L506.1001, L506.0400, L100.0100, L503.6550 #### [facility] [address] [facility] [place], [address] Iron measurement (mass/mass) Ordered By: Maria Dolores Celis on 01-05-2025 Iron (Unsp spec) [Mass/Mass] 81 ug/dL 50-170 [facility] LDL calc ser/plasOrdered By: Maria Dolores Celis on 01-05-2025 Cholesterol in LDL [Mass/Vol] 73 mg/dL [facility] Comment on above: Hitcionmti=224-741 m g/dL & Higher Nzuw=556 mg/dL or greaterFriedwald Equation for LDL-C Laboratory - Chemistry and C hemistry - challengeOrdered By: Maria Dolores Celis on 01-05-2025 AST [Catalytic activity/Vol] 23 U/L <32 [facility] Lipid Profileon 01-05-2025 CHOL:HDL 3.77 Normal [facility] Comment on above: Performed By: #### L 501.01874, L500.4050, L501.9520, L503.6150, L500.4100, L506.1001, L506.0400, L100.0100, L503.6550 #### [facility] [address] [place], [address] Cholesterol [Mass/Vol] 145 mg/dL Normal <=200 [facility] Comment on above: Result Comment: Chol esterol level, Desirable <200 mg/dL Borderline high cholesterol 200-239 mg/dL High cholesterol >=240 mg/dL Recommendations of the NCEP Adult Treatment Panel for the following risk-cutoff thresholds for the [place] population. Performed By: #### L 501.37738, L500.4050, L501.9520, L503.6150, L500.4100, L506.1001, L506.0400, L100.0100, L503.6550 #### [facility] [address] [place], [address] Cholesterol in HDL [Mass/Vol] 39 mg/dL Low [facility] Comment on above: Result Comment: Sharona onal Cholesterol Education Program (NCEP) guidelines: <40 mg/dL: Low HDL-cholesterol (major risk factor for CHD) >= 60 mg/dL: High HDL-cholesterol (negative risk factor for CHD) HDL-cholesterol is affected by a number of factors, e.g. smoking, exercise, hormones, sex and age. Performed By: #### L 501.37507, L500.4050, L501.9520, L503.6150, L500.4100, L506.1001, L506.0400, L100.0100, L503.6550 #### [facility] [address] [place], [address] Cholesterol in LDL [Mass/Vol] 73 mg/dL Normal [facility] Comment on above: Result Comment: Bord wikwed=467-282 mg/dL Higher Bizp=036 mg/dL or greater Friedwald Equation for LDL-C Performed By: #### L 501.08838, L500.4050, L501.9520, L503.6150, L500.4100, L506.1001, L506.0400, L100.0100, L503.6550 #### [facility] [address] [place], [address] (734) Cholesterol in VLDL [Mass/Vol] 34 mg/dL Normal 5-40 [facility] Comment on above: Performed By: #### L 501.94450, L500.4050, L501.9520, L503.6150, L500.4100, L506.1001, L506.0400, L100.0100, L503.6550 #### [facility] [address] [place], [address] Triglyceride [Mass/Vol] 168 mg/dL Normal [facility] Comment on above: Result Comment: The drugs N-Acetylcysteine and Metamizole may falsely depress this assay. Normal range: <150 mg/dL Borderline High: 150-199 mg/dL High: 200-499 mg/dL Very High: >500 mg/dL Performed By: #### L 501.70401, L500.4050, L501.9520, L503.6150, L500.4100, L506.1001, L506.0400, L100.0100, L503.6550 #### [facility] [address] [place], [place], [id number] (009) MCV (mean corpuscular volume ) determinationOrdered By: Maria Dolores Celis on 01-05-2025 MCV (RBC) [Entitic vol] 83.5 fL 81-99 [facility] Mean corpuscular hemoglobin (MCH) determinationOrdered By: Maria Dolores Celis on 01-05-2025 MCH (RBC) [Entitic mass] 28.9 pg 27.0-32.0 [facility] Mean corpuscular hemoglobin concentration (MCHC) determinationOrdered By: Maria Dolores Celis on 01-05-2025 MCHC (RBC) [Mass/Vol] 34.6 g/dL 32-36 [facility] Mean platelet volume determi nationOrdered By: Maria Dolores Celis on 01-05-2025 Platelet mean volume (Bld) [Entitic vol] 9.9 fL 6.2-12.0 [facility] Monocyte percentageOrdered B y: Maria Dolores Celis on 01-05-2025 Monocytes/100 WBC (Bld) 8.3 % 0-10 [facility] Neutrophil percentageOrdered By: Maria Dolores Celis on 01-05-2025 Neutrophils/100 WBC (Bld) 49.1 % 47-70 [facility] Nucleated red blood cell per centageOrdered By: Maria Dolores Celis on 01-05-2025 Nucleated RBC/100 WBC (Bld) [Ratio] 0 % 0-5 [facility] Platelet countOrdered By: Ra nilsa Celis on 01-05-2025 Platelets (Bld) [#/Vol] 270 10*3/uL 150-450 [facility] Potassium measurement (mass/ volume)Ordered By: Maria Dolores Celis on 01-05-2025 Potassium (Unsp spec) [Mass/Vol] 4.3 mmol/L 3.3-5.1 [facility] RBC Auto (Bld) [#/Vol]Ordere d By: Maria Dolores Celis on 01-05-2025 RBC (Bld) [#/Vol] 4.19 10*6/uL Low 4.2-5.4 [facility] Screening total cholesterol/ high density lipoprotein (HDL) cholesterol ratioOrdered By: Maria Dolores Celis on 01-05-2025 Cholesterol.total/Choles terol in HDL [Mass ratio] 3.77 {ratio} [facility] Serum creatinine measurement (mass/volume)Ordered By: Maria Dolores Celis on 01-05-2025 Creatinine [Mass/Vol] 0.63 mg/dL Low 0.70-1.20 [facility] Serum globulin measurementOr dered By: Maria Dolores Celis on 01-05-2025 Globulin (S) [Mass/Vol] 2.6 g/dL 2.2-4.2 [facility] Serum glucose measurement (m ass/volume)Ordered By: Maria Dolores Celis on 01-05-2025 Glucose [Mass/Vol] 86 mg/dL 70-99 [facility] Serum or plasma alanine patterson otransferase (ALT) measurementOrdered By: Maria Dolores Celis on 01-05-2025 ALT [Catalytic activity/Vol] 30 U/L <35 [facility] Serum or plasma albumin pilo urement (mass/volume)Ordered By: Maria Dolores Celis on 01-05-2025 Albumin [Mass/Vol] 4.4 g/dL 3.5-5.0 [facility] Serum or plasma albumin/glob ulin mass ratioOrdered By: Maria Dolores Celis on 01-05-2025 Albumin/Globulin [Mass ratio] 1.7 {ratio} 0.9-2.4 [facility] Serum or plasma alkaline elizabeth sphatase measurementOrdered By: Maria Dolores Celis on 01-05-2025 ALP [Catalytic activity/Vol] 77 U/L 35-104 [facility] Serum or plasma calcium pilo urement (mass/volume)Ordered By: Maria Dolores Celis on 01-05-2025 Calcium [Mass/Vol] 9.3 mg/dL 7.6-11.0 [facility] Serum or plasma cholesterol in HDL measurement (mass/volume)Ordered By: Maria Dolores Celis on 01-05-2025 Cholesterol in HDL [Mass/Vol] 39 mg/dL Low >40 [facility] Comment on above: National Cholesterol Education Program (NCEP) guidelines:<40 mg/dL: Low HDL-cholesterol (major risk factor for CHD)>= 60 mg/dL: High HDL-cholesterol (negative risk factor for CHD)HDL-cholesterol is affected by a number of factors, e.g. smoking, exercise, hormones, sex and age. Serum or plasma cholesterol measurement (mass/volume)Ordered By: Maria Dolores Celis on 01-05-2025 Cholesterol [Mass/Vol] 145 mg/dL <201 [facility] Comment on above: Cholesterol level, D esirable <200 mg/dLBorderline high cholesterol 200-239 mg/dLHigh cholesterol >=240 mg/dLRecommendations of the NCEP Adult Treatment Panel for the following risk-cutoff thresholds for the [place] population. Serum or plasma ferritin larry surement (mass/volume)Ordered By: Maria Dolores Celis on 01-05-2025 Ferritin [Mass/Vol] 117 ng/mL 22-378 [facility] Serum or plasma urea nitroge n measurement (mass/volume)Ordered By: Maria Dolores Celis on 01-05-2025 Urea nitrogen [Mass/Vol] 19 mg/dL 4-19 [facility] Sodium levelOrdered By: Lakesha Celis on 01-05-2025 Sodium [Moles/Vol] 139 mmol/L 133-145 [facility] T4 Free Directon 01-05-2025 T4 FREE DIRECT 1.10 ng/dL Normal 0.76-1.46 [facility] Comment on above: Performed By: #### L 501.25895, L500.4050, L501.9520, L503.6150, L500.4100, L506.1001, L506.0400, L100.0100, L503.6550 ####[facility] [id number] [place], [place], [id number] T4 freeOrdered By: Maria Dolores landaverde on 01-05-2025 Free T4 [Mass/Vol] 1.10 ng/dL 0.76-1.46 [facility] TSH DL <= 0.005 mIU/L QnOrde red By: Maria Dolores Celis on 01-05-2025 TSH Qn 1.170 uIU/mL 0.300-4.200 [facility] Thyroid Stim Hormone (TSH)on 01-05-2025 TSH 1.170 uIU/mL Normal 0.300-4.200 [facility] Comment on above: Performed By: #### L 501.18362, L500.4050, L501.9520, L503.6150, L500.4100, L506.1001, L506.0400, L100.0100, L503.6550 #### [facility] [address] [place], [address] Total proteinOrdered By: Newton Celis on 01-05-2025 Protein [Mass/Vol] 7.0 g/dL 5.9-8.4 [facility] Triglycerides measurementOrd ered By: Maria Dolores Rojasgar on 01-05-2025 Triglyceride [Mass/Vol] 168 mg/dL <199 [facility] Comment on above: The drugs N-Acetylcy steine and Metamizole may falsely depress this assay. Normal range: <150 mg/dLBorderline High: 150-199 mg/dLHigh: 200-499 mg/dLVery High: >500 mg/dL Vitamin D,25 Hydroxyon 01-05 Vitamin D 25-OH 39.5 ng/mL Normal 30-100 [facility] Comment on above: Result Comment: Pennie min D Status Deficiency: <20 ng/mL (50nmol/L) Insufficiency: 20-30 ng/mL (50-75 nmol/L) Sufficiency: 30-100 ng/mL (75-250 nmol/L) Toxicity: >100 ng/mL (>250 nmol/L) Performed By: #### L 501.85185, L500.4050, L501.9520, L503.6150, L500.4100, L506.1001, L506.0400, L100.0100, L503.6550 ####[facility] [address] [place], [address] White blood cell (WBC) count Ordered By: Maria Dolores Rojasgar on 01-05-2025 WBC (Bld) [#/Vol] 6.9 10*3/uL 4.4-11.0 [facility] Echocardiogram study reportO rdered By: Xander Pennington on 01-03-2025 Study report [facility] [address] [place] [address] Echo Complete 01/01/25 1113 MR#: [id number] Acct: [id number] Name: NICKIE STUBBS HERNANDEZ Rep #:[id number] : 1970 54 From: Xander stroud MD Attending Dr: Dr. Nnamdi Del Real MD Status: REG CLI Ordering Dr: Nnamdi Del Real MD Date: 01/01/25 Location: [facility] Sex: F C Admitted: Reason For Study Reason For Study: Arrhythmia Procedure This was a 2D Doppler, Color Flow transthoracic echocardiogram. Myocardial strain analysis was performed in this exam to aid in the assessment of cardiac function. Exam performed in department. Left Ventricle Normal LV size. The global longitudinal strain = -18.4 % (normal). The estimatedejection fraction is 70 %. No evidence for diastolic dysfunction. No regional wall motion abnormalities noted. Right Ventricle Normal RV size. Normal systolic function. Atria The left and right atria are normal. No doppler evidence for ASD. Mitral Valve There is no mitral valve stenosis. No mitral valve insufficiency. Tricuspid Valve There is no tricuspid stenosis. Trivial tricuspid valve insufficiency. Unable toestimate RV systolic pressure due to insufficient tricuspid regurgitant envelope. Aortic Valve Trisinus/trileaflet aortic valve. There is no aortic stenosis. Mild (1+) aortic valve insufficiency. Pulmonic Valve There is no pulmonic valvular stenosis. No pulmonic valve insufficiency. Great Vessels Normal sized aortic root. Pericardium/Pleural No pericardial effusion. MMode/2D Measurements & Calculations LVIDd: 4.4 cm IVSd: 1.2 cm Ao root diam: 3.9 cm LVIDs: 2.7 cm LVPWd: 0.97 cm RVDd: 3.3 cm FS: 37.5 % LAV(MOD-bp): 47.2 ml LVAd ap4: 29.2 cm2 SV(MOD-sp4): 56.0 ml LAV(MOD-bp) Indexed: 24.2 ml/m2 LVLd ap4: 7.9 cm SI(MOD-sp4): 28.7 ml/m2 LAV(MOD-sp2): 43.5 ml EDV(MOD-sp4): 86.1 ml LAV(MOD-sp4): 45.4 ml EDV(sp4-el): 91.5 ml LVAs ap4: 15.3 cm2 LVLs ap4: 6.6 cm ESV(MOD-sp4): 30.1 ml ESV(sp4-el): 29.7 ml EF(MOD-sp4): 65.0 % EF(sp4-el): 67.5 % SV(sp4-el): 61.8 ml LA A4 area: 17.9 cm2 RA A4 area: 12.8 cm2 TAPSE: 1.8 cm Time Measurements MV dec time: 0.18 sec Doppler Measurements & Calculations MV E max cory: 60.7 cm/sec Lat Peak E' Cory: 12.8 cm/sec Med Peak E' Cory: 8.0 cm/sec MV A max cory: 74.6 cm/sec E/E' lat: 4.8 E/E' med: 7.6 MV E/A: 0.81 MV V2 max: 82.0 cm/sec MV P1/2t max cory: 76.8 cm/sec Ao V2 max: 134.1 cm/sec MV max P.7 mmHg MV P1/2t: 68.3 msec Ao max P.2 mmHg MV V2 mean: 51.0 cm/sec MV dec slope: 329.1 cm/sec2 Ao V2 mean: 92.9 cm/sec MV mean P.2 mmHg Ao mean P.0 mmHg MV V2 VTI: 19.8 cm MVA(P1/2t): 3.2 cm2 Ao V2 VTI: 29.4 cm AV (velocity ratio): 0.79 ____ AI max cory: 449.6 cm/sec LV V1 max: 114.9 cm/sec PA V2 max: 103.9 cm/sec AI max P.9 mmHg LV V1 max P.3 mmHg PA V2 mean: 74.4 cm/sec AI dec slope: 357.8 cm/sec2 LV V1 mean P.3 mmHg AI P1/2t: 368.0 msec LV V1 mean: 85.0 cm/sec LV V1 VTI: 23.2 cm TR max cory: 207.5 cm/sec TR max P.3 mmHg ECHO/Echo Complete Interpretation Summary The estimated ejection fraction is 70 %. No evidence for diastolic dysfunction. Mild (1+) aortic valve insufficiency. Ordering Physician: Nnamdi Del Real Referring Physician: Nnamdi Del Real Performed By: Boo Osorio RCS 01/03/251914 Date _ Xander Pennington MD CC: Dr. Sonal Botello DO; Dr. Nnamdi Del Real MD ~ Date Dictated: 01/01/251112 Date Transcribed: 01/03/251914 Rn Transport: Signed [facility] Work Phone: Echo Completeon 01-01-2025 Echo Complete [facility] [address] [place] [address]. [place] [address] Echo Complete 01/01/251112 MR#: [id number] Acct: [id number] Name: NICKIE STUBBS Rep #: [id number] : 1970 54 From: Xander Pennington MD Attending Dr: Dr. Nnamdi Del Real MD Status: RE G CLI Ordering Dr: Nnamdi Del Real MD Date: 01/01/25 Location: [facility] Sex: F C Admitted: Reason For Study Reason For Study: Arrhythmia Procedure This was a 2D Doppler, Color Flow transthoracic echocardiogram. Myocardial strain analysis was performed in this exam to aid in the assessment of cardiac function. Exam performed in department. Left Ventricle Normal LV size. The global longitudinal strain = -18.4 % (normal). The estimated ejection fraction is 70 %. No evidence for diastolic dysfunction. No regional wall motion abnormalities noted. Right Ventricle Normal RV size. Normal systolic function. Atria The left and right atria are normal. No doppler evidence for ASD. Mitral Valve There is no mitral valve stenosis. No mitral valve insufficiency. Tricuspid Valve There is no tricuspid stenosis. Trivial tricuspid valve insufficiency. Unable to estimate RV systolic pressure due to insufficient tricuspid regurgitant envelope. Aortic Valve Trisinus/trileaflet aortic valve. There is no aortic stenosis. Mild (1+) aortic valve insufficiency. Pulmonic Valve There is no pulmonic valvular stenosis. No pulmonic valve insufficiency. Great Vessels Normal sized aortic root. Pericardium/Pleural No pericardial effusion. MMode/2D Measurements Calculations LVIDd: 4.4 cm IVSd: 1.2 cm Ao root diam: 3.9 cm LVIDs: 2.7 cm LVPWd: 0.97 cm RVDd: 3.3 cm FS: 37.5 % LAV(MOD-bp): 47.2 ml LVAd ap4: 29.2 cm2 SV(MOD-sp4): 56.0 ml LAV(MOD-bp) Indexed: 24.2 ml/m2 LVLd ap4: 7.9 cm SI(MOD-sp4): 28.7 ml/m2 LAV(MOD-sp2): 43.5 ml EDV(MOD-sp4): 86.1 ml LAV(MOD-sp4): 45.4 ml EDV(sp4-el): 91.5 ml LVAs ap4: 15.3 cm2 LVLs ap4: 6.6 cm ESV(MOD-sp4): 30.1 ml ESV(sp4-el): 29.7 ml EF(MOD-sp4): 65.0 % EF(sp4-el): 67.5 % SV(sp4-el): 61.8 ml LA A4 area: 17.9 cm2 RA A4 area: 12.8 cm2 TAPSE: 1.8 cm Time Measurements MV dec time: 0.18 sec Doppler Measurements Calculations MV E max cory: 60.7 cm/sec Lat Peak E' Cory: 12.8 cm/sec Med Peak E' Cory: 8.0 cm/sec MV A max cory: 74.6 cm/sec E/E' lat: 4.8 E/E' med: 7.6 MV E/A: 0.81 MV V2 max: 82.0 cm/sec MV P1/2t max cory: 76.8 cm/sec Ao V2 max: 134.1 cm/sec MV max P.7 mmHg MV P1/2t: 68.3 msec Ao max P.2 mmHg MV V2 mean: 51.0 cm/sec MV dec slope: 329.1 cm/sec2 Ao V2 mean: 92.9 cm/sec MV mean P.2 mmHg Ao mean P.0 mmHg MV V2 VTI: 19.8 cm MVA(P1/2t): 3.2 cm2 Ao V2 VTI: 29.4 cm AV (velocity ratio): 0.79 AI max cory: 449.6 cm/sec LV V1 max: 114.9 cm/sec PA V2 max: 103.9 cm/sec AI max P.9 mmHg LV V1 max P.3 mmHg PA V2 mean: 74.4 cm/sec AI dec slope: 357.8 cm/sec2 LV V1 mean P.3 mmHg AI P1/2t: 368.0 msec LV V1 mean: 85.0 cm/sec LV V1 VTI: 23.2 cm TR max cory: 207.5 cm/sec TR max P.3 mmHg ECHO/Echo Complete Interpretation Summary The estimated ejection fraction is 70 %. No evidence for diastolic dysfunction. Mild (1+) aortic valve insufficiency. Ordering Physician: Nnamdi Del Real Referring Physician: Nnamdi Del Real Performed By: Boo Osorio RCS 01/03/251914 Date Xander Pennington MD CC: Dr. Sonal Botello DO; Dr. Nnamdi Del Real MD Date Dictated: 01/01/25 1113 Date Transcribed: 01/03/251914 Rn Transport: Signed Normal [facility] Cardiology Visit Reporton Cardiology Visit Report [facility] [address] [place] [address] OFFICE VISIT Date of Service: 12/03/24 MR#: [id number] Acct: [id number] Name: NICKIE STUBBS HERNANDEZ Rep #: [id number] : 1970 Provider: Dr. Nnamdi beyer MD Age/Sex: 54/F Location: [facility] Status: Signed with Addenda ADDENDUM by Dr. Nnamdi Del Real MD on 12/03/24 at 1524 HPI History of Present Illness Details: ECG in the office today shows normal sinus rhythm at 82 bpm and is normal. Assessment and Plan Assessment and Plan (1) Heart palpitations: Status: Acute Orders: Orders 12 Lead EKG performed by [facility] Today R00.0 - Tachycardia, unspecified Echo Complete 3 Weeks R00.2 - Palpitations 30 Day Event Recorder Preventi Today R00.2 - Palpitations Plan Details Goals Barriers: Goals Decrease pain Improve alignment Improve workability Decrease spasm Target Due Date 05/03/22 Barriers Carrying young children Follow Up: 3 Years (As needed) 12/03/24 1524 Date Nnamdi Del Real MD cc: Dr. 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 She is here for new patient visit concerning palpitations. Patient carries a history of remote Holter monitor back in March 2024 that showed supraventricular ectopy with 2 runs 1 of which lasted 69 beats with a maximum heart rate of 128 bpm. The patient reports that these episodes of palpitations last seconds and resolve spontaneously. They are not associated with syncope or near syncope. They are associated with times of stressful situations a daughter had a miscarriage about a month ago and they were very prominent during that timeframe. She also had an episode carrying a dresser up to stairwell with her very recently. Her primary care physician had prescribed atenolol which did improve the palpitations but it also had some mild fatigability and slowed her down. She is currently not taking it and not having any significant palpitations. We do not have a definitive diagnosis on these palpitations. She does have an iWatch but it does not record a rhythm strip. It does check her heart rate. The patient does have a family history of coronary artery disease but she is not hypertensive not hyperlipidemic she has never smoked and she is not diabetic. She actually had a calcium scoring done in 2022 which was 0. The patient does have obstructive sleep apnea she is hoahaoism with her CPAP she has a history of Cynthia's thyroiditis treated by endocrinology with thyroid replacement. She has not had a change in her thyroid replacement therapy in several years. Intake Vital Signs 10/04/24 11:22 12/03/24 14:26 Height 5 ft 6 in 5 ft 6 in Weight: 192 lb 188 lb BMI 30.9 30.3 BP 112/78 120/83 H Blood Pressure Location Lt brachial Lt brachial Position Sitting Sitting Respiration 16 16 Pulse 78 84 Pulse Source Monitor Monitor Temp 98.0 F Pulse Oximetry (%) 98 97 Oxygen Delivery Method room air room air Intake Visit Reasons: SVT/tachycardia Contract Runner Required: No Accompanied by: Is patient in pain?: No Allergies No Known Allergies Allergy (Verified 12/03/24 14:26) Medications ???Medication ???Instructions ???Recorded ???Confirmed ???Type pantoprazole 40 mg granules 40 mg PO QHS 02/24/19 12/03/24 His tory delayed-release for susp in packet (Protonix) Bacillus coagulans 800 million 1 cell PO DAILY 02/02/21 12/03/24 History cell tablet (Digestive Advantage Probiotics-Prebiotic) multivitamin 1 tab PO DAILY 02/27/21 12/03/24 H istory bupropion HCl 300 mg 24 hr tablet, 300 mg PO QAM 01/25/23 12/03/24 History extended release cholecalciferol (vitamin D3) 50 50 mcg PO DAILY 01/25/23 12/03/24 History mcg (2,000 unit) capsule omega 8-yyh-qwh-fish oil 300 1 cap PO QDAY 01/24/24 12/03/24 Hi story mg-1,000 mg capsule (Fish Oil) tirzepatide (weight loss) 10 10 mg subcut QWEEK 01/24/24 History mg/0.5 mL subcutaneous pen injector (Zepbound) levothyroxine 112 mcg tablet 112 mcg PO DAILY #90 tabs 01/27/24 12/03/24 Rx liothyronine 5 mcg tablet 5 mcg PO BID #180 tabs 01/27/24 Rx ferrous sulfate 325 mg (65 mg 325 mg PO QDAY 10/04/24 12/03/24 H istory iron) tablet (iron) citalopram 40 mg tablet 40 mg PO QDAY 12/03/24 12/03/24 Hi story lorazepam 1 mg tablet 1 mg PO Q6 PRN 12/03/24 12/03/24 H istory Have you fallen in the past year?: No [facility] Medical History Prediabetes History of Holter monitoring Gastric reflux Non-smoker CPAP (continuo (more content not included)... Normal [facility] Urine Cultureon 10-07-2024 [facility] Mixed Gram Pos Gram Neg Org [place] Count 11,000-25,000 MIXC Mixed contaminants. Submit a new specimen if indicated. Normal [facility] Comment on above: Performed By: #### L 400.0001, M1 ####[facility] [id number] [place], [address] Urinalysis, Completeon 10-05 EPI,SQUAMOUS 0-5 SEEN Normal 5-10 [facility] Comment on above: Order Comment: COLOR OF URINE MAY AFFECT DIPSTICK RESULTS.CURRICULUM SUPERVISOR TO SPECIFY Performed By: #### L 400.0001, M100.0 ####[facility] [address] [place], [address] Mucus Ql (Urine sed) 1+ /hpf Normal [facility] Comment on above: Order Comment: COLOR OF URINE MAY AFFECT DIPSTICK RESULTS.CURRICULUM SUPERVISOR TO SPECIFY Performed By: #### L 400.0001, M100.2200 ####[facility] [address] [place], [address] RBC 0-5 SEEN Normal 0-5 [facility] Comment on above: Order Comment: COLOR OF URINE MAY AFFECT DIPSTICK RESULTS.CURRICULUM SUPERVISOR TO SPECIFY Performed By: #### L 400.0001, M100.2200 ####[facility] [address] [place], [address] WBC 50-100 SEEN Normal 0-5 [facility] Comment on above: Order Comment: COLOR OF URINE MAY AFFECT DIPSTICK RESULTS.CURRICULUM SUPERVISOR TO SPECIFY Performed By: #### L 400.0001, M100.2200 ####[facility] [address] [place], [address] BACTERIA 0 SEEN Normal None Seen [facility] Comment on above: Order Comment: COLOR OF URINE MAY AFFECT DIPSTICK RESULTS.CURRICULUM SUPERVISOR TO SPECIFY Performed By: #### L 400.0001, M100.2200 ####[facility] [address] [place], [address] Bilirubin Test strip Ql (U)O rdered By: Florencio Wise on 10-04-2024 Bilirubin Ql (U) 3 mg/dL High Negative [facility] Comment on above: COLOR OF URINE MAY A FFECT DIPSTICK RESULTS. Ketones Test strip Ql (U)Ord ered By: Florencio Wise on 10-04-2024 Ketones Ql (U) Negative Negative [facility] Microscopic analysis of urin e for red blood cells (RBC)Ordered By: Florencio Wise on 10-04-2024 Microscopic analysis of urine for red blood cells (RBC) 0-5 SEEN /hpf 0-5 [facility] Mucus LM Ql (Urine sed)Order ed By: Florencio Wise on 10-04-2024 Mucus Ql (Urine sed) 1+ /hpf [facility] Nitrite Test strip Ql (U)Ord ered By: Florencio Wise on 10-04-2024 Nitrite Ql (U) Positive High Negative [facility] Protein Test strip Ql (U)Ord ered By: Florencio Wise on 10-04-2024 Protein Ql (U) 15 mg/dl High Negative [facility] Squamous epithelial cells de tection in urine sediment by light microscopyOrdered By: Florencio Wise on 10-04-2024 Epithelial cells.squamous LM Ql (Urine sed) 0-5 SEEN /hpf 5-10 [facility] Urgent Care Visit Reporton 0 10-04-2024 Urgent Care Visit Report [facility] [address], [address] [place] [address] OFFICE VISIT Date of Service: 10/04/24 MR#: [id number] Acct: [id number] Name: NICKIE STUBBS HERNANDEZ Rep #: [id number] : 1970 Provider: JESU das Age/Sex: 54/F Location: [facility] Status: Signed Intake Vital Signs 01/24/24 08:22 10/04/24 11:22 Height 5 ft 6 in 5 ft 6 in Weight: 192 lb BMI 30.9 BP 112/78 Blood Pressure Location Lt brachial Position Sitting Respiration 16 Pulse 78 Pulse Source Monitor Temp 98.0 F Temp Source Oral Pulse Oximetry (%) 98 Oxygen Delivery Method room air Intake Visit Reasons: CONCERN FOR UTI Contract Runner Required: No Is patient in pain?: No Allergies No Known Allergies Allergy (Verified 10/04/24 11:10) Medications ???Medication ???Instructions ???Recorded ???Confirmed ???Type pantoprazole 40 mg granules 40 mg PO QHS 02/24/19 10/04/24 His tory delayed-release for susp in packet (Protonix) Bacillus coagulans 800 million 1 cell PO DAILY 02/02/21 10/04/24 History cell tablet (Digestive Advantage Probiotics-Prebiotic) multivitamin 1 tab PO DAILY 02/27/21 10/04/24 H istory bupropion HCl 300 mg 24 hr tablet, 300 mg PO QAM 01/25/23 10/04/24 History extended release cholecalciferol (vitamin D3) 50 50 mcg PO DAILY 01/25/23 10/04/24 History mcg (2,000 unit) capsule omega 1-iqn-efc-fish oil 300 1 cap PO QDAY 01/24/24 10/04/24 Hi story mg-1,000 mg capsule (Fish Oil) tirzepatide (weight loss) 10 10 mg subcut QWEEK 01/24/24 History mg/0.5 mL subcutaneous pen injector (Zepbound) levothyroxine 112 mcg tablet 112 mcg PO DAILY #90 tabs 01/27/24 10/04/24 Rx liothyronine 5 mcg tablet 5 mcg PO BID #180 tabs 01/27/24 Rx citalopram 10 mg tablet 20 mg PO QPM 10/04/24 10/04/24 His tory ferrous sulfate 325 mg (65 mg 325 mg PO QDAY 10/04/24 10/04/24 H istory iron) tablet (iron) nitrofurantoin 100 mg PO Q12H 7 days #14 caps 09/2310/04/24 Rx monohydrate/macrocrys tals 100 mg capsule (Macrobid) Nurse's Note: Pt states this morning she woke up w/ dysuria, urinary frequency, urgency, hesitancy, retention and pelvic pressure. Pt took azo this morning which is helping sx's. Pt has not had a uti in a long time. Pt denies urinary incontinence. POC attempted but would be skewed due to azo. MOD non hemolyzed blood, and moderate leuks noted. 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 Cholecystectomy planned Tonsillectomy planned Thyroid disease GERD (gastroesophageal reflux disease) Headache Gallstones Hypothyroid Fibroids Depression Anxiety PCOS (polycystic ovarian syndrome) Surgical History History of hernia surgery History of tonsillectomy H/O sinus surgery Hernia History of cholecystectomy Family History Father Heart disease Grandmother Breast cancer Colon cancer Aunt Colon cancer Mother COPD (chronic obstructive pulmonary disease) Other Anxiety Cancer Depression High cholesterol Myocardial infarction Suicide Thyroid disorder Social History number of children: 3 current occupational status: employed current occupation: [employer] Smoking Status: Never smoker alcohol intake: never substance use type: does not use what type of physical activity do you participate in: walking frequency: 3-4 times per week seatbelt use: always do you feel safe at home: Yes 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 She states burning with urination, urinary frequency, urinary urgency, urinary retention, suprapubic fullness sensation, and pain with urination. She states this started today. She denies fever, chills, or bodyaches. ROS Const Constitutional: No body ache, chills, excessive sweating, fatigue, fever(s), frequent falls, headache(s), snoring, weakness, sleep problems or change in appetite Eyes Eyes: No blurry vision, change in vision, eye pain or Light sensitivity ENT ENT: No abnormal hearing, ear or mastoid pain, tinnitus, nasal congestion, headache(s), neck pain or sore throat Resp Respiratory: No cough, shortness of breath, snoring or wheezing Cardio Cardiology: No chest pain at rest, chest (more content not included)... Normal [facility] Urine clarityOrdered By: Eder Wise on 10-04-2024 Clarity (U) Sl. Cloudy Clear [facility] Urine color determinationOrd ered By: Florencio Wise on 10-04-2024 Color (U) Estefani Yellow [facility] Urine cultureOrdered By: Eder Wise on 10-04-2024 Bacteria identified Cx Nom (U) Mixed Gram Pos & Gram Neg Org Abnormal [facility] Urine glucose detectionOrder ed By: Florencio Wise on 10-04-2024 Glucose Ql (U) Normal mg/dl Normal [facility] Urine leukocyte esterase det ection by dipstickOrdered By: Florencio Wise on 10-04-2024 Leukocyte esterase Test strip Ql (U) 500 /ul High Negative [facility] Urine pHOrdered By: Florencio das on 10-04-2024 pH (U) 6.0 [pH] 5.0 - 8.0 [facility] Urine sediment bacteria coun t by microscopy (number/high power field)Ordered By: Florencio Wise on 10-04-2024 Bacteria LM.HPF (Urine sed) [#/Area] 0 /[HPF] None Seen [facility] Urine specific gravity measu rementOrdered By: Florencio Wise on 10-04-2024 Specific gravity (U) [Rel density] 1.025 1.002-1.030 [facility] Urine urobilinogen measureme ntOrdered By: Florencio Wise on 10-04-2024 Urobilinogen Ql (U) 4 mg/dl High Normal [facility] White blood cell countOrdere d By: Florencio Wise on 10-04-2024 White blood cell count 50-100 SEEN /hpf 0-5 [facility] Absolute lymphocyte countOrd ered By: Maria Dolores Celis on 09-16-2024 Lymphocytes Auto (Unsp spec) [#/Vol] 2.18 10*3/uL 0.83-4.51 [facility] Absolute neutrophil countOrd ered By: Maria Dolores Celis on 09-16-2024 Neutrophils (Bld) [#/Vol] 3.1 10*3/uL 2.0-7.7 [facility] Anion gap in Serum or Plasma Ordered By: Maria Dolores Celis on 09-16-2024 Anion gap [Moles/Vol] 11 mmol/L 5-15 [facility] Automated lymphocyte count a s percentage of total leukocytesOrdered By: Maria Dolores Celis on 09-16-2024 Lymphocytes/100 WBC Auto (Unsp spec) 36.8 % 19-41 [facility] BUN/creatinine ratioOrdered By: Maria Dolores Celis on 09-16-2024 Urea nitrogen/Creatinine [Mass ratio] 34.4 mg/mg High 10-20 [facility] Basophil percentageOrdered B y: Maria Dolores Celis on 09-16-2024 Basophils/100 WBC (Bld) 0.7 % 0-1 [facility] Bilirubin, totalOrdered By: Maria Dolores Celis on 09-16-2024 Bilirubin [Mass/Vol] 0.27 mg/dL 0.00-1.30 [facility] CBC W/Diff, Automatedon 08-30-2024 Absolute Lymph 2.18 X10 3/uL Normal 0.83-4.51 [facility] Comment on above: Performed By: #### L 506.1001, L503.6550, L503.6150, L500.4050, L100.0100 ####[facility] [address] [place], [address] Absolute Neut 3.1 X10 3/uL Normal 2.0-7.7 [facility] Comment on above: Performed By: #### L 506.1001, L503.6550, L503.6150, L500.4050, L100.0100 ####[facility] [address] [place], [address] Basophils/100 WBC (Bld) 0.7 % Normal 0-1 [facility] Comment on above: Performed By: #### L 506.1001, L503.6550, L503.6150, L500.4050, L100.0100 ####[facility] [address] [place], [address] Eosinophils/100 WBC (Bld) 2.5 % Normal 0-5 [facility] Comment on above: Performed By: #### L 506.1001, L503.6550, L503.6150, L500.4050, L100.0100 ####[facility] [address] [place], [address] Erythrocyte distribution width (RBC) [Ratio] 12.5 % Normal 11.6-14.6 [facility] Comment on above: Performed By: #### L 506.1001, L503.6550, L503.6150, L500.4050, L100.0100 ####[facility] [address] [place], [address] Hematocrit (Bld) [Volume fraction] 38.3 % Normal 37-47 [facility] Comment on above: Performed By: #### L 506.1001, L503.6550, L503.6150, L500.4050, L100.0100 ####[facility] [address] [place], [address] Hemoglobin (Bld) [Mass/Vol] 12.6 g/dL Normal 12.0-15.0 [facility] Comment on above: Performed By: #### L 506.1001, L503.6550, L503.6150, L500.4050, L100.0100 ####[facility] [address] [place], [address] IG% 0.200 Normal 0.0-0.9 [facility] Comment on above: Result Comment: IG% - Immature Granulocytes (promyelocytes, myelocytes and metamyelocytes) > 1% indicates that a LEFT SHIFT is Present. Performed By: #### L 506.1001, L503.6550, L503.6150, L500.4050, L100.0100 ####[facility] [address] [place], [address] Lymphocytes/100 WBC (Bld) 36.8 % Normal 19-41 [facility] Comment on above: Performed By: #### L 506.1001, L503.6550, L503.6150, L500.4050, L100.0100 ####[facility] [address] [place], [address] MCH (RBC) [Entitic mass] 28.2 pg Normal 27.0-32.0 [facility] Comment on above: Performed By: #### L 506.1001, L503.6550, L503.6150, L500.4050, L100.0100 ####[facility] [address] [place], [address] MCHC (RBC) [Mass/Vol] 32.9 g/dL Normal 32-36 [facility] Comment on above: Performed By: #### L 506.1001, L503.6550, L503.6150, L500.4050, L100.0100 ####[facility] [address] [place], [address] MCV (RBC) [Entitic vol] 85.7 fL Normal 81-99 [facility] Comment on above: Performed By: #### L 506.1001, L503.6550, L503.6150, L500.4050, L100.0100 ####[facility] [address] [place], [address] Monocytes/100 WBC (Bld) 7.8 % Normal 0-10 [facility] Comment on above: Performed By: #### L 506.1001, L503.6550, L503.6150, L500.4050, L100.0100 ####[facility] [address] [place], [address] Neutrophils/100 WBC (Bld) 52.0 % Normal 47-70 [facility] Comment on above: Performed By: #### L 506.1001, L503.6550, L503.6150, L500.4050, L100.0100 ####[facility] [address] [place], [address] Nucleated RBC (Bld) [#/Vol] 0 10*3/uL Normal 0-5 [facility] Comment on above: Performed By: #### L 506.1001, L503.6550, L503.6150, L500.4050, L100.0100 ####[facility] [address] [place], [address] Platelet mean volume (Bld) [Entitic vol] 10.3 fL Normal 6.2-12.0 [facility] Comment on above: Performed By: #### L 506.1001, L503.6550, L503.6150, L500.4050, L100.0100 ####[facility] [address] [place], [address] Platelets (Bld) [#/Vol] 282 10*3/uL Normal 150-450 [facility] Comment on above: Performed By: #### L 506.1001, L503.6550, L503.6150, L500.4050, L100.0100 ####[facility] [address] [place], [address] RBC (Bld) [#/Vol] 4.47 10*6/uL Normal 4.2-5.4 [facility] Comment on above: Performed By: #### L 506.1001, L503.6550, L503.6150, L500.4050, L100.0100 ####[facility] [address] [place], [address] RDW SD 38.8 fl Normal 35.1-43.9 [facility] Comment on above: Performed By: #### L 506.1001, L503.6550, L503.6150, L500.4050, L100.0100 ####[facility] [address] [place], [address] WBC (Bld) [#/Vol] 5.9 10*3/uL Normal 4.4-11.0 [facility] Comment on above: Performed By: #### L 506.1001, L503.6550, L503.6150, L500.4050, L100.0100 ####[facility] [address] [place], [address] Carbon dioxide, total [Moles /volume] in Central venous bloodOrdered By: Maria Dolores Celis on 09-16-2024 CO2 [Moles/Vol] 23.1 mmol/L 21.0-32.0 [facility] Chloride assayOrdered By: Ra nilsa Celis on 09-16-2024 Chloride [Moles/Vol] 102 mmol/L 98-108 [facility] Comprehensive Metabolic Prof ilon 09-16-2024 Albumin [Mass/Vol] 4.5 g/dL Normal 3.5-5.0 [facility] Comment on above: Performed By: #### L 506.1001, L503.6550, L503.6150, L500.4050, L100.0100 ####[facility] [address] [place], [address] Albumin/Globulin [Mass ratio] 1.7 {ratio} Normal 0.9-2.4 [facility] Comment on above: Performed By: #### L 506.1001, L503.6550, L503.6150, L500.4050, L100.0100 ####[facility] [address] [place], [address] ALK PHOS 82 U/L Normal 35-104 [facility] Comment on above: Performed By: #### L 506.1001, L503.6550, L503.6150, L500.4050, L100.0100 ####[facility] [address] [place], [address] ALT [Catalytic activity/Vol] 29 U/L Normal <=34 [facility] Comment on above: Performed By: #### L 506.1001, L503.6550, L503.6150, L500.4050, L100.0100 ####[facility] [address] [place], [address] AST [Catalytic activity/Vol] 22 U/L Normal <=31 [facility] Comment on above: Performed By: #### L 506.1001, L503.6550, L503.6150, L500.4050, L100.0100 ####[facility] [address] [place], [address] Bilirubin [Mass/Vol] 0.27 mg/dL Normal 0.00-1.30 [facility] Comment on above: Performed By: #### L 506.1001, L503.6550, L503.6150, L500.4050, L100.0100 ####[facility] [address] [place], [address] BUN/CRE 34.4 RATIO High 10-20 [facility] Comment on above: Performed By: #### L 506.1001, L503.6550, L503.6150, L500.4050, L100.0100 ####[facility] [address] [place], [address] Calcium [Mass/Vol] 9.3 mg/dL Normal 7.6-11.0 [facility] Comment on above: Performed By: #### L 506.1001, L503.6550, L503.6150, L500.4050, L100.0100 ####[facility] [address] [place], [address] Chloride [Moles/Vol] 102 mmol/L Normal 98-108 [facility] Comment on above: Performed By: #### L 506.1001, L503.6550, L503.6150, L500.4050, L100.0100 ####[facility] [address] [place], [address] CO2 [Moles/Vol] 23.1 mmol/L Normal 21.0-32.0 [facility] Comment on above: Performed By: #### L 506.1001, L503.6550, L503.6150, L500.4050, L100.0100 ####[facility] [address] [place], [address] Creatinine [Mass/Vol] 0.64 mg/dL Low 0.70-1.20 [facility] Comment on above: Performed By: #### L 506.1001, L503.6550, L503.6150, L500.4050, L100.0100 ####[facility] [address] [place], [address] GAP 11 Normal 5-15 [facility] Comment on above: Performed By: #### L 506.1001, L503.6550, L503.6150, L500.4050, L100.0100 ####[facility] [address] [place], [address] GFR/1.73 sq M.predicted among non-blacks MDRD (S/P/Bld) [Vol rate/Area] 106 mL/min/{1.73_m2} Normal >60 [facility] Comment on above: Result Comment: mL/m in/1.73m2 CKD-EPI Creatinine Equation (2020) Performed By: #### L 506.1001, L503.6550, L503.6150, L500.4050, L100.0100 ####[facility] [address] [place], [address] Globulin (S) [Mass/Vol] 2.7 g/dL Normal 2.2-4.2 [facility] Comment on above: Performed By: #### L 506.1001, L503.6550, L503.6150, L500.4050, L100.0100 ####[facility] [address] [place], [address] Glucose [Mass/Vol] 86 mg/dL Normal 70-99 [facility] Comment on above: Performed By: #### L 506.1001, L503.6550, L503.6150, L500.4050, L100.0100 ####[facility] [address] [place], [address] Potassium [Moles/Vol] 4.4 mmol/L Normal 3.3-5.1 [facility] Comment on above: Performed By: #### L 506.1001, L503.6550, L503.6150, L500.4050, L100.0100 ####[facility] [address] [place], [address] Sodium [Moles/Vol] 136 mmol/L Normal 133-145 [facility] Comment on above: Performed By: #### L 506.1001, L503.6550, L503.6150, L500.4050, L100.0100 ####[facility] [address] [place], [address] T PROT 7.1 g/dL Normal 5.9-8.4 [facility] Comment on above: Performed By: #### L 506.1001, L503.6550, L503.6150, L500.4050, L100.0100 ####[facility] [address] [place], [address] Urea nitrogen [Mass/Vol] 22 mg/dL High 4-19 [facility] Comment on above: Performed By: #### L 506.1001, L503.6550, L503.6150, L500.4050, L100.0100 ####[facility] [address] [place], [address] Eosinophil percentageOrdered By: Maria Dolores Celis on 09-16-2024 Eosinophils/100 WBC (Bld) 2.5 % 0-5 [facility] Erythrocyte distribution wid th ratioOrdered By: [place] Vimal on 09-16-2024 Erythrocyte distribution width (RBC) [Ratio] 12.5 % 11.6-14.6 [facility] Erythrocyte distribution wid th standard deviationOrdered By: Maria Dolores Vimal on 09-16-2024 Erythrocyte distribution width (RBC) [Ratio] 38.8 fl 35.1-43.9 [facility] Ferritinon 09-16-2024 Ferritin [Mass/Vol] 80 ng/mL Normal 22-378 [facility] Comment on above: Performed By: #### L 506.1001, L503.6550, L503.6150, L500.4050, L100.0100 ####[facility] [address] [place], [address] Glomerular filtration rate ( GFR) estimation/1.73 sq m using serum, plasma, or whole bOrdered By: Maria Dolores Celis on 09-16-2024 GFR/1.73 sq M.predicted among non-blacks MDRD (S/P/Bld) [Vol rate/Area] 106 mL/min/{1.73_m2} >60 [facility] Comment on above: mL/min/1.73m2 CKD-EP I Creatinine Equation (2020) Hematocrit Auto (Bld) [Volum e fraction]Ordered By: Maria Dolores Celis on 09-16-2024 Hematocrit (Bld) [Volume fraction] 38.3 % 37-47 [facility] Hemoglobin measurementOrdere d By: Maria Dolores Celis on 09-16-2024 Hemoglobin (Bld) [Mass/Vol] 12.6 g/dL 12.0-15.0 [facility] Immature granulocytes/100 WB C Auto (Bld)Ordered By: Maria Dolores Celis on 09-16-2024 Immature granulocytes/100 WBC (Bld) 0.200 % 0.0-0.9 [facility] Comment on above: IG% - Immature Granu locytes (promyelocytes, myelocytes and metamyelocytes) > 1% indicates that a LEFT SHIFT is Present. Ironon 09-16-2024 Iron [Mass/Vol] 50 ug/dL Normal 50-170 [facility] Comment on above: Performed By: #### L 506.1001, L503.6550, L503.6150, L500.4050, L100.0100 ####[facility] [address] [place], [place], [address] Iron measurement (mass/mass) Ordered By: Maria Dolores Celis on 09-16-2024 Iron (Unsp spec) [Mass/Mass] 50 ug/dL 50-170 [facility] Laboratory - Chemistry and C hemistry - challengeOrdered By: Maria Dolores Celis on 09-16-2024 AST [Catalytic activity/Vol] 22 U/L <32 [facility] MCV (mean corpuscular volume ) determinationOrdered By: Maria Dolores Celis on 09-16-2024 MCV (RBC) [Entitic vol] 85.7 fL 81-99 [facility] Mean corpuscular hemoglobin (MCH) determinationOrdered By: Maria Dolores Celis on 09-16-2024 MCH (RBC) [Entitic mass] 28.2 pg 27.0-32.0 [facility] Mean corpuscular hemoglobin concentration (MCHC) determinationOrdered By: Maria Dolores Celis on 09-16-2024 MCHC (RBC) [Mass/Vol] 32.9 g/dL 32-36 [facility] Mean platelet volume determi nationOrdered By: Maria Dolores Celis on 09-16-2024 Platelet mean volume (Bld) [Entitic vol] 10.3 fL 6.2-12.0 [facility] Monocyte percentageOrdered B y: Maria Dolores Celis on 09-16-2024 Monocytes/100 WBC (Bld) 7.8 % 0-10 [facility] Neutrophil percentageOrdered By: Maria Dolores Celis on 09-16-2024 Neutrophils/100 WBC (Bld) 52.0 % 47-70 [facility] Nucleated red blood cell per centageOrdered By: Maria Dolores Celis on 09-16-2024 Nucleated RBC/100 WBC (Bld) [Ratio] 0 % 0-5 [facility] Platelet countOrdered By: Ra nilsa Celis on 09-16-2024 Platelets (Bld) [#/Vol] 282 10*3/uL 150-450 [facility] Potassium measurement (mass/ volume)Ordered By: Maria Dolores Celis on 09-16-2024 Potassium (Unsp spec) [Mass/Vol] 4.4 mmol/L 3.3-5.1 [facility] RBC Auto (Bld) [#/Vol]Ordere d By: Maria Dolores Celis on 09-16-2024 RBC (Bld) [#/Vol] 4.47 10*6/uL 4.2-5.4 [facility] Serum creatinine measurement (mass/volume)Ordered By: Maria Dolores Celis on 09-16-2024 Creatinine [Mass/Vol] 0.64 mg/dL Low 0.70-1.20 [facility] Serum globulin measurementOr dered By: Maria Dolores Celis on 09-16-2024 Globulin (S) [Mass/Vol] 2.7 g/dL 2.2-4.2 [facility] Serum glucose measurement (m ass/volume)Ordered By: Maria Dolores Celis on 09-16-2024 Glucose [Mass/Vol] 86 mg/dL 70-99 [facility] Serum or plasma alanine patterson otransferase (ALT) measurementOrdered By: Maria Dolores Celis on 09-16-2024 ALT [Catalytic activity/Vol] 29 U/L <35 [facility] Serum or plasma albumin pilo urement (mass/volume)Ordered By: Maria Dolores Celis on 09-16-2024 Albumin [Mass/Vol] 4.5 g/dL 3.5-5.0 [facility] Serum or plasma albumin/glob ulin mass ratioOrdered By: Maria Dolores Celis on 09-16-2024 Albumin/Globulin [Mass ratio] 1.7 {ratio} 0.9-2.4 [facility] Serum or plasma alkaline elizabeth sphatase measurementOrdered By: Maria Dolores Celis on 09-16-2024 ALP [Catalytic activity/Vol] 82 U/L 35-104 [facility] Serum or plasma calcium pilo urement (mass/volume)Ordered By: Maria Dolores Celis on 09-16-2024 Calcium [Mass/Vol] 9.3 mg/dL 7.6-11.0 [facility] Serum or plasma ferritin larry surement (mass/volume)Ordered By: Maria Dolores Celis on 09-16-2024 Ferritin [Mass/Vol] 80 ng/mL 22-378 [facility] Serum or plasma urea nitroge n measurement (mass/volume)Ordered By: Maria Dolores Celis on 09-16-2024 Urea nitrogen [Mass/Vol] 22 mg/dL High 4-19 [facility] Sodium levelOrdered By: Lakesha Celis on 09-16-2024 Sodium [Moles/Vol] 136 mmol/L 133-145 [facility] Total proteinOrdered By: Newton Celis on 09-16-2024 Protein [Mass/Vol] 7.1 g/dL 5.9-8.4 [facility] Vitamin D,25 Hydroxyon 09-16 Vitamin D 25-OH 31.8 ng/mL Normal 30-100 [facility] Comment on above: Result Comment: Pennie min D Status Deficiency: <20 ng/mL (50nmol/L) Insufficiency: 20-30 ng/mL (50-75 nmol/L) Sufficiency: 30-100 ng/mL (75-250 nmol/L) Toxicity: >100 ng/mL (>250 nmol/L) Performed By: #### L 506.1001, L503.6550, L503.6150, L500.4050, L100.0100 ####[facility] [id number] [place], [address] White blood cell (WBC) count Ordered By: Maria Dolores Celis on 09-16-2024 WBC (Bld) [#/Vol] 5.9 10*3/uL 4.4-11.0 [facility] T4 Free Directon 08-29-2024 T4 FREE DIRECT 1.10 ng/dL Normal 0.76-1.46 [facility] Comment on above: Performed By: #### L 506.0400, L501.9520 ####[facility] [id number] [place] [place], [address] T4 freeOrdered By: Hanna on 08-29-2024 Free T4 [Mass/Vol] 1.10 ng/dL 0.76-1.46 [facility] TSH DL <= 0.005 mIU/L QnOrde red By: Tamie Crews on 08-29-2024 TSH Qn 0.798 uIU/mL 0.300-4.200 [facility] Thyroid Stim Hormone (TSH)on 08-29-2024 TSH 0.798 uIU/mL Normal 0.300-4.200 [facility] Comment on above: Performed By: #### L 506.0400, L501.9520 ####[facility] [id number] [place], [address] SCRN MAMM (CAD)W/MATIAS BILATo n 02-19-2024 SCRN MAMM (CAD)W/MATIAS BILAT [facility] Imaging Services [address] [place] [id number] SCRN MAMM (CAD)W/MATIAS BILAT MR#: [id number] Acct: [id number] Name: NICKIE STUBBS Rep #: [id number] : 1970 F 53 From: Kings wang MD PCP: Dr. Sonal Botello DO Status: [facility] Study: SCRN MAMM (CAD)W/MATIAS BILAT Date of Exam: 01/31 Exam# [id number] Ordering Dr: Martina Eason DO [id number] MAMMOGRAPHY - BILATERAL SCREENING REASON FOR EXAM: Female, 53 years old. Routine annual screening examination. PERTINENT HISTORY: Grandmother with breast cancer. TECHNIQUE: Digital bilateral breast matias (3D mammographic acquisition) in the CC and MLO projections. 2-D mediolateral oblique (MLO) and craniocaudad (CC) views of both breasts were obtained. CAD: Full Field Digital Mammography with Computer Added Detection was performed. COMPARISON: Comparison is made with prior study February 13, 2023 and February 09, 2022. FINDINGS: Breast Composition: There are scattered areas of fibroglandular density. There are no dominant masses or suspicious calcifications. No other significant abnormalities are identified. There has been no significant change since the prior study. BI/SCRN MAMM (CAD)W/MATIAS BILAT IMPRESSION: Stable bilateral screening mammogram. Yearly follow-up mammogram recommended. (A) ASSESSMENT CATEGORY: BIRADS Category 1: Negative. A letter regarding these results will be sent to the patient by the facility within 30 days. Approximately 10% of breast cancers are not detected by mammography. A normal mammogram should not delay biopsy of a clinically suspicious abnormality. [id number] Electronically Signed: Kings Bassett MD at 12:06 EST , CC: Dr. Martina Eason, DO; Dr. Sonal Botello DO Rn Transport: Signed Normal [facility] Cervical or vaginal specimen microscopic examination by liquid based cytology (reportOrdered By: Martina Delarosa on 07-16-2023 Cytology report Cyto stain.thin prep Doc (Cvx/Vag) Comment . [facility] Comment on above: Criteria not met, HP V Genotype not performed.Performed at: - [facility] [id number] Director: Lizzie Chávez MD, Phone: [phone] at: =[facility] [id number] Director: Lizzie Chávez MD, Phone: [phone] Cervical or vagninal specime n microscopic examination by cytology stain (reported asOrdered By: Martina Delarosa on 07-16-2023 Cytology report Cyto stain Doc (Cvx/Vag) Comment . [facility] Comment on above: The Pap smear is a s creening test designed to aid in thedetection of premalignant and malignant conditions of theuterine cervix. It is not a diagnostic procedure andshould not be used as the sole means of detecting cervicalcancer. Both false-positive and false-negative reports dooccur. Detection in cervical specim en of any of human papilloma virus (HPV) 16, 18, 31, 33,Ordered By: Martina Delarosa on 07-16-2023 HPV 16+18+31+33+35+39+45+51+ 52+56+58+59+66+68 DNA Probe+sig amp Ql (Cvx) Negative Negative [facility] Comment on above: This nucleic acid am plification test detects fourteen high-risk HPV types (16,18,31,33,35,39,45,51,52,56,58,59,66,68)without differentiation. Laboratory - CytologyOrdered By: Martina Delarosa on 07-16-2023 [employer] Associate Cyto stain Nom (Cvx/Vag) [ID] Comment . [facility] Comment on above: Mary Salgado ytotechnologist (ASCP) Laboratory - Miscellaneous t estsOrdered By: Martina Delarosa on 07-16-2023 Service comment (Unsp spec) [Interp] . . [facility] Thin prep Papanicolaou smear with manual screeningOrdered By: Martina Delarosa on 07-16-2023 Thin prep Papanicolaou smear with manual screening Comment . [facility] Comment on above: NEGATIVE FOR INTRAEP ITHELIAL LESION OR MALIGNANCY. This liquid based Th inPrep(R) pap test was screened withthe use of an image guided system. Laboratory - Chemistry and C hemistry - challengeOrdered By: Levi Moss on 03-06-2023 Free T4 [Mass/Vol] 0.68 ng/dL 0.76-1.46 [facility] No Panel InformationOrdered By: Levi Moss on 03-06-2023 Free Triiodothyronine (T3) pg/dL 2.2 pg/mL 2.18-3.98 [facility] Thyroid Stimulating Hormone (TSH) 3.09 uIU/mL 0.358-3.74 [facility] Laboratory - Hematology and Cell countson 01-25-2023 HbA1c (Bld) [Mass fraction] 5.5 % 4.2-6.3 [facility] Absolute lymphocyte countOrd ered By: Sonal Botello on 12-05-2022 Lymphocytes Auto (Unsp spec) [#/Vol] 1.93 10*3/uL 0.83-4.51 [facility] Basophil percentageOrdered B y: Sonal Botello on 12-05-2022 Basophils/100 WBC (Bld) 0.7 % 0-1 [facility] Bilirubin [Mass/Vol] 0.50 mg/dL 0.20-1.00 [facility] Comment on above: For patients on eltr ombopag therapy, use of Dimension [place] TBIL is not recommended. Chloride [Moles/Vol] 105 mmol/L 98-107 [facility] Cholesterol [Mass/Vol] 170 mg/dL <200 [facility] Comment on above: <200 mg/dL Desirable 200-240 mg/dL Borderline >240 mg/dL High Risk Eosinophils/100 WBC (Bld) 2.8 % 0-5 [facility] Glucose [Mass/Vol] 84 mg/dL 74-106 [facility] Neutrophils (Bld) [#/Vol] 4.7 10*3/uL 2.0-7.7 [facility] Neutrophils/100 WBC (Bld) 63.3 % 47-70 [facility] Potassium [Moles/Vol] 4.1 mmol/L 3.5-5.1 [facility] Protein [Mass/Vol] 7.7 g/dL 6.4-8.2 [facility] Sodium [Moles/Vol] 137 mmol/L 136-145 [facility] Triglyceride [Mass/Vol] 200 mg/dL <199 [facility] Comment on above: The drugs N-Acetylcy steine and Metamizole may falsely depress this assay.Serum Triglycerides Reference Interval Normal <150 mg/dL Borderline high 150 - 199 mg/dL High 200 - 499 mg/dL Very High > or = 500 mg/dL WBC (Bld) [#/Vol] 7.4 10*3/uL 4.4-11.0 [facility] Blood erythrocytes count (nu mber/volume)Ordered By: Sonal Botello on 12-05-2022 RBC (Bld) [#/Vol] 4.62 10*6/uL 4.2-5.4 [facility] Blood hemoglobin measurement (mass/volume)Ordered By: Sonal Botello on 12-05-2022 Hemoglobin (Bld) [Mass/Vol] 12.9 g/dL 12.0-15.0 [facility] Blood lymphocytes/100 leukoc ytesOrdered By: Sonal Botello on 12-05-2022 Lymphocytes/100 WBC (Bld) 26.1 % 19-41 [facility] Blood monocytes/100 leukocyt esOrdered By: Sonal Botello on 12-05-2022 Monocytes/100 WBC (Bld) 6.8 % 0-10 [facility] Blood platelet mean volumeOr dered By: Sonal Botello on 12-05-2022 Platelet mean volume (Bld) [Entitic vol] 10.1 fL 6.2-12.0 [facility] Determination of erythrocyte mean corpuscular volume (MCV)Ordered By: Sonal Botello on 12-05-2022 MCV (RBC) [Entitic vol] 86.6 fL 81-99 [facility] Hematocrit Auto (Bld) [Volum e fraction]Ordered By: Sonal Botello on 12-05-2022 Hematocrit (Bld) [Volume fraction] 40.0 % 37-47 [facility] Laboratory - Chemistry and C hemistry - challengeOrdered By: Sonal Botello on 12-05-2022 ALP [Catalytic activity/Vol] 77 U/L 45-117 [facility] ALT [Catalytic activity/Vol] 34 U/L 13-56 [facility] CO2 [Moles/Vol] 27.0 mmol/L 21.0-32.0 [facility] Globulin (S) [Mass/Vol] 3.7 g/dL 2.2-4.2 [facility] Urea nitrogen/Creatinine [Mass ratio] 26.3 mg/mg 10-20 [facility] Laboratory - Hematology and Cell countsOrdered By: Sonal Botello on 12-05-2022 Erythrocyte distribution width (RBC) [Entitic vol] 40.4 fL 35.1-43.9 [facility] Erythrocyte distribution width (RBC) [Ratio] 12.9 % 11.6-14.6 [facility] Immature granulocytes/100 WBC (Bld) 0.300 % 0.0-0.9 [facility] Comment on above: IG% - Immature Granu locytes (promyelocytes, myelocytes and metamyelocytes) > 1% indicates that a LEFT SHIFT is Present. MCH (RBC) [Entitic mass] 27.9 pg 27.0-32.0 [facility] Nucleated RBC/100 WBC (Bld) [Ratio] 0 % 0-5 [facility] MCHC Auto (RBC) [Mass/Vol]Or dered By: Sonal Botello on 12-05-2022 MCHC (RBC) [Mass/Vol] 32.3 g/dL 32-36 [facility] No Panel InformationOrdered By: Sonal Botello on 12-05-2022 Estimated GFR (MDRD) Amer 93 mL/min >60 [facility] Comment on above: GFR Calc Estimated GFR (MDRD) Non-Af Amer 77 mL/min >60 [facility] Comment on above: Non- GFR Calc Platelets bldOrdered By: Judy Botello on 12-05-2022 Platelets (Bld) [#/Vol] 288 10*3/uL 150-450 [facility] Serum or plasma albumin pilo urement (mass/volume)Ordered By: Sonal Botello on 12-05-2022 Albumin [Mass/Vol] 4.0 g/dL 3.2-5.0 [facility] Serum or plasma albumin/glob ulin mass ratioOrdered By: Sonal Botello on 12-05-2022 Albumin/Globulin [Mass ratio] 1.1 {ratio} 0.9-2.4 [facility] Serum or plasma calcium pilo urement (mass/volume)Ordered By: Sonal Botello on 12-05-2022 Calcium [Mass/Vol] 8.9 mg/dL 8.5-10.1 [facility] Serum or plasma cholesterol in HDL measurement (mass/volume)Ordered By: Sonal Botello on 12-05-2022 Cholesterol in HDL [Mass/Vol] 37 mg/dL >40 [facility] Comment on above: The drugs N-Acetylcy steine and Metamizole may falsely depress this assay. Reference Range HDL <40 mg/dL Low HDL Cholesterol HDL >or= 60 mg/dL High HDL Cholesterol Serum or plasma cholesterol in VLDL measurement (mass/volume)Ordered By: Sonal Botello on 12-05-2022 Cholesterol in VLDL [Mass/Vol] 40 mg/dL 5-40 [facility] Serum or plasma creatinine m easurement (mass/volume)Ordered By: Sonal Botello on 12-05-2022 Creatinine [Mass/Vol] 0.84 mg/dL 0.55-1.02 [facility] Comment on above: The validity of the calculated GFR & GFRAA in patients over 70 years has not been determined. Clinical correlation is essential. Serum or plasma low density lipoprotein (LDL) cholesterol measurement (mass/volume)Ordered By: Sonal Botello on 12-05-2022 Cholesterol in LDL [Mass/Vol] 93 mg/dL 0-130 [facility] Serum or plasma urea nitroge n measurement (mass/volume)Ordered By: Sonal Botello on 12-05-2022 Urea nitrogen [Mass/Vol] 22 mg/dL 7-18 [facility] Thin prep Papanicolaou smear with manual screeningOrdered By: Sonal Botello on 12-05-2022 Thin prep Papanicolaou smear with manual screening 20 U/L 15-37 [facility] Thin prep Papanicolaou smear with manual screening 5 5-15 [facility] Laboratory - Hematology and Cell countson 01-30-2022 HbA1c (Bld) [Mass fraction] 5.3 % 4.2-6.3 [facility] Work Phone: Basophil percentageon 2021 Cholesterol [Mass/Vol] 155 mg/dL <200 [facility] Work Phone: Comment on above: <200 mg/dL Desirable 200-240 mg/dL Borderline >240 mg/dL High Risk Triglyceride [Mass/Vol] 138 mg/dL <199 [facility] Work Phone: Comment on above: The drugs N-Acetylcy steine and Metamizole may falsely depress this assay.Serum Triglycerides Reference Interval Normal <150 mg/dL Borderline high 150 - 199 mg/dL High 200 - 499 mg/dL Very High > or = 500 mg/dL Laboratory - Chemistry and C hemistry - challengeon 12-01-2021 Cobalamin (Vitamin B12) [Mass/Vol] 947 pg/mL 211-911 [facility] Work Phone: Serum or plasma cholesterol in HDL measurement (mass/volume)on 12-01-2021 Cholesterol in HDL [Mass/Vol] 39 mg/dL >40 [facility] Work Phone: Comment on above: The drugs N-Acetylcy steine and Metamizole may falsely depress this assay. Reference Range HDL <40 mg/dL Low HDL Cholesterol HDL >or= 60 mg/dL High HDL Cholesterol Serum or plasma cholesterol in VLDL measurement (mass/volume)on 12-01-2021 Cholesterol in VLDL [Mass/Vol] 28 mg/dL 5-40 [facility] Work Phone: Serum or plasma folate measu rement (mass/volume)on 12-01-2021 Folate [Mass/Vol] 31.80 ng/mL 3.1-55.4 [facility] Work Phone: Serum or plasma low density lipoprotein (LDL) cholesterol measurement (mass/volume)on 12-01-2021 Cholesterol in LDL [Mass/Vol] 88 mg/dL 0-130 [facility] Work Phone: [phone] Absolute lymphocyte counton 11-18-2021 Lymphocytes Auto (Unsp spec) [#/Vol] 1.17 10*3/uL 0.83-4.51 [facility] Work Phone: Basophil percentageon 2021 Basophils/100 WBC (Bld) 0.6 % 0-1 [facility] Work Phone: Chloride [Moles/Vol] 106 mmol/L 98-107 [facility]: Eosinophils/100 WBC (Bld) 1.3 % 0-5 [facility] Work Phone: Glucose [Mass/Vol] 116 mg/dL 74-106 [facility] Work Phone: Comment on above: Fasting Glucose resu lt from 100 to 125 mg/dL suggests IMPAIRED HOMEOSTASIS per A.D.A. criteria. Neutrophils (Bld) [#/Vol] 7.7 10*3/uL 2.0-7.7 [facility] Work Phone: Neutrophils/100 WBC (Bld) 79.2 % 47-70 [facility] Work Phone: Potassium [Moles/Vol] 4.0 mmol/L 3.5-5.1 [facility] Work Phone: Sodium [Moles/Vol] 138 mmol/L 136-145 [facility] Work Phone: WBC (Bld) [#/Vol] 9.8 10*3/uL 4.4-11.0 [facility] Work Phone: [phone] Blood erythrocytes count (nu mber/volume)on 11-18-2021 RBC (Bld) [#/Vol] 4.62 10*6/uL 4.2-5.4 [facility] Work Phone: [phone] Blood hemoglobin measurement (mass/volume)on 11-18-2021 Hemoglobin (Bld) [Mass/Vol] 13.3 g/dL 12.0-15.0 [facility] Work Phone: [phone] Blood lymphocytes/100 leukoc yteson 11-18-2021 Lymphocytes/100 WBC (Bld) 12.0 % 19-41 [facility] Work Phone: [phone] Blood monocytes/100 leukocyt eson 11-18-2021 Monocytes/100 WBC (Bld) 6.6 % 0-10 [facility] Work Phone: [phone] Blood platelet mean volumeon 11-18-2021 Platelet mean volume (Bld) [Entitic vol] 9.7 fL 6.2-12.0 [facility] Work Phone: Determination of erythrocyte mean corpuscular volume (MCV)on 11-18-2021 MCV (RBC) [Entitic vol] 86.1 fL 81-99 [facility] Work Phone: [phone] Hematocrit Auto (Bld) [Volum e fraction]on 11-18-2021 Hematocrit (Bld) [Volume fraction] 39.8 % 37-47 [facility] Work Phone: [phone] Laboratory - Chemistry and C hemistry - challengeon 11-18-2021 CO2 [Moles/Vol] 25.0 mmol/L 21.0-32.0 [facility] Work Phone: [phone] Urea nitrogen/Creatinine [Mass ratio] 25.4 mg/mg 10-20 [facility] Work Phone: [phone] Laboratory - Hematology and Cell countson 11-18-2021 Erythrocyte distribution width (RBC) [Entitic vol] 39.4 fL 35.1-43.9 [facility] Work Phone: [phone] Erythrocyte distribution width (RBC) [Ratio] 12.6 % 11.6-14.6 [facility] Work Phone: [phone] Immature granulocytes/100 WBC (Bld) 0.300 % 0.0-0.9 [facility] Work Phone: [phone] Comment on above: IG% - Immature Granu locytes (promyelocytes, myelocytes and metamyelocytes) > 1% indicates that a LEFT SHIFT is Present. MCH (RBC) [Entitic mass] 28.8 pg 27.0-32.0 [facility] Work Phone: [phone] Nucleated RBC/100 WBC (Bld) [Ratio] 0 % 0-5 [facility] Work Phone: [phone] MCHC Auto (RBC) [Mass/Vol]on 11-18-2021 MCHC (RBC) [Mass/Vol] 33.4 g/dL 32-36 [facility] Work Phone: [phone] No Panel Informationon 11-18 Estimated Creatinine Clearance Calc 80.64 ml/min [facility] Work Phone: [phone] Estimated GFR (MDRD) Amer 100 mL/min >60 [facility] Work Phone: [phone] Comment on above: GFR Calc Estimated GFR (MDRD) Non-Af Amer 83 mL/min >60 [facility] Work Phone: [phone] Comment on above: Non- GFR Calc Thyroid Stimulating Hormone (TSH) 0.33 uIU/mL 0.358-3.74 [facility] Work Phone: [phone] Troponin I High Sensitivity 4 pg/mL 3.0-54.0 [facility] Work Phone: [phone] Comment on above: Please Note: New Lenora t Units and Gender Specific Reference Ranges. For more information see Policy Stat Procedure [place] High Sensitivity Troponin (TNIH) and attachments. Platelets bldon 11-18-2021 Platelets (Bld) [#/Vol] 284 10*3/uL 150-450 [facility] Work Phone: Serum or plasma calcium pilo urement (mass/volume)on 11-18-2021 Calcium [Mass/Vol] 9.5 mg/dL 8.5-10.1 [facility] Work Phone: Serum or plasma creatinine m easurement (mass/volume)on 11-18-2021 Creatinine [Mass/Vol] 0.79 mg/dL 0.55-1.02 [facility] Work Phone: Comment on above: The validity of the calculated GFR & GFRAA in patients over 70 years has not been determined. Clinical correlation is essential. Serum or plasma urea nitroge n measurement (mass/volume)on 11-18-2021 Urea nitrogen [Mass/Vol] 20 mg/dL 7-18 [facility] Work Phone: Thin prep Papanicolaou smear with manual screeningon 11-18-2021 Thin prep Papanicolaou smear with manual screening 7 5-15 [facility] Work Phone: Basophil percentageon 2021 Basophil percentage 5-10 SEEN /hpf 0-5 [facility] Work Phone: Bilirubin Test strip Ql (U)o n 11-10-2021 Bilirubin Ql (U) Negative Negative [facility] Work Phone: Ketones Test strip Ql (U)on 11-10-2021 Ketones Ql (U) Negative Negative [facility] Work Phone: Laboratory - Chemistry and C hemistry - challengeon 11-10-2021 Bilirubin Ql (U) Negative [facility] Work Phone: Glucose Ql (U) Negative [facility] Work Phone: HCG ( test) Ql (U) Negative [facility] Work Phone: Ketones Ql (U) Negative [facility] Work Phone: pH (U) 5.0 [pH] [facility] Work Phone: [phone] Specific gravity (U) [Rel density] 1.005 [facility] Work Phone: Urobilinogen (U) [Mass/Vol] Negative [facility] Work Phone: Laboratory - Hematology and Cell countson 11-10-2021 Hemoglobin Ql (U) Hemolyzed [facility] Work Phone: Laboratory - Specimen inform ationon 11-10-2021 Clarity (U) Cloudy [facility] Work Phone: Color (U) STRAW [facility] Work Phone: Laboratory - Urinalysison Nitrite Ql (U) Negative [facility] Work Phone: Protein Ql (U) Negative [facility] Work Phone: Mucus LM Ql (Urine sed)on Mucus Ql (Urine sed) 0 SEEN /hpf [facility] Work Phone: Nitrite Test strip Ql (U)on 11-10-2021 Nitrite Ql (U) Negative Negative [facility] Work Phone: No Panel Informationon 11-10 Urine Leukocytes Positive [facility] Work Phone: Urine Non-Hemolyzed Blood Moderate [facility] Work Phone: Protein Test strip Ql (U)on 11-10-2021 Protein Ql (U) Negative Negative [facility] Work Phone: Squamous epithelial cells de tection in urine sediment by light microscopyon 11-10-2021 Epithelial cells.squamous LM Ql (Urine sed) 0 SEEN /hpf 5-10 [facility] Work Phone: Urine blood detectionon 10-30 RBC Ql (U) 25 /ul Negative [facility] Work Phone: RBC Ql (U) 5-10 SEEN /hpf 0-5 [facility] Work Phone: Urine clarityon 11-10-2021 Clarity (U) Sl. Cloudy Clear [facility] Work Phone: Urine color determinationon 11-10-2021 Color (U) Straw Yellow [facility] Work Phone: Urine glucose detectionon Glucose Ql (U) Normal mg/dl Normal [facility] Work Phone: Urine leukocyte esterase det ection by dipstickon 11-10-2021 Leukocyte esterase Test strip Ql (U) 500 /ul Negative [facility] Work Phone: Urine pHon 11-10-2021 pH (U) 6.0 [pH] 5.0 - 8.0 [facility] Work Phone: Urine sediment bacteria coun t by microscopy (number/high power field)on 11-10-2021 Bacteria LM.HPF (Urine sed) [#/Area] 0 /[HPF] None Seen [facility] Work Phone: Urine specific gravity measu rementon 11-10-2021 Specific gravity (U) [Rel density] 1.005 1.002-1.030 [facility] Work Phone: Urobilinogen Auto test strip Ql (U)on 11-10-2021 Urobilinogen Ql (U) Normal mg/dl Normal [facility] Work Phone: OBSOLETEon 11-16-2016 OBSOLETE Refill (GSTNOR) ----NICKIE STUBBS ([id number]) 1970 [facility] Time Provider Department11/16/16 ADALID COELHONOR During your visit today, we recorded the following information about you:Nicky Kassie Boyer 11/16/2016 4:09 PM SignedPatient phones requesting refills as follows:Pending Prescriptions Disp Refills PANTOPRAZOLE 40 MG TABLET,DELAYED RELEASE 90 tablet 1 Sig: Take 1 tablet by mouth once daily. Please review and advise.Nicky Coelho MD 11/26/2016 10:46 AM SignedRx approved. Please call to pharmacy.Thank Shukri Mccormick MA 11/26/2016 2:51 PM SignedLeft message that medications as requested were approved, need to confirmcorrect pharmacy information. .Sonal Will Orozco As of Date: 11/16/2016(Not on File)Date Reviewed: Never ReviewedReason for Visit: Refill Request [94]Order(s):pantopra zole (PROTONIX) 40 mg tabletTake 1 tablet by mouth once daily.Disp: 90 tabletRfl: 1Prescriptions as of 11/16/2016 Sig: PANTOPRAZOLE 40 MG TABLET,DEL* Take 1 tablet by mouth once d*Problem List As Of Date: 11/16/2016(None)Presc riptions ordered this encounter Disp Refills Start End PANTOPRAZOLE 40 MG TABLET,DELAYED RE* 90 t* 1 11/26/2016 Route: ORAL Sig: Take 1 tablet by mouth once daily. Status:Closed by NICKY JOHNSON on 11/28/16 Normal [facility] Culture, urine Bacteria identified Cx Nom (U) Mixed Gram Pos & Gram Neg Org [facility] Work Phone: Vital Signs Date Time Vital Sign Value Performing Clinician Pasha downs 01-22-2025 08:34-0400 Body height 167.[address] Sonal Botello DO Work Phone: [facility] 01-22-2025 08:34-0400 Body mass index (BMI) [Ratio] 30.3 kg/m2 Dr. Sonal Botello DO Work Phone: [facility] 01-22-2025 08:34-0400 Body weight 85.[address] Sonal Botello DO Work Phone: [facility] 01-22-2025 08:34-0400 Diastolic blood pressure 83 mm[Hg] Dr. Sonal Botello DO Work Phone: [facility] 01-22-2025 08:34-0400 Heart rate 88 /min Dr. Sonal Botello DO Work Phone: [facility] 01-22-2025 08:34-0400 SaO2% (BldA) [Mass fraction] 97 % Dr. Sonal Botello DO Work Phone: [facility] 01-22-2025 08:34-0400 Systolic blood pressure 131 mm[Hg] Dr. Sonal Botello DO Work Phone: [facility] 12-03-2024 14:26-0400 Body height 167.[address] Sonal Botello DO Work Phone: [facility] 12-03-2024 14:26-0400 Body mass index (BMI) [Ratio] 30.3 kg/m2 Dr. Sonal Botello DO Work Phone: [facility] 12-03-2024 14:26-0400 Body weight 85.[address] Sonal Botello DO Work Phone: [facility] 12-03-2024 14:26-0400 Diastolic blood pressure 83 mm[Hg] Dr. Sonal Botello DO Work Phone: [facility] 12-03-2024 14:26-0400 Heart rate 84 /min Dr. Sonal Botello DO Work Phone: [facility] 12-03-2024 14:26-0400 Respiratory rate 16 /min Dr. Sonal Botello DO Work Phone: [facility] 12-03-2024 14:26-0400 SaO2% (BldA) [Mass fraction] 97 % Dr. Sonal Botello DO Work Phone: [facility] 12-03-2024 14:26-0400 Systolic blood pressure 120 mm[Hg] Dr. Sonal Botello DO Work Phone: [facility] 10-04-2024 11:22-0400 Body height 167.[address] Sonal Botello DO Work Phone: [facility] 10-04-2024 11:22-0400 Body mass index (BMI) [Ratio] 30.9 kg/m2 Dr. Sonal Botello DO Work Phone: [facility] 10-04-2024 11:22-0400 Body temperature 98 [degF] Dr. Sonal Botello DO Work Phone: [facility] 10-04-2024 11:22-0400 Body weight 87.[address] Sonal Botello DO Work Phone: [facility] 10-04-2024 11:22-0400 Diastolic blood pressure 78 mm[Hg] Dr. Sonal Botello DO Work Phone: [facility] 10-04-2024 11:22-0400 Heart rate 78 /min Dr. Sonal Botello DO Work Phone: [facility] 10-04-2024 11:22-0400 Respiratory rate 16 /min Dr. Sonal Botello DO Work Phone: [facility] 10-04-2024 11:22-0400 SaO2% (BldA) [Mass fraction] 98 % Dr. Sonal Botello DO Work Phone: [facility] 10-04-2024 11:22-0400 Systolic blood pressure 112 mm[Hg] Dr. Sonal Botello DO Work Phone: [facility] 07-16-2023 08:53-0400 Body height 167.[address] Sonal Botello Work Phone: [facility] 07-16-2023 08:51-0400 Body mass index (BMI) [Ratio] 32.5 kg/m2 Dr. Sonal Botello Work Phone: [facility] 07-16-2023 08:51-0400 Body weight 91.[address] Sonal Botello Work Phone: [facility] 07-16-2023 08:51-0400 Diastolic blood pressure 76 mm[Hg] Dr. Sonal Botello Work Phone: [facility] 07-16-2023 08:51-0400 Systolic blood pressure 118 mm[Hg] Dr. Sonal Botello Work Phone: [facility] 01-25-2023 08:35-0400 Body height 167.[address] Sonal Botello Work Phone: [facility] 01-25-2023 08:35-0400 Body mass index (BMI) [Ratio] 33.4 kg/m2 Dr. Sonal Botello Work Phone: [facility] 01-25-2023 08:35-0400 Body temperature 98.8 [degF] Dr. Sonal Botello Work Phone: [facility] 01-25-2023 08:35-0400 Body weight 93.[address] Sonal Botello Work Phone: [facility] 01-25-2023 08:35-0400 Diastolic blood pressure 90 mm[Hg] Dr. Sonal Botello Work Phone: [facility] 01-25-2023 08:35-0400 Heart rate 84 /min Dr. Sonal Botello Work Phone: [facility] 01-25-2023 08:35-0400 Respiratory rate 14 /min Dr. Sonal Botello Work Phone: [facility] 01-25-2023 08:35-0400 SaO2% (BldA) [Mass fraction] 98 % Dr. Sonal Botello Work Phone: [facility] 01-25-2023 08:35-0400 Systolic blood pressure 142 mm[Hg] Dr. Sonal Botello Work Phone: [facility] 02-07-2022 11:17-0500 Body height 167.[address] Sonal Botello Work Phone: [facility] Work Phone: 02-07-2022 11:17-0500 Body mass index (BMI) [Ratio] 34.7 kg/m2 Dr. Sonal Botello Work Phone: [facility] Work Phone: 02-07-2022 11:17-0500 Body weight 97.[address] Sonal Botello Work Phone: [facility] Work Phone: 02-07-2022 11:17-0500 Diastolic blood pressure 77 mm[Hg] Dr. Sonal Botello Work Phone: [facility] Work Phone: 02-07-2022 11:17-0500 Systolic blood pressure 119 mm[Hg] Dr. Sonal Botello Work Phone: [facility] Work Phone: 01-30-2022 08:10-0400 Body mass index (BMI) [Ratio] 34.7 kg/m2 Dr. Sonal Botello Work Phone: [facility] Work Phone: 01-30-2022 08:10-0400 Body temperature 98.3 [degF] Dr. Sonal Botello Work Phone: [facility] Work Phone: 01-30-2022 08:10-0400 Body weight 97.[address] Sonal Botello Work Phone: [facility] Work Phone: 01-30-2022 08:10-0400 Diastolic blood pressure 83 mm[Hg] Dr. Sonal Botello Work Phone: [facility] Work Phone: 01-30-2022 08:10-0400 Heart rate 100 /min Dr. Sonal Botello Work Phone: [facility] Work Phone: 01-30-2022 08:10-0400 Respiratory rate 16 /min Dr. Sonal Botello Work Phone: [facility] Work Phone: 01-30-2022 08:10-0400 SaO2% (BldA) [Mass fraction] 98 % Dr. Sonal Botello Work Phone: [facility] Work Phone: 01-30-2022 08:10-0400 Systolic blood pressure 125 mm[Hg] Dr. Sonal Botello Work Phone: [facility] Work Phone: 12-28-2021 08:49-0400 Body mass index (BMI) [Ratio] 35 kg/m2 Dr. Sonal Botello Work Phone: [facility] Work Phone: 12-28-2021 08:49-0400 Body weight 98.[address] Sonal Botello Work Phone: [facility] Work Phone: 12-28-2021 08:49-0400 Diastolic blood pressure 77 mm[Hg] Dr. Sonal Botello Work Phone: [facility] Work Phone: 12-28-2021 08:49-0400 Systolic blood pressure 120 mm[Hg] Dr. Sonal Botello Work Phone: [facility] Work Phone: 11-18-2021 22:41-0400 Diastolic blood pressure 76 mm[Hg] Dr. Sonal Botello Work Phone: [facility] Work Phone: 11-18-2021 22:41-0400 Heart rate 102 /min Dr. Sonal Botello Work Phone: [facility] Work Phone: 11-18-2021 22:41-0400 Respiratory rate 14 /min Dr. Sonal Botello Work Phone: [facility] Work Phone: 11-18-2021 22:41-0400 SaO2% (BldA) [Mass fraction] 96 % Dr. Sonal Botello Work Phone: [facility] Work Phone: 11-18-2021 22:41-0400 Systolic blood pressure 133 mm[Hg] Dr. Sonal Botello Work Phone: [facility] Work Phone: 11-18-2021 20:07-0400 Body temperature 99.1 [degF] Dr. Sonal Botello Work Phone: [facility] Work Phone: 11-18-2021 19:53-0400 Body height 167.[address] Sonal Botello Work Phone: [facility] Work Phone: 11-18-2021 19:53-0400 Body mass index (BMI) [Ratio] 33.9 kg/m2 Dr. Sonal Botello Work Phone: [facility] Work Phone: 11-18-2021 19:53-0400 Body weight 95.[address] Sonal Botello Work Phone: [facility] Work Phone: 11-10-2021 10:30-0400 Body temperature 99 [degF] Dr. Sonal Botello Work Phone: [facility] Work Phone: 11-10-2021 10:30-0400 Diastolic blood pressure 80 mm[Hg] Dr. Sonal Botello Work Phone: [facility] Work Phone: 11-10-2021 10:30-0400 Heart rate 97 /min Dr. Sonal Botello Work Phone: [facility] Work Phone: 11-10-2021 10:30-0400 Respiratory rate 16 /min Dr. Sonal Botello Work Phone: [facility] Work Phone: 11-10-2021 10:30-0400 SaO2% (BldA) [Mass fraction] 98 % Dr. Sonal Botello Work Phone: [facility] Work Phone: 11-10-2021 10:30-0400 Systolic blood pressure 126 mm[Hg] Dr. Sonal Botello Work Phone: [facility] Work Phone: 10-05-2021 10:20-0400 Body height 168.91 cm [facility] Work Phone: 10-05-2021 10:20-0400 Body weight 96.34 kg [facility] Work Phone: 09-21-2021 13:49-0400 Body height 168.91 cm [facility] Work Phone: 09-21-2021 13:49-0400 Body weight 97.34 kg [facility] Work Phone: 08-24-2021 11:51-0400 Body weight 97.97 kg [facility] Work Phone: Encounters Encounter Date Encounter Type Care Provider Facility Start: 01-26-2025 ambulatory [facility] Start: 01-22-2025 End: 01-22-2025 ambulatory [facility] Start: 01-22-2025 End: 01-22-2025 ambulatory [facility] Facility:[facility] Start: 01-05-2025 End: 01-05-2025 Patient encounter procedure Maria Dolores Celis [employer] -Laboratory Work Phone: Start: 01-05-2025 End: 01-05-2025 ambulatory [facility] Facility:[facility] Start: 01-01-2025 Non-patient / Non-visit Dr. Xander Pennington MD -[facility] Start: 01-01-2025 End: 01-01-[address] Sonal Botello DO Work Phone: -Cardiovascular Services Start: 01-01-2025 End: 01-01-[address] Nnamdi Del Real MD -Cardiovascular Services Work Phone: Start: 01-01-2025 End: 01-01-20[facility] Start: 12-10-2024 [facility] Start: 12-10-[address] Nnamdi beyer MD -Cardiovascular Services Work Phone: Start: 12-10-2024 Non-patient / Non-visit Dr. Nnamdi Del Real MD -[facility] Work Phone: Start: 12-03-2024 End: 12-03-[address] Sonal Botello DO Work Phone: -[facility] Start: 12-03-2024 End: 12-03-[address] Nnamdi Del Real MD -[facility] Work Phone: Start: 10-05-2024 End: 10-05-[address] Sonal Botello DO Work Phone: -Laboratory Specimen Start: 10-05-2024 End: 10-05-2024 Patient encounter procedure Florencio Wise [employer] -Laboratory Specimen Work Phone: Start: 10-04-2024 End: 10-04-2024 Patient encounter procedure Florencio Wise [employer] Work Phone: Start: 10-04-2024 End: 10-05-[address] Sonal Botello DO Work Phone: -[facility] Start: 09-16-2024 End: 09-16-[address] Sonal Botello DO Work Phone: [facility] Work Phone: Start: 09-16-2024 End: 09-16-2024 Patient encounter procedure Maria Dolores Vimal [employer] -Laboratory Musa Schroeder [facility] Start: 09-16-2024 End: 09-16-2024 ambulatory Sonal Botello Facility:[facility] Start: 08-29-2024 End: 08-29-[address] Sonal Botello DO Work Phone: [facility] Work Phone: Start: 08-29-2024 End: 08-29-2024 Patient encounter procedure Tamie Crews [employer] -Laboratory Work Phone: Start: 08-29-2024 End: 08-29-2024 ambulatory Sonal Botello Facility:[facility] Start: 03-30-2024 [facility] Start: 03-30-2024 End: 03-30-2024 [facility] Start: 02-19-2024 End: 02-19-2024 ambulatory Martina Eason Facility:[facility] Start: 07-16-2023 End: 07-16-[address] Sonal Botello Work Phone: [facility] Work Phone: Start: 07-16-2023 End: 07-16-[address] Sonal Botello Work Phone: [facility]-Laboratory, Specimen Work Phone: Start: 07-16-2023 End: 07-16-[address] Sonal Botello Work Phone: [facility] Work Phone: Start: 03-06-2023 Non-patient / Non-visit Dr. Sonal Botello Work Phone: [facility] Start: 03-06-2023 End: 03-06-[address] Sonal Botello Work Phone: [facility] Work Phone: Start: 03-06-2023 End: 03-06-[address] Sonal Botello Work Phone: [facility]-Cat [facility] Work Phone: Start: 02-13-2023 End: 02-13-[address] Sonal Botello Work Phone: [facility] Work Phone: Start: 02-13-2023 End: 02-13-[address] Sonal Botello Work Phone: [facility]-Outpatient Breast Imaging Work Phone: Start: 01-25-2023 End: 01-25-[address] Sonal Botello Work Phone: [facility] Work Phone: Start: 12-05-2022 End: 12-05-2022 ambulatory [facility] Work Phone: Start: 12-05-2022 End: 12-05-2022 Patient encounter procedure [facility]-Laboratory, Musa Schroeder [facility] Start: 02-09-2022 End: 02-09-[address] Sonal Botello Work Phone: [facility] Work Phone: Start: 02-09-2022 End: 02-09-[address] Sonal Botello Work Phone: [facility]-Outpatient Breast Imaging Start: 02-07-2022 End: 02-07-[address] Sonal Botello Work Phone: [facility] Work Phone: Start: 02-07-2022 End: 02-07-[address] Sonal Botello Work Phone: [facility]-Laboratory, Specimen Start: 02-07-2022 End: 02-07-[address] Sonal Botello Work Phone: [facility] Start: 01-30-2022 End: 01-30-[address] Sonal Botello Work Phone: [facility] Start: 01-02-2022 End: 01-02-[address] Sonal Botello Work Phone: [facility]-Outpatient Pavilion Ultrasound Start: 12-28-2021 End: 12-28-[address] Sonal Botello Work Phone: [facility] Start: 12-01-2021 End: 12-01-[address] Sonal Botello Work Phone: [facility] Work Phone: Start: 12-01-2021 End: 12-01-[address] Sonal Botello Work Phone: [facility]-Laboratory Start: 11-18-2021 End: 11-18-2021 Emergency department patient visit Dr. Sonal Botello Work Phone: [facility]-Emergency Department Start: 11-10-2021 End: 11-10-[address] Sonal Botello Work Phone: [facility]-Laboratory, Specimen Start: 11-10-2021 End: 11-10-[address] Sonal Botello Work Phone: [facility] Start: 10-05-2021 End: 10-29-2021 Discharged Recurring [facility]-Nutritional Services Start: 09-21-2021 End: 09-28-2021 Discharged Recurring [facility]-Nutritional Services Start: 08-24-2021 End: 08-29-2021 Discharged Recurring [facility]-Nutritional Services Procedures Date Procedure Procedure Detail Performing Clinician Start: 01-05-2025 Vitamin D, 25-hydrox y measurement Dr. Sonal Botello DO Work Phone: Comment on above: Vitamin D StatusDefi ciency: <20 ng/mL (50nmol/L)Insufficiency: 20-30 ng/mL (50-75 nmol/L)Sufficiency: 30-100 ng/mL (75-250 nmol/L)Toxicity: >100 ng/mL (>250 nmol/L) Start: 10-04-2024 Urnls dip stick/tabl et reagent auto microscopy Dr. Sonal Botello DO Work Phone: Start: 10-04-[address] Sonal Botello DO Work Phone: Start: 09-16-2024 Vitamin D, 25-hydrox y measurement Dr. Sonal Botello DO Work Phone: Comment on above: Vitamin D StatusDefi ciency: <20 ng/mL (50nmol/L)Insufficiency: 20-30 ng/mL (50-75 nmol/L)Sufficiency: 30-100 ng/mL (75-250 nmol/L)Toxicity: >100 ng/mL (>250 nmol/L) Start: 03-06-2023 CT angiography of co ronary arteries Dr. Sonal Botello Work Phone: Start: 02-13-2023 Screening mammography Estela Botello Work Phone: Start: 02-09-2022 Screening mammography D kary Botello Work Phone: Start: 01-02-[address] Digna Botello Work Phone: Start: 01-02-[address] Sonal Botello Work Phone: Start: 11-18-2021 Plain chest X-ray Dr. Digna Botello Work Phone: Urine culture Dr. Sonal Botello Work Phone: Plan of Treatment Date Care Activity Detail Author Start: 02-19-2025 ambulatory Ambulatory Facility:[facility] Start: 01-22-2025 Thyroid stimulating hormone measurement [facility] Start: 01-22-2025 End: 01-22-2025 Patient encounter procedure -[facility] Work Phone: Start: 12-03-2024 Evaluation of diagnostic study results [facility] Start: 11-18-2021 End: 11-18-2021 [facility] Work Phone: Cardiac event recording [facility] MG Breast - bilatera l Screening [facility] Patient Education Human Coronaviruses [facility] Work Phone: Patient referral [facility] Work Phone: T4 free measurement [facility] Work Phone: T4 free measurement [facility] Thyroid stimulating hormone measurement [facility] Work Phone: Thyroid stimulating hormone measurement [facility] Triiodothyronine, fr ee measurement [facility] Work Phone: Triiodothyronine, fr ee measurement [facility] Urinalysis complete panel - Urine [facility] Payers Date Payer Category Payer Self-pay [id number] 2023 Private Health Insurance [id number] Unknown 0 [id number] Unknown [id number] 2.16.8 [id number] Unknown [id number] 2.16.8 [id number] Unknown [id number] 2.16.8 [id number] Unknown [id number] 2.16.8 [id number] Unknown [id number] 2.16.8 [id number] Unknown [id number] 2.16.8 [id number] Unknown [id number] 2.16.8 [id number] Unknown [id number] 2.16.8 [id number] Unknown [id number] 2.16.8 [id number] Unknown [id number] 2.16.8 [id number] Unknown [id number] 2.16.8 [id number] Unknown [id number] 2.16.8 [id number] Unknown [id number] 2.16.8 [id number] Unknown [id number] 2.16.8 [id number] Unknown [id number] 2.16.8 [id number] Unknown [id number] 2.16.8 [id number] Social History Date Type Detail Facility Start: 04-14-2021 End: 07-16-2023 Tobacco smoking status NHIS Unknown if ever smoked [facility] Start: 1970 Sex Assigned At Female W [facility] Start: 07-16-2023 End: 12-03-2024 Tobacco smoking status NHIS Never smoked tobacco (finding) [facility] Sex Female [facility] [place] Goals Date Patient Goal Desired Activity /State Mental Status Date Assessment Result Facility 11-18-2021 Cognitive function Level Of Consciousness Awake [facility] Work Phone: Clinical Notes 07-16-2023 to 10-04-2024 Note Date & Type Note Facility 10-04-2024 Evaluation note Diagnosis Onset Date Resolution Urinary tract infection acute October 04, 2024 1 0:48am [facility] Work Phone: 1(690) 994-820307-06-2025 Evaluation note* Diagnosis Onset Date Resolution Status Admit Date Urinary tract infection acute J analisa 2024 10:48am Heart palpitations acute 2024 2:20pm [facility] Work Phone: 1(884) 951-630607-06-2025 Evaluation note* Diagnosis Onset Date Resolution Status Admit Date Urinary tract infection acute J analisa 2024 10:48am Heart palpitations acute 2024 2:20pm 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 January 22, 2025 8:34am PCOS (polycystic ovarian syndrome) chronic January 22 8:34am [facility] Work Phone: 1(832) 474-365607-06-2025 [facility] [address], [address] [place] [address] OFFICE VISIT Date of Service: 10/04/24 MR#: [id number] Acct: [id number] Name: NICKIE STUBBS HERNANDEZ Rep #: [id number] : 1970 Provider: JESU Wise Age/Sex: 54/F Location: [facility] Status: Signed Intake Vital Signs 01/24/24 08:22 10/04/24 11:22 Height 5 ft 6 in 5 ft 6 in Weight: 192 lb BMI 30.9 BP 112/78 Blood Pressure Location Lt brachial Position Sitting Respiration 16 Pulse 78 Pulse Source Monitor Temp 98.0 F Temp Source Oral Pulse Oximetry (%) 98 Oxygen Delivery Method room air Intake Visit Reasons: CONCERN FOR UTI Contract Runner Required: No Is patient in pain?: No Allergies No Known Allergies Allergy (Verified 10/04/24 11:10) Medications ?Medication ?Instructions ?Recorded ?Confirmed ?Type pantoprazole 40 mg granules 40 mg PO QHS 02/24/1909/23 History delayed-release for susp in packet (Protonix) Bacillus coagulans 800 million 1 cell PO DAILY 1 10/04/24 History cell tablet (Digestive Advantage Probiotics-Prebiotic) multivitamin 1 tab PO DAILY 02/27/2109/23 History bupropion HCl 300 mg 24 hr tablet, 300 mg PO QAM 01/2510/04/24 History extended release cholecalciferol (vitamin D3) 50 50 mcg PO DAILY 10/04/24 History mcg (2,000 unit) capsule omega 4-tjf-tqv-fish oil 300 1 cap PO QDAY 01/24/24 History mg-1,000 mg capsule (Fish Oil) tirzepatide (weight loss) 10 10 mg subcut QWEEK 10/04/24 History mg/0.5 mL subcutaneous pen injector (Zepbound) levothyroxine 112 mcg tablet 112 mcg PO DAILY #90 tabs 01/27/24 10/04/24 Rx liothyronine 5 mcg tablet 5 mcg PO BID #180 tabs 01/2610/04/24 Rx citalopram 10 mg tablet 20 mg PO QPM 10/04/24 History ferrous sulfate 325 mg (65 mg 325 mg PO QDAY 10/04/24 10/04/24 History iron) tablet (iron) nitrofurantoin 100 mg PO Q12H 7 days #14 ca ps 10/04/24 10/04/24 Rx monohydrate/macrocrystals 100 mg capsule (Macrobid) Nurse's Note: Pt states this morning she woke up w/ dysuria, urinary frequency, urgency, hesitancy, retention andpelvic pressure. Pt took azo this morning which is helping sx's. Pt has not had a uti in a long time. Pt denies urinary incontinence. POC attempted but would be skewed due to azo. MOD non hemolyzed bl ood, and moderate leuks noted. 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 Cholecystectomy planned Tonsillectomy planned Thyroid disease GERD (gastroesophageal reflux disease) Headache Gallstones Hypothyroid Fibroids Depression Anxiety PCOS (polycystic ovarian syndrome) Surgical History History of hernia surgery History of tonsillectomy H/O sinus surgery Hernia History of cholecystectomy Family History Father Heart disease Grandmother Breast cancer Colon cancer Aunt Colon cancer Mother COPD (chronic obstructive pulmonary disease) Other Anxiety Cancer Depression High cholesterol Myocardial infarction Suicide Thyroid disorder Social History number of children: 3 current occupational status: employed current occupation: [employer] Smoking Status: Never smoker alcohol intake: never substance use type: does not use what type of physical activity do you participate in: walking frequency: 3-4 times per week seatbelt use: always do you feel safe at home: Yes 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 Shestates burning withurination, urinary frequency, urinary urgency, urinary retention, suprapubic fullness sensation, and pain with urination. She states this started today. She denies fever, chills, or bodyaches. ROS Const Constitutional: No body ache, chills, excessive sweating, fatigue, fever(s), frequent falls, headache(s), snoring, weakness, sleep problems or change in appetite Eyes Eyes: No blurry vision, change in vision, eye pain or Light sensitivity ENT ENT: No abnormal hearing, ear or mastoid pain, tinnitus, nasal congestion, headache(s), neck pain or sore throat Resp Respiratory: No cough, shortness of breath, snoring or wheezing Cardio Cardiology: No chest pain at rest, chest pain with exertion, excessive sweating,shortness of breath, dyspnea on exertion, lightheadedness, orthopnea or palpitations Gastro GI: No abdominal pain, change in bowel habits, constipation, cramping, diarrhea,nausea/dyspepsia orvomiting Genitourinary-Female: Positive for burning urination, painful urination, urinaryfrequency, urinary urgency, urinary retention and suprapubic fullness; No urinary incontinence, abnormal vaginal bleeding or pelvic pain Musc Musculoskeletal: No abnormal gait, joint pain, back pain, limited range of motion, neck pain or numbness Skin Skin: No dry skin, redness, lesions, itchy eyes, rash or wounds Neuro Neurology: No abnormal gait, abnormal hearing, weakness, frequent falls, headache(s), memory loss or numbness Psych Psychiatric: No anxiety, No change in appetite, No depression, No memory loss and No Thoughts of harming yourself/Others Endo Endocrine: No cold intolerance, excessive sweating, fatigue, flushing, heat intolerance, increased thirst/drinking or increased hunger Aller/Imm Allergy/Immunologic: No itchy eyes, seasonal allergy symptoms, hives or wheezing Howie/Lymp Hematologic/Lymphatic: No easy bleeding, easy bruising, enlarged lymph nodes or other Exam Const General: cooperative, healthy appearing, comfortable and no acute distress Orientation: alert, awake and oriented x3 Chest Chest palpation & inspection: normal inspection of the chest Resp Effort & Inspection: normal respiratory effort Auscultation: Bilateral: Clear to Auscultation Cardio Rhythm: other (Normal) Heart Sounds: S1 normal, S2 normal and no murmurs GI Inspection: normal to inspection and non-distended Auscultation: normal bowel sounds Palpation: soft and nontender General: No CVA tenderness Skin General: no rashes or lesions noted Coding Level of Care Code Off vis,est,level 3 Diagnoses Acute cystitis with hematuria N30.01 Hematuria presence: with hematuria Urinary tract infection type: acute cystitis Assessment and Plan Assessment and Plan (1) Urinary tract infection: Status: Acute Qualifiers: Hematuria presence: with hematuria Urinary tract infection type: acute cystitis Qualified Code(s): N30.01 - Acute cystitis with hematuria Plan: Urine dip was positive for blood and leukocyte esterase. Will treat as prescribed. Encouraged to get plenty of rest, drink lots of clear liquids, and use Tylenol or Ibuprofen (unless contraindicated)for fever and comfort. Patientalso educated on other symptomatic management techniques. To be seen in 7-10 days if no improvement; sooner if worsening of symptoms.? Patient advised of potential red flags and when appropriate to report to the ED.? Patient verbalized understanding and agreement with all the above. Orders: Orders Urinalysis, Complete Today R30.0 - Dysuria Culture, Urine Today R30.0 - Dysuria Medications: New nitrofurantoin monohyd/m-cryst 100 mg (Macrobid) must administer with a meal/food 100 mg PO Q12H 7 days 14 caps 0RF Plan Details Goals & Barriers: Goals Decrease pain Improve alignment Improve workability Decrease spasm Target Due Date 05/03/22 Barriers Carrying young children 10/04/24 1149 P CORROSION CONTROL FITTER-C> Date _ Florencio Sloan Billie CORROSION CONTROL FITTER CORROSION CONTROL FITTER-C Cosigner Signature: Date (if applicable) CC: Dr. Sonal Botello, DO ~ [facility]07-06-2025 Progress note Author Florencio Wise [facility] Note Date/Time October 04, 2024 11:49 am [facility] [address], [address] [place] [address] OFFICE VISIT Date of Service: 10/04/24 MR#: [id number] Acct: [id number] Name: AARON STUBBSMERCEDES NG Rep #: [id number] : 1970 Provider: JESU Wise Age/Sex: 54/F Location: [facility] Status: Signed Intake Vital Signs 01/24/24 08:22 10/04/24 11:22 Height 5 ft 6 in 5 ft 6 in Weight: 192 lb BMI 30.9 BP 112/78 Blood Pressure Location Lt brachial Position Sitting Respiration 16 Pulse 78 Pulse Source Monitor Temp 98.0 F Temp Source Oral Pulse Oximetry (%) 98 Oxygen Delivery Method room air Intake Visit Reasons: CONCERN FOR UTI Contract Runner Required: No Is patient in pain?: No Allergies No Known Allergies Allergy (Verified 10/04/24 11:10) Medications ?Medication ?Instructions ?Recorded ?Confirmed ?Type pantoprazole 40 mg granules 40 mg PO QHS 02/24/1909/23 History delayed-release for susp in packet (Protonix) Bacillus coagulans 800 million 1 cell PO DAILY 1 10/04/24 History cell tablet (Digestive Advantage Probiotics-Prebiotic) multivitamin 1 tab PO DAILY 02/27/2109/23 History bupropion HCl 300 mg 24 hr tablet, 300 mg PO QAM 01/2510/04/24 History extended release cholecalciferol (vitamin D3) 50 50 mcg PO DAILY 10/04/24 History mcg (2,000 unit) capsule omega 8-owu-ahh-fish oil 300 1 cap PO QDAY 01/24/24 History mg-1,000 mg capsule (Fish Oil) tirzepatide (weight loss) 10 10 mg subcut QWEEK 10/04/24 History mg/0.5 mL subcutaneous pen injector (Zepbound) levothyroxine 112 mcg tablet 112 mcg PO DAILY #90 tabs 01/27/24 10/04/24 Rx liothyronine 5 mcg tablet 5 mcg PO BID #180 tabs 01/2610/04/24 Rx citalopram 10 mg tablet 20 mg PO QPM 10/04/24 History ferrous sulfate 325 mg (65 mg 325 mg PO QDAY 10/04/24 10/04/24 History iron) tablet (iron) nitrofurantoin 100 mg PO Q12H 7 days #14 ca ps 10/04/24 10/04/24 Rx monohydrate/macrocrystals 100 mg capsule (Macrobid) Nurse's Note: Pt states this morning she woke up w/ dysuria, urinary frequency, urgency, hesitancy, retention and pelvic pressure. Pt took azo this morning which is helping sx's. Pt has not had a uti in a long time. Pt denies urinary incontinence. POC attempted but would be skewed due to azo. MOD non hemolyzed blood, and moderate leuks noted. 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 Cholecystectomy planned Tonsillectomy planned Thyroid disease GERD (gastroesophageal reflux disease) Headache Gallstones Hypothyroid Fibroids Depression Anxiety PCOS (polycystic ovarian syndrome) Surgical History History of hernia surgery History of tonsillectomy H/O sinus surgery Hernia History of cholecystectomy Family History Father Heart disease Grandmother Breast cancer Colon cancer Aunt Colon cancer Mother COPD (chronic obstructive pulmonary disease) Other Anxiety Cancer Depression High cholesterol Myocardial infarction Suicide Thyroid disorder Social History number of children: 3 current occupational status: employed current occupation: [employer] Smoking Status: Never smoker alcohol intake: never substance use type: does not use what type of physical activity do you participate in: walking frequency: 3-4 times per week seatbelt use: always do you feel safe at home: Yes 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 Shestates burning with urination, urinary frequency, urinary urgency, urinary retention, suprapubic fullness sensation, and pain with urination. She states this started today. She denies fever, chills, or bodyaches. ROS Const Constitutional: No body ache, chills, excessive sweating, fatigue, fever(s), frequent falls, headache(s), snoring, weakness, sleep problems or change in appetite Eyes Eyes: No blurry vision, change in vision, eye pain or Light sensitivity ENT ENT: No abnormal hearing, ear or mastoid pain, tinnitus, nasal congestion, headache(s), neck pain or sore throat Resp Respiratory: No cough, shortness of breath, snoring or wheezing Cardio Cardiology: No chest pain at rest, chest pain with exertion, excessive sweating,shortness of breath, dyspnea on exertion, lightheadedness, orthopnea or palpitations Gastro GI: No abdominal pain, change in bowel habits, constipation, cramping, diarrhea,nausea/dyspepsia or vomiting Genitourinary-Female: Positive for burning urination, painful urination, urinaryfrequency, urinary urgency, urinary retention and suprapubic fullness; No urinary incontinence, abnormal vaginal bleeding or pelvic pain Musc Musculoskeletal: No abnormal gait, joint pain, back pain, limited range of motion, neck pain or numbness Skin Skin: No dry skin, redness, lesions, itchy eyes, rash or wounds Neuro Neurology: No abnormal gait, abnormal hearing, weakness, frequent falls, headache(s), memory loss or numbness Psych Psychiatric: No anxiety, No change in appetite, No depression, No memory loss and No Thoughts of harming yourself/Others Endo Endocrine: No cold intolerance, excessive sweating, fatigue, flushing, heat intolerance, increased thirst/drinking or increased hunger Aller/Imm Allergy/Immunologic: No itchy eyes, seasonal allergy symptoms, hives or wheezing Howie/Lymp Hematologic/Lymphatic: No easy bleeding, easy bruising, enlarged lymph nodes or other Exam Const General: cooperative, healthy appearing, comfortable and no acute distress Orientation: alert, awake and oriented x3 Chest Chest palpation & inspection: normal inspection of the chest Resp Effort & Inspection: normal respiratory effort Auscultation: Bilateral: Clear to Auscultation Cardio Rhythm: other (Normal) Heart Sounds: S1 normal, S2 normal and no murmurs GI Inspection: normal to inspection and non-distended Auscultation: normal bowel sounds Palpation: soft and nontender General: No CVA tenderness Skin General: no rashes or lesions noted Coding Level of Care Code Off vis,est,level 3 Diagnoses Acute cystitis with hematuria N30.01 Hematuria presence: with hematuria Urinary tract infection type: acute cystitis Assessment and Plan Assessment and Plan (1) Urinary tract infection: Status: Acute Qualifiers: Hematuria presence: with hematuria Urinary tract infection type: acute cystitis Qualified Code(s): N30.01 - Acute cystitis with hematuria Plan: Urine dip was positive for blood and leukocyte esterase. Will treat as prescribed. Encouraged to get plenty of rest, drink lots of clear liquids, and use Tylenol or Ibuprofen (unless contraindicated) for fever and comfort. Patientalso educated on other symptomatic management techniques. To be seen in 7-10 days if no improvement; sooner if worsening of symptoms.? Patient advised of potential red flags and when appropriate to report to the ED.? Patient verbalized understanding and agreement with all the above. Orders: Orders Urinalysis, Complete Today R30.0 - Dysuria Culture, Urine Today R30.0 - Dysuria Medications: New nitrofurantoin monohyd/m-cryst 100 mg (Macrobid) must administer with a meal/food 100 mg PO Q12H 7 days 14 caps 0RF Plan Details Goals & Barriers: Goals Decrease pain Improve alignment Improve workability Decrease spasm Target Due Date 05/03/22 Barriers Carrying young children 10/04/24 1149 <Electronically signed by Florencio DRUMMONDC> Date _ Florencio Wise NP CORROSION CONTROL FITTER-C Cosigner Signature: Date (if applicable) CC: Dr. Sonal Botello, DO ~ [facility] Work Phone: 1(678) 966-928304-16-2024 NotePap Smear Specimen AdequacyApril 2023 9:53amComment.Satisfactory for evaluation. No endocervical component is identified.[facility]ACED A#[id number] Memorial HospitalComment on above:Satisfactory for evaluation. No endocervical component is identified. 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 acute Obesity acute PCOS (polycystic ovarian syndrome) acute Prediabetes acute Menorrhagia acute [facility] Work Phone: Evaluation note* Diagnosis Onset Date Resolution Status 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 Obesity chronic PCOS (polycystic ovarian syndrome) chronic [facility] Work Phone: Evaluation note* Diagnosis Onset Date Resolution Status Encounter for routine gynecological examination noneactive [facility] Work Phone: Evaluation note* Diagnosis Onset Date Resolution Status Admit Date Urinary tract infection acute J analisa 2024 10:48am [facility] Work Phone: Reason for referral (narrative)No reason for referral information availableWMagruder Memorial Hospital Work Phone: Summary Purpose Family History No Family History Records Found Relationship Condition Age at Onset Recorded Date/T sheryl Not Specified High blood cholesterol Unknown Anxiety Unknown Depression Unknown Myocardial infarction Unknown Suicide Unknown Malignant neoplasm Unknown Disorder of thyroid Unknown father Cardiac disease Unknown grandmother Malignant neoplasm of breast Unknown Malignant neoplasm of colon Unknown aunt Malignant neoplasm of colon Unknown mother Chronic obstructive pulmonary disease Unk nown Advance Directives No Advanced Directives Records Found Advance Directive Response Recorded Date/ Time Living Will Yes April 14 8:08am Power of Large Sheetfed Press Operator Yes April 14, 2021 8:08am Advance Directive Response Recorded Date/ Time Name of Medical Power of Large Sheetfed Press Operator CAMERON GAINES AND November 18, 2021 8:07pm Living Will Yes November 18 8:07pm Power of Large Sheetfed Press Operator Yes November 18 8:07pm Advance Directive Response Recorded Date/ Time Name of Medical Power of Large Sheetfed Press Operator CAMERON GAINES AND November 18, 2021 7:07pm Living Will Yes November 18 2 7:07pm Power of Large Sheetfed Press Operator Yes November 18 7:07pm Advance Directive Response Recorded Date/ Time Living Will Yes April 09 3 9:30am Power of Large Sheetfed Press Operator Yes April 09 023 9:30am Advance Directive Response Recorded Date/ Time Living Will Yes April 09 3 8:30am Power of Large Sheetfed Press Operator Yes April 09 023 8:30am Advance Directive Response Recorded Date/ Time Living Will Yes April 09 3 9:30am Do you have a Healthcare Power of Large Sheetfed Press Operator? 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 Obesity PCOS (polycystic ovarian syndrome) Prediabetes Menorrhagia Chief Complaint 1 Y FU Encounter for screening mammogram for malignant ne Reason for Visit Hypothyroidism due t o Cynthia's thyroiditis Obesity PCOS (polycystic ovarian syndrome) Chief Complaint 1 Y FU Encounter for screening mammogram for malignant ne Z82.49 Z82.49 Reason for Visit Hypothyroidism due t o Cynthia's thyroiditis Obesity PCOS (polycystic ovarian syndrome) Chief Complaint 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) Reason for Visit Encounter for routin e gynecological examination Chief Complaint Admit Date E-ORDER August 29, 2024 11:20 am Chief Complaint Admit Date E-ORDER August 29, 2024 11:20 am CONCERN FOR UTI October 04, 2024 10:48 am Reason for Visit Admit Date Urinary tract infection October 04, 2024 1 0:48am Chief Complaint Admit Date E-ORDER August 29, 2024 11:20 am CONCERN FOR UTI October 04, 2024 10:48 am SVT/tachycardia December 03, 2024 2:20pm Reason for Visit Admit Date Urinary tract infection October 04, 2024 1 0:48am Heart palpitations December 03, 2024 2:20pm Chief Complaint Admit Date CONCERN FOR UTI October 04, 2024 10:48 am SVT/tachycardia December 03, 2024 2:20pm 30 DAY MONITOR December 10, 2024 9:00am PALPITATIONS December 10, 2024 9:58am arryhthmia, palpitations January 01 11:02am NEED ORDER January 05, 2025 10 :46am 1 Y FU January 22, 2025 8 :34am YUNIOR January 22, 2025 9 :00am Reason for Visit Admit Date Urinary tract infection October 04, 2024 1 0:48am Heart palpitations December 03, 2024 2:20pm Hypothyroidism due to Cynthia's thyroi ditis January 22, 2025 8:34am PCOS (polycystic ovarian syndrome) Octob er 2024 8:34am Additional Source Comments INFORMATION SOURCE (unrecogn ized section and content) DATE CREATED AUTHOR 09/25/2017 [facility] DATE CREATED AUTHOR AUTHOR'S KLAUDIA ATION [facility]/20[facility] Goals (unrecognized section and content) Goals may be documented in a n alternate sectionGoals may be documented in an alternate sectionGoals may be documented in an alternate sectionGoals may be documented in an alternate sectionGoals may be documented in an alternate section Care Teams (unrecognized sec tion and content) Team Status: Active Member Role Status Dates Dr. Sonal Botello DO Family Provider Active Dr. Sonal Botello DO Primary Care Provider Active Team Status: Inactive Member Role Status Dates Dr. Sonal Botello DO Primary Care Provide r, Attending Provider, Referring Provider Active Team Status: Inactive Member Role Status Dates Dr. Sonal Botello DO Primary Care Provider, Referring P rovider Active Dr. Levi Moss MD Attending Provider Active Team Status: Inactive Member Role Status Dates Dr. Sonal Botello DO Primary Care Provider Active Dr. Toña Thakkar MD Attending Provider, Referr ing Provider Active Team Status: Active Member Role Status Dates Dr. Sonal Botello DO Primary Care Provide r, Referring Provider, Other Provider Active Dr. Levi Moss MD Other Provider Active Dr. Piotr Shukla MD Attending Provider Active Team Status: Inactive Member Role Status Dates Dr. Sonal Botello DO Primary Care Provide r, Attending Provider, Referring Provider Active Dr. Levi Moss MD Other Provider Active Team Status: Inactive Member Role Status Dates Dr. Sonal Botello DO Primary Care Provider, Referring P rovider Active Dr. Martina Eason DO Attending Provider Activ e Team Status: Inactive Member Role Status Dates Dr. Sonal Botello DO Primary Care Provider Active Dr. Martina Eason DO Attending Provider Activ e Team Status: Inactive Member Role Status Dates Dr. Sonal Botello DO Primary Care Provider Active Start: August 29, 2024 End: August 29, 2024 JESU Victor Attending Provider Active Start: August 29, 2024 End: August 29, 2024 JESU Victor Referring Provider Active Start: August 29, 2024 End: August 29, 2024 Team Status: Active Member Role Status Dates Dr. Sonal Botello DO Primary Care Provider Active Team Status: Inactive Member Role Status Dates Dr. Sonal Botello DO Primary Care Provider Active Start: September 16, 2024 End: September 16, 2024 JESU Calixto Attending Provider Active St art: September 16, 2024 End: September 16, 2024 Team Status: Active Member Role/Relationship Status Dates Dr. oSnal Botello DO Primary Care Provider Active Team Status: Inactive Member Role/Relationship Status Dates Dr. Sonal Botello DO Primary Care Provider Active Start: August 29, 2024 End: August 29, 2024 JESU Victor Attending Provider Active Start: August 29, 2024 End: August 29, 2024 BHANU VictorC Referring Provider Active Start: August 29, 2024 End: August 29, 2024 Team Status: Inactive Member Role/Relationship Status Dates Dr. Sonal Botello DO Primary Care Provider Active Start: September 16, 2024 End: September 16, 2024 Maria Dolores Celis NP-C Attending Provider Active St art: September 16, 2024 End: September 16, 2024 Team Status: Inactive Member Role/Relationship Status Dates Dr. Sonal Botello DO Primary Care Provider Active Start: October 04, 2024 End: October 04, 2024 Dr. Sonal Botello DO Referring Provider Active St art: October 04, 2024 End: October 04, 2024 Florencio Wise [employer]TER, [employer]ROSION CONTROL FITTER-C Attending Provider Active S tart: October 04, 2024 End: October 04, 2024 Team Status: Inactive Member Role/Relationship Status Dates Dr. Sonal Botello DO Primary Care Provider Active Start: October 05, 2024 End: October 05, 2024 Florencio Wise [employer]TER, CORROSION CONTROL FITTER-C Attending Provider Active S tart: October 05, 2024 End: October 05, 2024 Florencio Wise [employer]ROSION CONTROL FITTER, CORROSION CONTROL FITTER-C Referring Provider Active S tart: October 05, 2024 End: October 05, 2024 Team Status: Inactive Member Role/Relationship Status Dates Dr. Sonal Botello DO Primary Care Provider Active Start: December 03, 2024 End: December 03, 2024 Dr. Sonal Botello DO Referring Provider Active St art: December 03, 2024 End: December 03, 2024 Dr. Nnamdi Del Real MD Attending Provider Active Start: December 03, 2024 End: December 03, 2024 Team Status: Active Member Role/Relationship Status Dates Dr. Sonal Botello DO Primary care physician Active Team Status: Inactive Member Role/Relationship Status Dates Dr. Sonal Botello DO Primary care physician Active Start: October 04, 2024 End: October 04, 2024 Dr. Sonal Botello DO Referring Provider Active St art: October 04, 2024 End: October 04, 2024 Florencio Wise [employer]OL FITTER, CORROSION CONTROL FITTER-C Attending physician Active Start: October 04, 2024 End: October 04, 2024 Team Status: Inactive Member Role/Relationship Status Dates Dr. Sonal Botello DO Primary care physician Active Start: October 05, 2024 End: October 05, 2024 Florencio Wise [employer]OL [employer]TER, CORROSION CONTROL FITTER-C Attending physician Active Start: October 05, 2024 End: October 05, 2024 Florencio Wise [employer]ION CONTROL FITTER, CORROSION CONTROL FITTER-C Referring Provider Active S tart: October 05, 2024 End: October 05, 2024 Team Status: Inactive Member Role/Relationship Status Dates Dr. Sonal Botello DO Primary care physician Active Start: December 03, 2024 End: December 03, 2024 Dr. Sonal Botello DO Referring Provider Active St art: December 03, 2024 End: December 03, 2024 Dr. Nnamdi Del Real MD Attending physician Active Start: December 03, 2024 End: December 03, 2024 Team Status: Active Member Role/Relationship Status Dates Dr. Sonal Botello DO Primary care physician Active Start: December 10, 2024 Dr. Nnamdi Del Real MD Attending physician Active Start: December 10, 2024 Dr. Nnamdi Del Real MD Referring Provider Active Start: December 10, 2024 Team Status: Active Member Role/Relationship Status Dates Dr. Sonal Botello DO Primary care physician Active Start: December 10, 2024 Dr. Nnamdi Del Real MD Attending physician Active Start: December 10, 2024 Dr. Nnamdi Del Real MD Referring Provider Active Start: December 10, 2024 Team Status: Inactive Member Role/Relationship Status Dates Dr. Sonal Botello DO Primary care physician Active Start: January 01, 2025 End: January 01, 2025 Dr. Nnamdi Del Real MD Attending physician Active Start: January 01, 2025 End: January 01, 2025 Dr. Nnamdi Del Real MD Referring Provider Active Start: January 01, 2025 End: January 01, 2025 Team Status: Active Member Role/Relationship Status Dates Dr. Sonal Botello DO Primary care physician Active Start: January 01, 2025 Dr. Xander Pennington MD Attending physician Acti ve Start: January 01, 2025 Team Status: Inactive Member Role/Relationship Status Dates Dr. Sonal Botello DO Primary care physician Active Start: January 05, 2025 End: January 05, 2025 JESU Calixto Attending physician Active S tart: January 05, 2025 End: January 05, 2025 JESU Calixto Referring Provider Active St art: January 05, 2025 End: January 05, 2025 Team Status: Inactive Member Role/Relationship Status Dates Dr. Sonal Botello DO Primary care physician Active Start: January 22, 2025 End: January 22, 2025 Dr. Sonal Botello DO Referring Provider Active St art: January 22, 2025 End: January 22, 2025 Dr. Levi Moss MD Attending physician Active St art: January 22, 2025 End: January 22, 2025 Team Status: Active Member Role/Relationship Status Dates Dr. Sonal Botello DO Primary care physician Active Start: January 22, 2025 JESU Calixto Attending physician Active S tart: January 22, 2025 JESU Calixto Referring Provider Active St art: January 22, 2025 FOR RECORDS PERTAINING TO PATIENTS WHO ARE OR HAVE BEEN ENROLLED IN A CHEMICAL DEPENDENCY/SUBSTANCEABUSE PROGRAM, SOME INFORMATION MAY BE OMITTED. This clinical summary was aggregated from multiple sources. Caution should be exercised in using it in the provision of clinical care. This summary normalizes information from multiple sources, and as a consequence, information in this document may materially change the coding, format and clinical context of patient data. In addition, data may be omitted in some cases. CLINICAL DECISIONS SHOULD BE BASED ON THE PRIMARY CLINICAL RECORDS. [facility] [employer] [facility]. provides no warranty or guarantee of the accuracy or completeness of information in this document.
== END | disposition home or self-care (01) ==
LOC: OPBI 09:53
PROVIDERS: PCP Family Medicine; Referring Provider Nurse Practitioner Women's Health; Visit Provider Nurse Practitioner Women's Health
DX: Z12.31 Encounter for screening mammogram for malignant neoplasm of breast (principal)
CPT/HCPCS: 77063; 77067